=== PATIENT | male | born 1965 | race Caucasian/White ===

== ENCOUNTER → 2020-06-20 07:38 | Outpatient (CLI) | payer BC, SELFPAY ==
--- NOTE | 2020-06-20 07:51 | RAD_ITS ---
PROCEDURE: Fluoroscopic guided right shoulder Injection DATE: 06/20/2020. INDICATION: Male, 55 years old. Chronic right shoulder pain. PHYSICIAN: New Flanagan M.D. MEDICATIONS: 12 mg of BETAMETHASONE and 4 cc of 1% LIDOCAINE. 2% lidocaine administered subcutaneously for local anesthesia. ACCESS SITE: Right shoulder. NEEDLE: 22-gauge spinal needle. FLUOROSCOPY TIME (if supplied): (0:44) minutes/seconds. One image was obtained. FINDINGS: The risks, benefits, and alternatives to the procedure were explained to the patient. The specific risks of bleeding, infection, and neurovascular injury were detailed and accepted. Witnessed informed consent was obtained. A 22-gauge spinal needle was positioned under radiographic fluoroscopic localization. Approximately 2 cc of ISOVUE-300 instilled for localization purposes. Medication was then injected. The patient tolerated the procedure well without any immediate complications. RAD/Inj/Asp Dario Jt Should/Hip/Knee IMPRESSION: 1. Successful fluoroscopic guided right shoulder injection. Electronically Signed: New Flanagan, at 8:44 EDT , Service support ,
== END ==
PROVIDERS: PCP Family Medicine; Referring Provider Specialist; Visit Provider Specialist
DX: M19.011 Primary osteoarthritis, right shoulder (principal)
CPT/HCPCS: 20610; 77002; Q9967; J0702

== ENCOUNTER → 2024-10-16 | Outpatient (CLI) | payer BC, SELFPAY ==
[2024-10-16 17:35] LABS: Prothrombin Time (Protime)PT. 12.7 SECONDS (11.7-14.9)
[2024-10-16 18:42] LABS: CRP < 2.90 mg/L (0.0-3.0)
[2024-10-18 16:10] LABS: Endomysial Antibody IgA Negative (Negative); Immunoglobulin A 313 mg/dL (90-386); t-Transglutaminase IgA <2 U/mL (0-3)
[2024-10-21 16:08] LABS: Beef <0.10 kU/L (Class 0); Chocolate <0.10 kU/L (Class 0); Codfish <0.10 kU/L (Class 0); Corn 0.41 kU/L (Class I); Egg, Whole <0.10 kU/L (Class 0); Milk (Cow) <0.10 kU/L (Class 0); Mussels 0.24 kU/L (Class 0/I); Peanut 0.81 kU/L (Class II); Pork <0.10 kU/L (Class 0); Salmon <0.10 kU/L (Class 0); Shrimp 1.78 kU/L (Class III); Soybean 0.43 kU/L (Class I); Tuna <0.10 kU/L (Class 0); Wheat 0.59 kU/L (Class II)
== END | disposition home or self-care (01) ==
LOC: LAB 16:58
PROVIDERS: PCP Family Medicine; Referring Provider Nurse Practitioner Acute Care; Visit Provider Nurse Practitioner Acute Care
DX: R10.9 Unspecified abdominal pain (principal); R19.7 Diarrhea, unspecified; R15.2 Fecal urgency
CPT/HCPCS: 36415; 82784; 83516; 84443; 85610; 86003; 86005; 86140; 86255

== ENCOUNTER → 2024-10-25 | Outpatient (CLI) | payer BC, SELFPAY ==
[2024-10-27 07:09] LABS: Calprotectin, Stool 75 ug/g (0-120)
[2024-10-28 01:07] LABS: Pancreatic Elastase, Fecal > 800 (>200)
== END | disposition home or self-care (01) ==
LOC: LAB 09:24 → LABSPEC 09:25
PROVIDERS: PCP Family Medicine; Referring Provider Nurse Practitioner Acute Care; Visit Provider Nurse Practitioner Acute Care
DX: K58.9 Irritable bowel syndrome, unspecified (principal); R10.9 Unspecified abdominal pain; R19.7 Diarrhea, unspecified; R15.2 Fecal urgency
CPT/HCPCS: 82653; 83993; 87493; 87506

== ENCOUNTER → 2024-11-10 | Outpatient (CLI) | payer BC, SELFPAY ==
--- NOTE | 2024-11-10 08:20 | US_ITS ---
STUDY: ABDOMINAL ULTRASOUND - RIGHT UPPER QUADRANT; ELASTOGRAPHY REASON FOR VISIT: Male, 59 years old. Right upper quadrant pain. Alcohol abuse. TECHNIQUE: Ultrasound evaluation of the right upper quadrant was performed with real-time and static velez-scale imaging. Point quantification shear wave elastography was performed ([email or web address]). TECHNICAL QUALITY: Adequate. COMPARISON: None. FINDINGS: Liver: The liver is enlarged and measures 18.5 cm. There is increased echogenicity consistent with fatty infiltration. The bile ducts are within normal limits. There is hepatic color flow. The direction of portal flow is hepatopetal. There is a 2 cm x 2 cm x 1.6 cm cyst in the left lobe of the liver. There is also evidence of a 1.1 cm x 1.3 cm x 0.9 cm cyst in the right lobe. Median liver stiffness measured 5.3 kPa. Gallbladder: Normal distended gallbladder. The gallbladder wall measures 2.0 mm. There is a negative sonographic Elliott''s sign. There is no pericholecystic fluid. There are no gallstones. Common Bile Duct (C.B.D.): The common bile duct measures 3 mm. Pancreas: There is normal echogenicity of the visualized pancreas. There is no demonstrated pancreatic mass or cyst. Right Kidney: Normal size of the right kidney. The right kidney measures 10.4 cm x 7.2 cm x 6.2 cm. Normal renal cortex. The right cortex measures 1.5 cm. There is no demonstrated renal mass or cyst. There is no right hydronephrosis. US/ABD Limited w/ Elastography IMPRESSION: 1. Liver stiffness measures 5.3 kPa compatible with F0-F1 (Normal to mild liver fibrosis) Metavir score. 2. Hepatomegaly. Hepatic cysts. Electronically Signed: New Flanagan MD at 15:28 EST ,
== END | disposition home or self-care (01) ==
LOC: US 08:20
PROVIDERS: PCP Physician Assistant; Referring Provider Nurse Practitioner Acute Care; Visit Provider Nurse Practitioner Acute Care
DX: R10.9 Unspecified abdominal pain (principal); R19.7 Diarrhea, unspecified; R15.2 Fecal urgency
CPT/HCPCS: 76705; 76981

== ENCOUNTER 2025-01-05 13:06 | Day surgery (SDC) | payer BC, SELFPAY ==
--- NOTE | 2025-01-04 16:38 | PAT.ANESEVAL ---
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 When Was Last Pacemaker Check QUESTION #4 FULL TEXT: You/Your Family Experience fever (hyperthermia) with Anesthesia Last Oral Intake Last Oral intake: Last Oral Intake NPO since Meds taken in AM with sips of water? Meds patient instructed to take am of surgery PONV PONV - professor of anthropology: PONV - professor of anthropology Female No 01/04/25 15:16 HX of Motion Sickness No 01/04/25 15:16 HX of N/V After Surgery No 01/04/25 15:16 Non-Smoker No 01/04/25 15:16 Duration of Surgery greater No 01/04/25 15:16 than 60 minutes Number of Risk Factors PONV Score Respiratory Assessment Respiratory Assessment - professor of anthropology: Respiratory Tract Infection Hx - professor of anthropology Hx Respiratory Tract Infection No 01/04/25 15:16 STOP Sleep Apnea STOP Sleep Apnea - professor of anthropology: STOP Sleep Apnea - professor of anthropology Hx Hypertension Yes: still high but lower 01/04/25 15:16 than it was Hx Sleep Apnea No 01/04/25 15:16 CPAP BIPAP Do you snore loudly (louder No 01/04/25 15:16 than talking or can be heard Do you often feel tired/ No 01/04/25 15:16 fatigued/ sleepy during daytime? Has anyone observed you stop No 01/04/25 15:16 breathing during sleep? STOP Results Negative 01/04/25 15:16 QUESTION #5 FULL TEXT : Do you snore loudly (louder than talking or can be heard through closed doors)? 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 Specify any problems Hx of Preganancy in last 3 N/A 01/04/25 15:16 Months Nurse Filling Out Transfusion MGRIALMA 01/04/25 15:16 & Questions: Date: 01/04/25 01/04/25 15:16 Time: 15:18 01/04/25 15:16 Patient unable to answer at this time (ie. confused, unrespo /Reproduction History /Reproductive History - professor of anthropology: /Reproductive Hx- professor of anthropology Hx Now Gestational Age (in weeks): EDC: Hx Hx Para [facility] Medical History (Updated 01/04/25 @ 15:27 by Allie Workman) Wears glasses Wears dentures Alcohol use Marijuana use Open wound Bladder disease Arthritis Back pain History of GI bleed History of IBS Smoker Shortness of breath on exertion History of echocardiogram History of stress test Primary hypertension Pain of left hip Heartburn Diarrhea Home Medications ?Medication ?Instructions ?Recorded ?Last Taken ?Type amlodipine 5 mg tablet 5 mg PO QDAY 10/11/24 Unknown History losartan 100 mg tablet 100 mg PO QDAY 10/11/24 Unknown History pantoprazole 40 mg tablet,delayed 40 mg PO QDAY 10/11/24 Unknown History release loperamide 2 mg capsule (Imodium 4 mg PO DAILY 01/04/25 Unknown History A-D) Allergy/AdvReac Type Severity Reaction Status Date / Time No Known Allergies Allergy Verified 01/04/25 12:25 Surgical History (Updated 01/04/25 @ 12:30 by Allie Workman) History of nasal surgery History of tooth extraction History of colonoscopy History of appendectomy History of tonsillectomy and adenoidectomy History of foot surgery Social History (Updated 10/11/24 @ 07:21 by Yoly Tirpathi) Smoking Status: Current every day smoker tobacco type: cigarettes alcohol intake: current details: drinking about 15-20 1oz shots of alcohol nightly Audit: Pertinent Findings Pertinent Findings Stress test pertinent findings: November 23, 2024. Patient achieved 11.5 METS. Stress EKG showed sinus tachycardia. Exercise EKG is negative for ischemia. No regional wall motion abnormalities seen with exercise. Recommendation Anesthesia Recommendation Anesthesia recommendation: OPTIMIZED for anesthesia
[2025-01-05] VITALS (8 sets, daily range): BP systolic 107–172; BP diastolic 83–90; PULSE 70–99; RESP 16–20; TEMP 36.3–37.1; O2SAT 84–100; BMI 25.4
--- NOTE | 2025-01-05 14:15 | IMM_PTH ---
PATIENT: HAKAN MUÑOZ LOC: EN U#:[id number] AGE/SX: 59/M ROOM: RE01/05/[address]: Dr. Riky Perez DO : 1965 BED: DIS: 01/05/2025 SPEC #: [id number] RECD: 01/08/25 08:16 STATUS: FIDENCIO REQ #: [id number] DAVID: 01/05/25 14:[address]: Riky Perez DEPT: IMMUNOHISTOCHEMISTRY RECD BY: Hay Roe ENTERED: 01/08/25 08:17 SP TYPE: IMMUNO OTHR DR: ROSSANA Scales Tissues: A - Gastric mucous membrane Procedures: H Pylori (initial) PHYSICIAN & INSTITUTION [place] [address] SPECIMEN INFORMATION: Tissue Source: A- Gastric body biopsy Clinical Info: Abdominal pain and diarrhea Specimen Number: [id number] CPT code: 50612 METHODOLOGY: Deparaffinized sections of prefer/formalin-fixed tissue or PAP/DQ stained slides are incubated with monoclonal/polyclonal antibodies/oligonucleotide probes. Localization is made via biotin free immunoperoxidase method. Appropriate controls are performed and reacted as expected. Results on target cell population are indicated in the following table: RESULTS: ANTIBODY / CLONE RESULT Block AH Pylori (polyclonal) negative These tests were developed and their performance characteristics determined by [facility]. They may not have been cleared or approved by the U.S. Food and Drug Administration. The FDA has determined that such clearance or approval is not necessary. The above immunohistochemical/dualISH markers are ordered and reviewed by the Pathologist. INTERPRETATION: A. Gastric body, biopsy: Negative for Helicobacter pylori organisms. 01/09/2025
--- NOTE | 2025-01-05 14:15 | COLBX_PTH ---
PATIENT: HAKAN MUÑOZ LOC: EN U#:[id number] AGE/SX: 59/M ROOM: RE01/05/[address]: Dr. Riky Perez DO : 1965 BED: DIS: 01/05/2025 SPEC #: [id number] RECD: 01/05/25 17:21 STATUS: FIDENCIO ISREAL #: [id number] DAVID: 01/05/25 14:[address]: Riky Perez DEPT: SURGICAL PATHOLOGY RECD BY: Sultana Samayoa ENTERED: 01/08/25 08:42 SP TYPE: COLON BX OTHR DR: ROSSANA Scales Tissues: A - Gastric mucous membrane B - Duodenum, NOS C - Esophagus, NOS D - Transverse colon E - COLON BIOPSY F - Cecum, NOS G - Ileum, NOS H - COLON BIOPSY I - Rectum, NOS Procedures: Special Stain Group I Surgery Specimen Level IV Alcian Blue/PAS (control) HEADER OPERATION: Colonoscopy with polypectomy and biopsy, EGD with biopsy PRE-OP DIAGNOSIS: Abdominal pain and diarrhea TISSUE SUBMITTED: A- Gastric body biopsy, B- Duodenum biopsy, C- Distal esophagus biopsy,D- Transverse polyp biopsy, E- Hepatic flexure polyp, F- Cecum polyp, G- Terminal ileum biopsy, H- Random colon biopsy, I- Rectal polyp MICROSCOPIC DIAGNOSIS A. Gastric body, biopsy: Mild gastritis. See microscopic description and comment. B. Duodenum, biopsy: Fragments of duodenal mucosa, no pathologic diagnosis. C. Distal esophagus, biopsy: Fragments of gastroesophageal mucosa with chronic inflammation. Intestinal metaplasia (goblet cell metaplasia) is not identified. See comment. D. Transverse colon polyp, polypectomy: Tubular adenoma. E. Hepatic flexure polyp, polypectomy: Tubular adenoma. F. Cecal polyp, polypectomy: Fragments of tubular adenoma. Fragments of fecal material. G. Terminal ileum, biopsy: Fragments of small intestinal mucosa, no pathologic diagnosis. H. Colon, random biopsy: Fragments of colonic mucosa, no pathologic diagnosis. I. Rectal polyp, polypectomy: Hyperplastic polyp. SJ. 01/09/2025 COMMENT A. The results of immunohistochemistry for Helicobacter pylori will be reported separately ([id number]). C. Alcian blue/PAS stain with matched control is used in the evaluation of the specimen. MICROSCOPIC DESCRIPTION Slides are reviewed. A. The specimen shows fragments of gastric mucosa with chronic inflammatory cell infiltrates in the lamina propria consisting of lymphocytes and plasma cells, consistent with mild chronic gastritis. Focal mucosal congestion is also noted. GROSS DESCRIPTION A. Received in fixative is one container labeled with the patient's name and designated Gastric body biopsy. The specimen consists of multiple irregular fragments of light [place]uil[place] soft tissue that in aggregate measure 1 x 0.5 x 0.1 cm. The specimen is totally submitted in one cassette. B. Received in fixative is one container labeled with the patient's name and designated Duodenum biopsy. The specimen consists of multiple irregular fragments of light [place]il[place] soft tissue that in aggregate measure 0.8 x 0.2 x 0.1 cm. The specimen is totally submitted in one cassette. C. Received in fixative is one container labeled with the patient's name and designated Distal esophagus biopsy. The specimen consists of two irregular fragments of light [place]uil[place] soft tissue that in aggregate measure 0.6 x 0.5 x 0.1 cm. The specimen is totally submitted in one cassette. D. Received in fixative is one container labeled with the patient's name and designated Transverse colon polyp. The specimen consists of a pink-red polyp measuring 0.6 x 0.6 x 0.5 cm. The presumed base is inked. The polyp is bisected and submitted entirely in one cassette. E. Received in fixative is one container labeled with the patient's name and designated Hepatic flexure polyp. The specimen consists of a pink-red polyp measuring 0.7 x 0.6 x 0.6 cm. The presumed base is inked. The polyp is bisected and submitted entirely in one cassette. F. Received in fixative is one container labeled with the patient's name and designated Cecum polyp. The specimen consists of multiple irregular fragments of light [place]il[place] soft tissue mixed with fecal material that in aggregate measure 1.5 x 0.6 x 0.1 cm. The specimen is totally submitted in one cassette. G. Received in fixative is one container labeled with the patient's name and designated Terminal ileum biopsy. The specimen consists of two irregular fragments of light aguil[place] soft tissue that in aggregate measure 0.7 x 0.2 x 0.1 cm. The specimen is totally submitted in one cassette. H. Received in fixative is one container labeled with the patient's name and designated Random colon biopsy. The specimen consists of multiple irregular fragments of light aguilera soft tissue that in aggregate measure 0.8 x 0.6 x 0.1 cm. The specimen is totally submitted in one cassette. I. Received in fixative is one container labeled with the patient's name and designated Rectal polyp. The specimen consists of one irregular fragment of light aguilera soft tissue that measures 0.3 x 0.3 x 0.1 cm. The specimen is totally submitted in one cassette. SJ.mr 01/08/2025 TC:1 CPT:20882k3,64971
--- NOTE | 2025-01-05 15:15 | PCM.PRE.AN2 ---
ASA Classification* ASA Classification ASA Classification: 2 Assessment & Plan Anesthesia* Anesthesia Assessment Anesthesia Assessment: Discussed sedation and/or anesthesia options, risks, benefits, and alternatives with patient/parents/legal guardian/POA. Questions invited. The patient/parents/legal guardian/POA seems to understand and agrees to proceed with anesthesia plan. Reviewed the physical assessment, medical history, allergy history and patient home medications list prior to surgery/procedure/anesthetic and documented any changes. Performed airway and anesthesia risk assessments. Anesthesia Type Anesthesia Type: MAC History Source History Obtained from:: Patient and Chart Anesthesia Focused Assessment* Temperature: 98.8 F Pulse Rate: 99 Blood Pressure: 172/90 Respiratory Rate: 16 Pulse Ox: 84 Oxygen Delivery Method: Room Air Airway Assessment Mouth opens: >3 cm Mallampati Score: IV Teeth Condition: Dentures (Patient has full top dentures. They are out.) and Missing (Several missing teeth on the bottom. Rest are tight.) Neck Range of motion (ROM): Full ROM Focused Labs Anesthesia Preop lab: CBC CHEMISTRY TSH 2.640 uIU/mL (0.358-3.740) 10/16/24 17:04 10/16/24 COAG PT 12.7 SECONDS (11.7-14.9) 10/16/24 17:04 10/16/24 Pre-Assessment Diagnosis/Proposed Procedure Planned Operative Procedure(s): EGD, Colonoscopy Anesthesia History Anesthesia History - special procedure tech: Anesthesia History - special procedure tech Hx Hospitalization No 01/04/25 15:16 Any Problems With Anesthesia No 01/04/25 15:16 Cholinesterase deficiency No 01/04/25 15:16 You/Your Family Experience No 01/04/25 15:16 fever (hyperthermia) with Relationship Recent Exposure to Contagious No 01/05/25 13:39 Disease Does patient have nerve No 01/04/25 15:16 stimulator Patient instructed to have device shut off --Does patient have Pacemaker No 01/05/25 13:39 or ICD? When Was Last Pacemaker Check QUESTION #4 FULL TEXT: You/Your Family Experience fever (hyperthermia) with Anesthesia Last Oral Intake Last Oral intake: Last Oral Intake NPO since 10:00 01/05/25 13:39 Meds taken in AM with sips of No 01/05/25 13:39 water? Meds patient instructed to take am of surgery Any additional information?: Yes NPO since: 10:00 (patient finished prep at 10 AM.) Meds taken in AM with sips of water?: Yes PONV PONV - special procedure tech: PONV - special procedure tech Female No 01/04/25 15:16 HX of Motion Sickness No 01/04/25 15:16 HX of N/V After Surgery No 01/04/25 15:16 Non-Smoker No 01/04/25 15:16 Duration of Surgery greater No 01/04/25 15:16 than 60 minutes Number of Risk Factors PONV Score Height & Weight Height & Weight: Anesthesia: Height & Weight Height 5 ft 11 in 01/05/25 13:39 Weight: 82.554 kg 01/05/25 13:39 Body Mass Index (BMI) 25.4 01/05/25 13:39 Respiratory Assessment Respiratory Assessment - special procedure tech: Respiratory Tract Infection Hx - special procedure tech Hx Respiratory Tract Infection No 01/04/25 15:16 STOP Sleep Apnea STOP Sleep Apnea - special procedure tech: STOP Sleep Apnea - special procedure tech Hx Hypertension Yes: still high but lower 01/04/25 15:16 than it was Hx Sleep Apnea No 01/04/25 15:16 CPAP BIPAP Do you snore loudly (louder No 01/04/25 15:16 than talking or can be heard Do you often feel tired/ No 01/04/25 15:16 fatigued/ sleepy during daytime? Has anyone observed you stop No 01/04/25 15:16 breathing during sleep? STOP Results Negative 01/04/25 15:16 QUESTION #5 FULL TEXT : Do you snore loudly (louder than talking or can be heard through closed doors)? Tobacco Use History Tobacco Use History - special procedure tech: Tobacco Use History - special procedure tech Tobacco Use Smoking Status Current every day smoker 01/04/25 15:16 Hx Tobacco Use Yes 01/04/25 15:16 Years Smoking Packs Smoked per Day Smoking Cessation Date was within the last 15 years Hx Smoking Cessation Date Hx Smoking Cessation Counseling Any additional information?: Yes Smoking Status: Current every day smoker (Patient smoked today.) Hematologic Medial History Hematologic Hx - special procedure tech: Hematologic Medical Hx - galvanizer zinc Hx of Blood Transfusion No 01/04/25 15:16 Hx of Transfusion in last 3 No 01/04/25 15:16 Months Date of Last Transfusion (if within last 3 months) Ever experience any problems No 01/04/25 15:16 with transfusion(s)? Specify any problems Hx of Preganancy in last 3 N/A 01/04/25 15:16 Months Nurse Filling Out Transfusion MGRIFFITH 01/04/25 15:16 & Questions: Date: 01/04/25 01/04/25 15:16 Time: 15:18 01/04/25 15:16 Patient unable to answer at this time (ie. confused, unrespo /Reproduction History /Reproductive History - special procedure tech: /Reproductive Hx- special procedure tech Hx Now Gestational Age (in weeks): EDC: Hx Hx Para [facility] History Wears glasses Wears dentures Alcohol use Marijuana use Open wound Bladder disease Arthritis Back pain History of GI bleed History of IBS Smoker Shortness of breath on exertion History of echocardiogram History of stress test Primary hypertension Pain of left hip Heartburn Diarrhea Home Medications ?Medication ?Instructions ?Recorded ?Last Taken ?Type amlodipine 5 mg tablet 5 mg PO QDAY 10/11/24 01/05/25 History losartan 100 mg tablet 100 mg PO QDAY 10/11/24 01/05/25 History pantoprazole 40 mg tablet,delayed 40 mg PO QDAY 10/11/24 Unknown History release loperamide 2 mg capsule (Imodium 4 mg PO DAILY 01/04/25 Unknown History A-D) Allergy/AdvReac Type Severity Reaction Status Date / Time No Known Allergies Allergy Verified 01/05/25 13:38 Surgical History History of nasal surgery History of tooth extraction History of colonoscopy History of appendectomy History of tonsillectomy and adenoidectomy History of foot surgery Social History Smoking Status: Current every day smoker tobacco type: cigarettes alcohol intake: current details: drinking about 15-20 1oz shots of alcohol nightly Review of Systems (Anesthesia) ROS Narrative System reviewed and no additional complaints, except as documented.
--- NOTE | 2025-01-05 15:31 | PCM.HP.STD ---
HPI - General General Date of Admission: 01/05/25 Date of Service: 01/05/25 Chief Complaint: Abdominal pain and diarrhea HPI Narrative HAKAN MUÑOZ, is a 59 M who presents for an EGD and colonoscopy regarding abdominal pain and diarrhea LABS 08/09/2024 HGB 11.5, K+ 3.3, Fe panel WNL, Ferritin 708 08/15/2024 O&P, Giardia, H. pylori, & Cryptosporidium were all negative CT A&P 08/04/2024 The liver demonstrates a normal noncontrast attenuation. Interval increase in size in the low attenuating lesions within the left and right hepatic lobe, the largest measures 1.8 cm in liver segment 3 (series 3, image 31), previously measured 0.6 cm. These are most compatible with benign liver cysts. Multiple new calcified splenic granulomas. Newly mildly prominent bilateral inguinal lymph nodes measuring 1.0 cm bilaterally. They demonstrate normal morphology. No acute retroperitoneal abnormality. - diarrhea, nausea and LLQ pain x4-5 months - diarrhea every morning - every hour - can be a small amount - occasional blood - BRBPR - can color the water red - denies any rectal pain - c/o bloating - pain is in the lower abdomen - pain can be worse with a BM - pain is not intense 3/10 - abdominal cramping - he started pantoprazole in the past 2 weeks - denies any family h/o celiac, or colon CA - maternal uncle with colon cancer - reports he is feeling feverish - he does experience some SOB - ongoing for the past 18 months - reports since starting BP med this has helped - denies any h/o cardiac w/u - he reports he is SOB taking out the trash - to the point now that he is taking the trash down in his car because of GONZALEZ EtOH 15-20 shots of bourbon or whisky a day for many years - anemia - reports without alcohol he cannot sleep - makes him feel guilty - denies having any eye plate put in worker - denies having any desire to quit drinking - Metamucil failed COLON > 10 years ago 59y/o male presents for consultation with complaints of diarrhea, nausea and LLQ pain for several years, worse over the past 3-4 months. He started pantoprazole 40mg daily two weeks ago without improvement. LLQ Pain is 3/10 and can worsen with a BM. He also experiences occasional BRBPR with BM. He denies any improvement with Metamucil. Labs completed 08/09/2024 revealed mild anemia with normal Fe panel. Ferritin is elevated; however, this is likely secondary to large quantities of daily alcohol intake. CT completed 08/04/2024 revealed enlargement of liver lesions; likely cysts. He denies having any desire to cease alcohol intake and we have discussed risks including if he continues to consume daily alcohol. [facility] Medical History Wears glasses Wears dentures Alcohol use Marijuana use Open wound Bladder disease Arthritis Back pain History of GI bleed History of IBS Smoker Shortness of breath on exertion History of echocardiogram History of stress test Primary hypertension Pain of left hip Heartburn Diarrhea Home Medications ?Medication ?Instructions ?Recorded ?Last Taken ?Type amlodipine 5 mg tablet 5 mg PO QDAY 10/11/24 01/05/25 History losartan 100 mg tablet 100 mg PO QDAY 10/11/24 01/05/25 History pantoprazole 40 mg tablet,delayed 40 mg PO QDAY 10/11/24 Unknown History release loperamide 2 mg capsule (Imodium 4 mg PO DAILY 01/04/25 Unknown History A-D) Allergy/AdvReac Type Severity Reaction Status Date / Time No Known Allergies Allergy Verified 01/05/25 13:38 Surgical History History of nasal surgery History of tooth extraction History of colonoscopy History of appendectomy History of tonsillectomy and adenoidectomy History of foot surgery Social History Smoking Status: Current every day smoker (Patient smoked today.) tobacco type: cigarettes alcohol intake: current details: drinking about 15-20 1oz shots of alcohol nightly ROS Constitutional Constitutional: Denies fatigue, fever(s), poor appetite, weight gain or weight loss Gastrointestinal Gastrointestinal: Denies belching, bloating, change in bowel habits, change in stool character, chewing difficulty, coffee ground emesis, constipation, cramping, diarrhea, dyspepsia, dysphagia, early satiety, excessive flatus, fecal incontinence, heartburn, hematemesis, hematochezia, hemorrhoids, loose stools, melena, nausea, odynophagia, rectal bleeding, tenesmus, vomiting or weight changes Vital Signs Vital Signs Vital Signs: 01/05/25 13:39 01/05/25 13:39 01/05/25 15:22 Temperature 98.8 F 98.8 F Temperature Source Temporal Pulse Rate 99 99 Respiratory Rate 16 16 Respiratory Pattern Normal Blood Pressure 172/90 H 172/90 H Blood Pressure Mean 117 Blood Pressure Source Monitor Blood Pressure Position Semi-Fowlers Pulse Ox 84 84 Oxygen Delivery Method Room Air Room Air Weight Weight: 182 lb Body Mass Index (BMI) 25.4 Physical Exam Const alert, oriented x3, no apparent distress and healthy appearing General Appearance: cooperative GI normal to inspection, nondistended, normoactive bowel sounds, soft to palpation, non-tender and non-distended Percussion: normal to percussion Rectal Exam: deferred Assessment & Plan Assessment/Plan (1) LLQ pain: (2) Diarrhea: QUALIFIERS: Diarrhea type: unspecified type Qualified Code(s): R19.7 - Diarrhea, unspecified (3) Abdominal pain: (4) Left lower quadrant abdominal pain: (5) Diarrhea: (6) Heartburn: PLAN: Assessment and Plan (1) Diarrhea: Status: Acute Qualifiers: Diarrhea type: unspecified type Qualified Code(s): R19.7 - Diarrhea, unspecified (2) Fecal urgency: Status: Acute (3) Alcohol abuse: Status: Acute (4) LLQ pain: Status: Acute Orders: Orders Allergen, Food Profile 14 10/16/24 R10.9 - Unspecified abdominal pain, R15.2 - Fecal urgency, R19.7 - Diarrhea, unspecified CRP 10/16/24 R10.9 - Unspecified abdominal pain, R15.2 - Fecal urgency, R19.7 - Diarrhea, unspecified ENTERIC PATHOGEN PANEL STOOL 10/16/24 K58.9 - Irritable bowel syndrome, unspecified, R10.9 - Unspecified abdominal pain, R15.2 - Fecal urgency, R19.7 - Diarrhea, unspecified CDIFF (PCR) 10/16/24 R10.9 - Unspecified abdominal pain, R15.2 - Fecal urgency, R19.7 - Diarrhea, unspecified Calprotectin, Stool 10/16/24 R10.9 - Unspecified abdominal pain, R15.2 - Fecal urgency, R19.7 - Diarrhea, unspecified Celiac Disease Profile 10/16/24 R10.9 - Unspecified abdominal pain, R15.2 - Fecal urgency, R19.7 - Diarrhea, unspecified Pancreatic Elastase, Fecal 10/16/24 R10.9 - Unspecified abdominal pain, R15.2 - Fecal urgency, R19.7 - Diarrhea, unspecified Thyroid Stim Hormone (TSH) 10/16/24 R10.9 - Unspecified abdominal pain, R15.2 - Fecal urgency, R19.7 - Diarrhea, unspecified Prothrombin Time w/INR 10/16/24 R10.9 - Unspecified abdominal pain, R15.2 - Fecal urgency, R19.7 - Diarrhea, unspecified ABD Limited w/ Elastography 10/16/24 R10.9 - Unspecified abdominal pain, R15.2 - Fecal urgency, R19.7 - Diarrhea, unspecified Plan 59y/o male presents for consultation with complaints of diarrhea, nausea and LLQ pain for several years, worse over the past 3-4 months. He started pantoprazole 40mg daily two weeks ago without improvement. LLQ Pain is 3/10 and can worsen with a BM. He also experiences occasional BRBPR with BM. He denies any improvement with Metamucil. Labs completed 08/09/2024 revealed mild anemia with normal Fe panel. Ferritin is elevated; however, this is likely secondary to large quantities of daily alcohol intake. CT completed 08/04/2024 revealed enlargement of liver lesions; likely cysts. He denies having any desire to cease alcohol intake and we have discussed risks including if he continues to consume daily alcohol. I have ordered labs, ABD US/Elastography and scheduled him for bidirectional endoscopies. He complains of worsening GONZALEZ and I advised he will require stress test with clearance prior to procedure. Patient Instructions: 1. Start Imodium, trail 1 tablet daily and increase as needed for diarrhea, do not exceed 4 tablets in 24 hours 2. Follow-up with PCP for c/o worsening GONZALEZ and Stress Test prior to Colonoscopy and EGD
--- NOTE | 2025-01-05 16:10 | OP.EGD_ITS ---
Patient Name: Norberto Mullins Procedure Date: 01/05/2025 3:34 PM Date of : 1965 Age: 59 Procedure: Upper GI endoscopy Indications: Epigastric abdominal pain, Suspected esophageal reflux Providers: Riky Perez DO Referring MD: Angelito Scales Medicines: Monitored Anesthesia Care Patient Profile: This is a 59 year old male. Refer to note in patient chart for documentation of history and physical. Patient has symptoms of chronic epigastric abdominal pain, chronic heartburn and chronic nausea. Complications: No immediate complications. Procedure: Pre-Anesthesia Assessment: - Prior to the procedure, a History and Physical was performed, and patient medications and allergies were reviewed. The patient is competent. The risks and benefits of the procedure and the sedation options and risks were discussed with the patient. All questions were answered and informed consent was obtained. Patient identification and proposed procedure were verified by the physician in the pre-procedure area. Mental Status Examination: alert and oriented. Airway Examination: normal oropharyngeal airway and neck mobility. Respiratory Examination: clear to auscultation. CV Examination: normal. Prophylactic Antibiotics: The patient does not require prophylactic antibiotics. Prior Anticoagulants: The patient has taken no anticoagulant or antiplatelet agents except for NSAID medication. ASA Grade Assessment: II - A patient with mild systemic disease. After reviewing the risks and benefits, the patient was deemed in satisfactory condition to undergo the procedure. The anesthesia plan was to use monitored anesthesia care (MAC). Immediately prior to administration of medications, the patient was re-assessed for adequacy to receive sedatives. The heart rate, respiratory rate, oxygen saturations, blood pressure, adequacy of pulmonary ventilation, and response to care were monitored throughout the procedure. The physical status of the patient was re-assessed after the procedure. After obtaining informed consent, the endoscope was passed under direct vision. Throughout the procedure, the patient's blood pressure, pulse, and oxygen saturations were monitored continuously. The colonoscope was introduced through the mouth, and advanced to the second part of duodenum. The upper GI endoscopy was accomplished without difficulty. The patient tolerated the procedure well. Scope In: 3:47:52 PM Scope Out: 3:51:36 PM Total Procedure Duration Time 0 hours 3 minutes 44 seconds Findings: LA Grade B (one or more mucosal breaks greater than 5 mm, not extending between the tops of two mucosal folds) esophagitis with no bleeding was found 36 to 39 cm from the incisors. Biopsies were taken with a cold forceps for histology. Verification of patient identification for the specimen was done. Estimated blood loss was minimal. Mild portal hypertensive gastropathy was found in the gastric body. Biopsies were taken with a cold forceps for histology. Biopsies were taken with a cold forceps for Helicobacter pylori testing. Verification of patient identification for the specimen was done. Estimated blood loss was minimal. Patchy mildly erythematous mucosa without active bleeding and with no stigmata of bleeding was found in the first portion of the duodenum. Biopsies were taken with a cold forceps for histology. Verification of patient identification for the specimen was done. Estimated blood loss was minimal. Impression: - LA Grade B reflux esophagitis with no bleeding. Biopsied. - Portal hypertensive gastropathy. Biopsied. - Erythematous duodenopathy. Biopsied. Recommendation: - Discharge patient to home. - Resume previous diet. - Continue present medications. - Await pathology results. Procedure Code(s): --- Professional --- 49751, Esophagogastroduodenoscopy, flexible, transoral; with biopsy, single or multiple CPT copyright 2021 [employer] [employer]. All rights reserved. The codes documented in this report are preliminary and upon crackling press operator review may be revised to meet current compliance requirements. Riky Perez DO 01/05/2025 4:10:01 PM This report has been signed electronically. Number of Addenda: 0 Note Initiated On: 01/05/2025 3:34 PM
--- NOTE | 2025-01-05 16:10 | OP.CCLET_ITS ---
01/05/2025 Angelito Scales Re : Upper GI endoscopy procedure for Norberto Mullins Dear Joce This procedure was performed on Sunday, January 05, 2025. My impressions and recommendations are as follows: Impressions : - LA Grade B reflux esophagitis with no bleeding. Biopsied. - Portal hypertensive gastropathy. Biopsied. - Erythematous duodenopathy. Biopsied. Recommendations : - Discharge patient to home. - Resume previous diet. - Continue present medications. - Await pathology results. My findings are described in the full procedure note, which is enclosed. If I can be of further assistance, please feel free to contact me at . Sincerely, Riky Perez, 01/05/2025 4:10:01 PM This report has been signed electronically.
--- NOTE | 2025-01-05 16:14 | PCM.POST.ANE ---
Anesthesia: Postop Eval I Current Vital Signs Temperature: 97.7 F Pulse Rate: 88 Blood Pressure: 107/83 Respiratory Rate: 20 Pulse Ox: 97 Assessment Airway patent: Yes Spontaneous unlabored respirations: Yes nausea: No Vomiting: No Anesthesia Complication: No Fluid Hydration Crystalloid volume administer (ml): 40 Total IV fluid infused: 40 Progress Note Anesthesia document: Postop Eval 1 completed: Yes
--- NOTE | 2025-01-05 16:18 | OP.CCLET_ITS ---
01/05/2025 Angelito Scales Re : Colonoscopy procedure for Norberto Mullins Dear Joce This procedure was performed on Sunday, January 05, 2025. My impressions and recommendations are as follows: Impressions : - Three 1 to 2 mm polyps in the transverse colon, at the hepatic flexure and in the cecum, removed with a hot snare. Resected and retrieved. - One 4 mm polyp in the rectum, removed with a jumbo cold forceps. Resected and retrieved. - Congested mucosa in the recto-sigmoid colon, in the sigmoid colon, at the splenic flexure and at the hepatic flexure. Biopsied. - Mild inflammation was found in the ileum secondary to ileitis. Biopsied. - Diverticulosis in the recto-sigmoid colon, in the sigmoid colon and in the descending colon. - Stool in the rectum, in the recto-sigmoid colon, in the sigmoid colon and in the cecum. Recommendations : - Discharge patient to home. - Resume regular diet. - Continue present medications. - Await pathology results. - Repeat colonoscopy in 3 years for surveillance. - Return to GI office. My findings are described in the full procedure note, which is enclosed. If I can be of further assistance, please feel free to contact me at . Sincerely, Riky Perez, 01/05/2025 4:17:52 PM This report has been signed electronically.
--- NOTE | 2025-01-05 16:18 | OP.COLON_ITS ---
Patient Name: Norberto Mullins Procedure Date: 01/05/2025 3:51 PM Date of : 1965 Age: 59 Procedure: Colonoscopy Indications: Chronic diarrhea Providers: Riky Perez DO Referring MD: Angelito Scales Medicines: Monitored Anesthesia Care Patient Profile: This is a 59 year old male. Refer to note in patient chart for documentation of history and physical. Patient has symptoms of chronic epigastric abdominal pain, chronic heartburn and chronic nausea. Last Colonoscopy: none. The patient's first colonoscopy is today. Complications: No immediate complications. Procedure: Pre-Anesthesia Assessment: - Prior to the procedure, a History and Physical was performed, and patient medications and allergies were reviewed. The patient is competent. The risks and benefits of the procedure and the sedation options and risks were discussed with the patient. All questions were answered and informed consent was obtained. Patient identification and proposed procedure were verified by the physician in the pre-procedure area. Mental Status Examination: alert and oriented. Airway Examination: normal oropharyngeal airway and neck mobility. Respiratory Examination: clear to auscultation. CV Examination: normal. Prophylactic Antibiotics: The patient does not require prophylactic antibiotics. Prior Anticoagulants: The patient has taken no anticoagulant or antiplatelet agents except for NSAID medication. ASA Grade Assessment: II - A patient with mild systemic disease. After reviewing the risks and benefits, the patient was deemed in satisfactory condition to undergo the procedure. The anesthesia plan was to use monitored anesthesia care (MAC). Immediately prior to administration of medications, the patient was re-assessed for adequacy to receive sedatives. The heart rate, respiratory rate, oxygen saturations, blood pressure, adequacy of pulmonary ventilation, and response to care were monitored throughout the procedure. The physical status of the patient was re-assessed after the procedure. After I obtained informed consent, the scope was passed under direct vision. Throughout the procedure, the patient's blood pressure, pulse, and oxygen saturations were monitored continuously. The colonoscope was introduced through the anus and advanced to the terminal ileum. The colonoscopy was performed without difficulty. The patient tolerated the procedure well. The quality of the bowel preparation was adequate. The terminal ileum, ileocecal valve, appendiceal orifice, and rectum were photographed. Scope In: 3:53:10 PM Scope Withdrawal Time 0 hours 5 minutes 8 seconds Scope Out: 4:04:24 PM Total Procedure Duration Time 0 hours 11 minutes 14 seconds Findings: The perianal and digital rectal examinations were normal. Three sessile polyps were found in the transverse colon, hepatic flexure and cecum. The polyps were 1 to 2 mm in size. These polyps were removed with a hot snare. Resection and retrieval were complete. Verification of patient identification for the specimen was done by the physician using the patient's date. Estimated blood loss: none. A 4 mm polyp was found in the rectum. The polyp was sessile. The polyp was removed with a jumbo cold forceps. Resection and retrieval were complete. Verification of patient identification for the specimen was done. Estimated blood loss was minimal. An area of mildly congested mucosa was found in the recto-sigmoid colon, in the sigmoid colon, at the splenic flexure and at the hepatic flexure. Biopsies were taken with a cold forceps for histology. Verification of patient identification for the specimen was done. Estimated blood loss was minimal. Localized mild inflammation characterized by congestion (edema) was found in the terminal ileum. Biopsies were taken with a cold forceps for histology. Verification of patient identification for the specimen was done. Estimated blood loss was minimal. Multiple small-mouthed diverticula were found in the recto-sigmoid colon, sigmoid colon and descending colon. Stool was found in the rectum, in the recto-sigmoid colon, in the sigmoid colon and in the cecum. Impression: - Three 1 to 2 mm polyps in the transverse colon, at the hepatic flexure and in the cecum, removed with a hot snare. Resected and retrieved. - One 4 mm polyp in the rectum, removed with a jumbo cold forceps. Resected and retrieved. - Congested mucosa in the recto-sigmoid colon, in the sigmoid colon, at the splenic flexure and at the hepatic flexure. Biopsied. - Mild inflammation was found in the ileum secondary to ileitis. Biopsied. - Diverticulosis in the recto-sigmoid colon, in the sigmoid colon and in the descending colon. - Stool in the rectum, in the recto-sigmoid colon, in the sigmoid colon and in the cecum. Recommendation: - Discharge patient to home. - Resume regular diet. - Continue present medications. - Await pathology results. - Repeat colonoscopy in 3 years for surveillance. - Return to GI office. Procedure Code(s): --- Professional --- 05857, Colonoscopy, flexible; with removal of tumor(s), polyp(s), or other lesion(s) by snare technique 87082, 59, Colonoscopy, flexible; with biopsy, single or multiple CPT copyright 2021 [employer]. All rights reserved. The codes documented in this report are preliminary and upon behavioral health director review may be revised to meet current compliance requirements. Riky Perez DO 01/05/2025 4:17:52 PM This report has been signed electronically. Number of Addenda: 0 Note Initiated On: 01/05/2025 3:51 PM
--- NOTE | 2025-01-05 21:32 | POSTOPAN2_ITS ---
Anesthesia Postop Eval I Sum Postop Eval Completion status Anesthesia document: Postop Eval 1 completed: Yes Anesthesia Postop Eval I Summary Anesthesia Postop Eval I Summary: Anesthesia Postop Eval I: Assessment Summary Airway patent Yes 01/05/25 16:14 [email or web address] Spontaneous unlabored Yes 01/05/25 16:14 [email or web address] respirations Mental status nausea No 01/05/25 16:14 [email or web address] [email or web address] Vomiting No 01/05/25 16:14 [email or web address] Anesthesia Postop Eval I: Fluid Summary Crystalloid volume administer 40 01/05/25 16:14 [email or web address] (ml) Colloids volume administered ( ml) Blood Product volume administered (ml) Total IV fluid infused 40 01/05/25 16:14 [email or web address] Anesthesia Postop Eval I: Summary Notes Anesthesia Complication No 01/05/25 16:14 [email or web address] Anesthesia Complication Comment: Post-operative progress note Anesthesia: Postop Eval II Evaluation Mental status: Awake and Calm Pain Level: 0 nausea: No Vomiting: No Complications Anesthesia Complication: No
--- NOTE | 2025-01-05 21:32 | PCM.POSTANE2 ---
Anesthesia Postop Eval I Sum Postop Eval Completion status Anesthesia document: Postop Eval 1 completed: Yes Anesthesia Postop Eval I Summary Anesthesia Postop Eval I Summary: Anesthesia Postop Eval I: Assessment Summary Airway patent Yes 01/05/25 16:14 AIRPORT [email or web address] Spontaneous unlabored Yes 01/05/25 16:14 AIRPORT [email or web address] [email or web address] respirations Mental status nausea No 01/05/25 16:14 AIRPORT OPERATIONS [email or web address] Vomiting No 01/05/25 16:14 AIRPORT [email or web address] Anesthesia Postop Eval I: Fluid Summary Crystalloid volume administer 40 01/05/25 16:14 AIRPORT [email or web address] (ml) Colloids volume administered ( ml) Blood Product volume administered (ml) Total IV fluid infused 40 01/05/25 16:14 AIRPORT [email or web address] Anesthesia Postop Eval I: Summary Notes Anesthesia Complication No 01/05/25 16:14 AIRPORT [email or web address] Anesthesia Complication Comment: Post-operative progress note Anesthesia: Postop Eval II Evaluation Mental status: Awake and Calm Pain Level: 0 nausea: No Vomiting: No Complications Anesthesia Complication: No
== END 2025-01-05 16:44 | disposition home or self-care (01) ==
LOC: EN 13:10 → AC 13:11
PROVIDERS: PCP Physician Assistant; Referring Provider Physician Assistant; Visit Provider Internal Medicine Gastroenterology
PROC: 0DJD8ZZ Inspection of Lower Intestinal Tract, Via Natural or Artificial Opening Endoscopic (ICD-10-PCS; CPT 45378; principal; 2025-01-05 14:10)
DX: R10.32 Left lower quadrant pain (principal); K76.6 Portal hypertension; K57.30 Diverticulosis of large intestine without perforation or abscess without bleeding; K62.1 Rectal polyp; K21.00 Gastro-esophageal reflux disease with esophagitis, without bleeding; F10.10 Alcohol abuse, uncomplicated; I10 Essential (primary) hypertension; Z79.899 Other long term (current) drug therapy; Z90.49 Acquired absence of other specified parts of digestive tract; F17.210 Nicotine dependence, cigarettes, uncomplicated; R19.7 Diarrhea, unspecified; R12 Heartburn; K31.89 Other diseases of stomach and duodenum; K63.5 Polyp of colon; D12.0 Benign neoplasm of cecum; K63.89 Other specified diseases of intestine; K29.70 Gastritis, unspecified, without bleeding
CPT/HCPCS: 45380; 45385; 43239; 88305; 88312; 88342; A4216; J2405

== ENCOUNTER → 2025-01-22 | Outpatient (CLI) | payer BC, SELFPAY ==
--- NOTE | 2025-01-22 15:30 | RAD_ITS ---
EXAM: XR Abdomen, 1 View CLINICAL INDICATION: TECHNIQUE: Frontal supine view of the abdomen/pelvis. COMPARISON: No relevant prior studies available. FINDINGS: GASTROINTESTINAL TRACT: Unremarkable. No dilation. BONES/JOINTS: Unremarkable. No acute fracture. RAD/Abdomen Single View IMPRESSION: Nonobstructive bowel gas pattern. [facility]
== END | disposition home or self-care (01) ==
LOC: RAD 15:15
PROVIDERS: PCP Physician Assistant; Referring Provider Nurse Practitioner Acute Care; Visit Provider Nurse Practitioner Acute Care
DX: K59.00 Constipation, unspecified (principal)
CPT/HCPCS: 74018

== ENCOUNTER → 2025-01-24 | Outpatient (CLI) | payer BC, SELFPAY ==
--- NOTE | 2025-01-24 15:50 | RAD_ITS ---
PROCEDURE: ABDOMEN SINGLE VIEW REASON FOR EXAM: 59-year-old male, day 5 Sitz marker evaluation. TECHNIQUE: Single view abdomen. COMPARISON: Abdominal radiographs 01/22/2025. FINDINGS: No radiopaque Sitz markers on the visualized abdominal field. Surgical clips overlying the bilateral testes, likely surgical clips from prior vasectomy. Bowel gas pattern is normal. No evidence of bowel obstruction. No suspicious calcifications. There are degenerative changes of the spine. RAD/Abdomen Single View IMPRESSION: No visualized Sitz markers. Reading Location: [id number]
== END | disposition home or self-care (01) ==
LOC: RAD 15:43
PROVIDERS: PCP Physician Assistant; Referring Provider Nurse Practitioner Acute Care; Visit Provider Nurse Practitioner Acute Care
DX: K59.00 Constipation, unspecified (principal)
CPT/HCPCS: 74018

== ENCOUNTER 2025-08-07 05:35 | Day surgery (SDC) | payer BC, SELFPAY ==
[2025-08-07] VITALS (8 sets, daily range): BP systolic 93–120; BP diastolic 67–79; PULSE 62–69; RESP 16–18; TEMP 36.1–36.6; O2SAT 94–98; BMI 27.1
--- OUTSIDE RECORDS SUMMARY | 2025-08-07 05:38 | XMS RPT_ITS | CCD ---
Author Organization [facility] ion Partnership [facility] Care Team Providers Care Fire Inspector Name Role Phone Juan Carlos Lawrence Unavailable Unavailable Newbill, Juan Carlos Pro Unavailable Unavailable Tourlas, Pasquale Unavailable Unavailabl e Newbill, Juan Carlos Pro Unavailable Unavailable Newbill, Juan Carlos Pro Unavailable Unavailable Tourlas, Pasquale Unavailable Unavailabl e Tourlas, Pasquale Unavailable Unavailabl e Tourlas, Pasquale Unavailable Unavailabl e Tourlas, Pasquale Unavailable Unavailabl e Tourlas, Pasquale Unavailable Unavailabl e Tourlas, Pasquale Unavailable Unavailabl e Tourlas, Pasquale Unavailable Unavailabl e Tourlas, Pasquale Unavailable Unavailabl e Tourlas, Pasquale Unavailable Unavailabl e Tourlas, Pasquale Unavailable Unavailabl e Tourlas, Pasquale Unavailable Unavailabl e Tourlas, Pasquale Unavailable Unavailabl e Tourlas, Pasquale Unavailable Unavailabl e Tourlas, Pasquale Unavailable Unavailabl e Tourlas, Pasquale Unavailable Unavailabl e Ryan, Jamari Unavailable Unavailable Tourlas, Pasquale Unavailable Unavailabl e Ryan, Jamari Unavailable Unavailable Ryan, Jamari Unavailable Unavailable Tourlas, Pasquale Unavailable Unavailabl e Tourlas, Pasquale Unavailable Unavailabl e Tourlas, Pasquale Unavailable Unavailabl e Tourlas, Pasquale Unavailable Unavailabl e Rajinder Osei Unavailable Unavailable Unavailable Rajinder Osei Unavailable Unavail able Hay Felipe Unavailable Unavailable Pending Provider Unavailable Unavailable Unavailable Unavailable Pending, Provider Primary Care Unavailable Mallapareddi, Rajinder Gonzalez Attending Unavailab le Mallapareddi, Rajinder Gonzalez Referring Unavailab le Pending, Provider Primary Care Unavailable Mallapareddi, Rajinder Gonzalez Attending Unavailab le Mallapareddi, Rajinder Gonzalez Referring Unavailab le Mallapareddi MPH, Rajinder Gonzalez S Unavailable Farnaz CRENSHAW MPH, Rajinder Alfonso Primary Care Pro vider Farnaz, Dr. Rajinder Ponce Primary Care Unavailable Mallapareddi, Dr. Rajinder Ponce Attending Unavailable Mallapareddi, Dr. Rajinder Ponce Attending Unavailable Mallapareddi, Dr. Rajinder Ponce Primary Care Unavailable MALLAPAREDDI, RAJINDER Alfonso Primary Care Unavail able Farnaz CRENSHAW MPH, Rajinder Gonzalez S Unavailable Stentz PA-C, Sherwin Primary Care Provider Farnaz CRENSHAW MPH, Rajinder Gonzalez S Unavailable Stentz PA-C, Sherwin Primary Care Provider ANYI YODER Referring Unavailable STENTZ, SHERWIN Primary Care Unavailable MAGED KC Attending Unavailable ROHINI OLIVA Referring Unavailable MALLAPAREDDI, RAJINDER GONZALEZ S Primary Care Unavail able MAGED KC Attending Unavailable ROHINI OLIVA Referring Unavailable MALLAPAREDDI, RAJINDER Alfonso Primary Care Unavail able MALLAPAREDDI, RAJINDER NAG S Referring Unavail able STENTZ, SHERWIN Referring Unavailable STENTZ, SHERWIN Primary Care Unavailable Carlo CRENSHAW, Dr. Murrell Primary Care Provider Sergio RAMOS-CMala Attending Provider Stentz Sherwin TRACY Referring Provider Sergio ARGON TESTER-C, Mala Referring Provider Stentz PA, Sherwin Primary Care Provider Dr. Riky Perez DO Attending Provider Dr. Riky Perez DO Other Provider [phone] Dr. Handy Evangelista MD Referring Provider Farnaz CRENSHAW MPH, Rajinder Nag S Unavailable Sergio ARGON TESTER-C, Mala Attending Provider Stentz PA, Sherwin Primary Care Provider Sergio ARGON TESTER-C, Mala Referring Provider Stentz PA, Sherwin Referring Provider MALLJEF, RAJINDER NAG S Attending Unavail able MALLAPAREDDI, RAJINDER NAG S Primary Care Unavail able MALLAPAREDDI, RAJINDER NAG S Attending Unavail able MALLAPAREDDI, RAJINDER NAG S Primary Care Unavail able STENTZ, SHERWIN Attending Unavailable STENTZ, SHERWIN Primary Care Unavailable STENTZ, SHERWIN Attending Unavailable STENTZ, SHERWIN Primary Care Unavailable MURIEL MARTIN Attending Unavailable STENTZ, SHERWIN Primary Care Unavailable STENTZ, SHERWIN Attending Unavailable STENTZ, SHERWIN Referring Unavailable STENTZ, SHERWIN Primary Care Unavailable Friend, Riky Attending Unavailable Stentz, Sherwin Primary Care Unavailable Stentz, Sherwin Referring Unavailable Tourlas, Handy Referring Unavailable Stentz, Sherwin Primary Care Unavailable Sergio, Mala Attending Unavailable Friend, Riky Consulting Unavailable Friend, Riky Attending Unavailable Stentz, Sherwin Primary Care Unavailable Stentz, Sherwin Referring Unavailable Stentz, Sherwin Primary Care Unavailable Sergio Mala Referring Unavailable Sergio Mala Attending Unavailable Stentz, Sherwin Primary Care Unavailable Sergio, Mala Referring Unavailable Sergio, Mala Attending Unavailable Friend, Riky Attending Unavailable Friend, Riky Referring Unavailable Stentz, Sherwin Primary Care Unavailable Stentz, Sherwin Primary Care Unavailable Friend, Riky Attending Unavailable Sergio, Mala Attending Unavailable Stentz, Sherwin Referring Unavailable Stentz, Sherwin Primary Care Unavailable Tourlas, Handy Primary Care Unavailable Sergio, Mala Attending Unavailable Stentz, Sherwin Referring Unavailable Sergio, Mala Referring Unavailable Sergio, Mala Attending Unavailable Stentz, Sherwin Primary Care Unavailable Sergio, Mala Attending Unavailable Tourlas, Handy Primary Care Unavailable Sergio, Mala Referring Unavailable Tourlas, Handy Primary Care Unavailable Mala Hill Attending Unavailable Mala Hill Referring Unavailable Medications Current Medications Medication Drug Class(es) Dates Sig (Normalized) Sig (Original) busPIRone hydrochloride 7.5 mg oral tablet (4 sources) Start: 04-10-2025 End: 08-11-2025 take 1 tablet by mouth twice daily in the evening busPIRone (Buspar) 7.5 mg tablet Indications: Anxiety , Depression, unspecified depression type Take 1 tablet (7.5 mg) by mouth 2 times a day. 180 tablet 05/13/2025 1:00 PM EDT 05/02/2025 08/11/2025 Active Cholestyramine-Aspa rtame (Cholestyramine Light) 4 gram powder in packet (2 sources) Start: 02-01-2025 Cholestyramine-As partame (Cholestyramine Light) 4 gram powder in packet Active 4 g PO TWICE A DAY 60 February 01, 2025 12:00am administer w/meal; avoid other meds within 1hr before or 4-6hr after dose DULoxetine 20 mg delayed release oral capsule (4 sources) Serotonin and Norepinephrine Reuptake Inhibitor Start: 05-07-2025 take 1 capsule by mouth twice daily Duloxetine (Cymbalta) 20 mg capsule,delayed release(DR/EC) Active 20 mg PO TWICE A DAY May 07, 2025 12:00am Start: 04-03-2025 End: 08-02-2025 take 1 capsule by mouth once daily in the evening DULoxetine (Cymbalta) [address] capsule Indications: Depression, unspecified depression type Take 1 capsule (60 mg) by mouth once daily. 90 capsule 05/04/2025 5:18 PM EDT 05/02/2025 08/02/2025 Active hydroCHLOROthiazide 12.5 mg / losartan potassium 50 mg oral tablet (3 sources) Thiazide Diuretic, Angiotensin 2 Receptor Raul Start: 05-17-2025 End: 05-17-2026 take 1 tablet by mouth once daily losartan-hydrochlorothiazide (Hyzaar) 50-12.5 mg tablet Indications: Heartburn Take 1 tablet by mouth once daily. 30 tablet 11 05/17/2025 05/17/2026 Active Start: 04-11-2025 End: 06-11-2025 take 1 tablet by mouth once daily losartan-hydrochlorothiazide (Hyzaar) 100-12.5 mg tablet Take 1 tablet by mouth once daily. 04/11/2025 05/02/2025 Discontinued (Med List Cleanup) End: 05-17-2025 take 0.5 tablet by mouth once daily losartan-hydrochlorothiazide (Hyzaar) 10 0-25 mg tablet Take 0.5 tablets by mouth once daily. 05/17/2025 Discontinued (Therapy completed) loperamide hydrochloride 2 mg oral capsule (6 sources) Opioid Agonist Start: 05-07-2025 take 1 capsule by mouth every six hours as needed Loperamide 2 mg capsule Active 2 mg PO EVERY 6 HOURS as needed May 07, 2025 12:00am Start: 01-04-2025 End: 02-01-2025 Loperamide (Imodium A-D) 2 m g capsule Discontinued 4 mg PO DAILY January 04, 2025 1:00am February 01, 2025 10:27am losartan potassium 100 mg oral tablet (20 sources) Angiotensin 2 Receptor Raul Start: 05-19-2024 End: 05-19-2025 take 1 tablet by mouth once daily Losartan 100 mg tablet Active 100 mg PO daily October 11, 2024 1:00am Start: 07-09-2023 End: 02-14-2025 take 1 tablet by mouth once daily losartan (Cozaar) 50 mg tablet Indications: Primary hypertension Take 1 tablet (50 mg) by mouth once daily. 90 tablet 3 02/15/2024 05/19/2024 Discontinued (Reorder) Start: 05-28-2023 End: 05-27-2024 take 1 tablet by mouth once daily losartan (Cozaar) 25 mg tablet Indications: Primary hypertension Take 1 tablet (25 mg) by mouth once daily. 30 tablet 11 05/28/2023 07/09/2023 Discontinued (Reorder) pantoprazole 20 mg delayed release oral tablet (10 sources) Proton Pump Inhibitor Start: 05-07-2025 take 1 tablet by mouth once daily Pantoprazole 20 mg tablet,delayed release (DR/EC) Active 20 mg PO daily May 07, 2025 12:00am Start: 09-28-2024 End: 08-02-2025 take 1 tablet by mouth once daily in the evening pantoprazole (ProtoNix) 40 mg EC tablet Indications: Heartburn Take 1 tablet (40 mg) by mouth once daily. Do not crush, chew, or split. 90 tablet 05/04/2025 5:18 PM EDT 05/02/2025 08/02/2025 Active predniSONE 10 mg oral tablet (1 source) Start: 01-06-2024 End: 01-12-2024 take 6 tablets by mouth once daily, then take 5 tablets by mouth once daily, then take 4 tablets by mouth once daily, then take 3 tablets by mouth once daily, then take 2 tablets by mouth once daily, then take 1 tablet by mouth once daily predniSONE (Deltasone) 10 mg tablet Indications: Low back strain, initial encounter Take 6 tablets (60 mg) by mouth once daily for 1 day, THEN 5 tablets (50 mg) once daily for 1 day, THEN 4 tablets (40 mg) once daily for 1 day, THEN 3 tablets (30 mg) once daily for 1 day, THEN 2 tablets (20 mg) once daily for 1 day, THEN 1 tablet (10 mg) once daily for 1 day. 21 tablet 0 01/06/2024 01/12/2024 Active traZODone hydrochloride 100 mg oral tablet (4 sources) Serotonin Reuptake Inhibitor Start: 05-07-2025 take 1 tablet by mouth once daily Trazodone 100 mg tablet Active 100 mg PO daily May 07, 2025 12:00am Start: 05-02-2025 End: 08-11-2025 take 0.5 tablet by mouth once daily at bedtime traZODone (Desyrel) 150 mg tablet Indications: Insomnia, unspecified type Take 0.5 tablets (75 mg) by mouth once daily at bedtime. 45 tablet 05/13/2025 1:00 PM EDT 05/02/2025 08/11/2025 Active Start: 04-10-2025 End: 05-02-2025 take 1 tablet by mouth once daily at bedtime traZODone (Desyrel) 150 mg tablet Take 1 tablet (150 mg) by mouth once daily at bedtime. 04/10/2025 05/02/2025 Discontinued (Reorder) Voquezna 20 mg tablet (2 sources) Start: 04-21-2025 Voquezna 20 mg tablet 20 mg. 04/21/2025 Active Completed/Discontinued Medications Medication Drug Class(es) Dates Sig (Normalized) Sig (Original) amLODIPine 10 mg oral tablet (20 sources) Dihydropyridine Calcium Channel Raul Start: 04-17-2025 End: 05-02-2025 take 1 tablet by mouth once daily amLODIPine (Norvasc) 10 mg tablet Take 1 tablet (10 mg) by mouth once daily. 04/17/2025 05/02/2025 Discontinued (Med List Cleanup) Start: 11-16-2023 End: 02-14-2025 take 1 tablet by mouth once daily amLODIPine (Norvasc) 10 mg tablet Indications: Primary hypertension Take 1 tablet (10 mg) by mouth once daily. 90 tablet 3 02/15/2024 05/19/2024 Discontinued (Reorder) Start: 05-28-2023 End: 05-19-2025 take 1 tablet by mouth once daily Amlodipine 5 mg tablet Active 5 mg PO daily October 11, 2024 1:00am amoxicillin 500 mg oral capsule (1 source) Penicillin-class Antibacterial Start: 05-11-2024 End: 05-19-2024 amoxicillin (Amoxil) 500 mg capsule TAKE 4 CAPSULES INITIALLY, THEN 1 CAPSULE EVERY 8 HOURS UNTIL GONE 28 capsule 05/11/2024 05/19/2024 Discontinued (Therapy completed) baclofen 10 mg oral tablet (3 sources) gamma-Aminobutyric Acid-ergic Agonist Start: 07-09-2023 End: 11-16-2023 take 1 tablet by mouth three times daily as needed for muscle spasms baclofen (Lioresal) 10 mg tablet Indications: Muscle spasm Take 1 tablet (10 mg) by mouth 3 times a day as needed for muscle spasms. 45 tablet 1 07/09/2023 11/16/2023 Discontinued (Therapy completed) cetirizine hydrochloride 10 mg oral tablet (3 sources) Histamine-1 Receptor Antagonist Start: 10-02-2019 take 1 tablet by mouth at bedtime Cetirizine HCl - 10 MG Oral Tablet TAKE 1 TABLET AT BEDTIME. Quantity: 30 Refills: 1 Pasquale Evangelista Start : 02-Oct-2019 Active cholestyramine light (Prevalite) 4 gram packet (1 source) Start: 02-01-2025 End: 05-02-2025 cholestyramine light (Prevalite) 4 gram packet Mix 1 packet (4 g) and take twice a day; administer w/meal; avoid other meds within 1hr before or 4-6hr after dose 60 each 3 02/05/2025 2:58 PM EDT 02/01/2025 05/02/2025 Discontinued (Med List Cleanup) sugar-free cholestyramine resin 4000 mg powder for oral suspension (1 source) Bile Acid Sequestrant Start: 02-01-2025 End: 05-07-2025 Cholestyramine-Aspa rtame (Cholestyramine Light) 4 gram powder in packet Discontinued 4 g PO TWICE A DAY 60 February 01, 2025 12:00am May 07, 2025 3:12pm administer w/meal; avoid other meds within 1hr before or 4-6hr after dose cloNIDine hydrochloride 0.1 mg oral tablet (1 source) Central alpha-2 Adrenergic Agonist Start: 03-05-2025 End: 05-02-2025 take 1 tablet by mouth three times daily in the evening cloNIDine (Catapres) 0.1 mg tablet Take 1 tablet 3 times a day by oral route. 6 tablet 03/05/2025 4:39 PM EDT 03/05/2025 05/02/2025 Discontinued (Med List Cleanup) cyclobenzaprine hydrochloride 10 mg oral tablet (2 sources) Muscle Relaxant Start: 01-06-2024 End: 02-16-2024 take 1 tablet by mouth three times daily as needed for muscle spasms cyclobenzaprine (Flexeril) 10 mg tablet Indications: Low back strain, initial encounter Take 1 tablet (10 mg) by mouth 3 times a day as needed for muscle spasms. 30 tablet 0 01/06/2024 02/16/2024 Discontinued (Therapy completed) fluticasone propionate 0.05 mg/actuat metered dose nasal spray (3 sources) Corticosteroid Start: 10-02-2019 take 1 spray(s) nasal route twice daily Fluticasone Propionate 50 MCG/ACT Nasal Suspension 1 SPRAY IN EACH NOSTRIL TWICE DAILY FOR 14 DAYS Quantity: 1 Refills: 0 Pasquale Evangelista Start : 02-Oct-2019 Active 16 GM Bottle hydrocortisone acetate 25 mg rectal suppository (2 sources) Corticosteroid Start: 01-18-2025 End: 05-02-2025 hydrocortisone (Anusol-HC) 25 mg suppository Insert 1 suppository (25 mg) rectally daily 7 suppository 01/19/2025 2:54 PM EST 01/18/2025 05/02/2025 Discontinued (Med List Cleanup) Hydrocortisone Acetate (Anusol-Hc) 25 mg suppository (3 sources) Start: 01-18-2025 End: 05-07-2025 Hydrocortisone Acetate (Anusol-Hc) 25 mg suppository Discontinued 25 mg RC daily January 18, 2025 1:00am May 07, 2025 3:13pm Start: 01-18-2025 Hydrocortisone Acetate (Anusol-Hc) 25 mg suppository Active 25 mg RC daily January 18, 2025 1:00am hydrOXYzine pamoate 50 mg oral capsule (1 source) Antihistamine Start: 03-06-2025 End: 05-02-2025 hydrOXYzine pamoate (Vistaril) 50 mg capsule Take 1 capsule (50 mg) by mouth. 03/06/2025 05/02/2025 Discontinued (Med List Cleanup) LORazepam 1 mg oral tablet (1 source) Benzodiazepine Start: 03-05-2025 End: 05-02-2025 take 1 tablet by mouth three times daily in the evening LORazepam (Ativan) 1 mg tablet Take 1 tablet 3 times a day by oral route. 6 tablet 03/05/2025 4:39 PM EDT 03/05/2025 05/02/2025 Discontinued (Med List Cleanup) melatonin 10 mg oral capsule (6 sources) End: 11-16-2023 melatonin 10 mg capsule Take 1 capsule (10 mg) by mouth as needed at bedtime for sleep. 0 11/16/2023 Discontinued (Therapy completed) Melatonin CAPS Q uantity: 0 Refills: 0 Ordered: 21-Apr-2022 DO Active meloxicam 7.5 mg oral tablet (8 sources) Nonsteroidal Anti-inflammatory Drug Start: 09-28-2024 End: 11-27-2024 take 1 tablet by mouth twice daily as needed for pain Meloxicam 7.5 mg tablet Discontinued 7.5 mg PO TWICE A DAY as needed for pain (scale score 1-3) October 11, 2024 1:00am October 16, 2024 4:36pm take 1 tablet by trevon once daily as needed for pain Meloxicam 15 MG Oral Tablet TAKE 1 TABLE T Daily PRN low back pain take with food and 8 oz of water Quantity: 30 Refills: 1 Pasquale Evangelista Active naltrexone hydrochloride 50 mg oral tablet (1 source) Opioid Antagonist Start: 03-05-2025 End: 05-02-2025 take 1 tablet by mouth once daily in the evening naltrexone (Depade) 50 mg tablet Take 1 tablet every day by oral route. 2 tablet 03/05/2025 4:39 PM EDT 03/05/2025 05/02/2025 Discontinued (Med List Cleanup) No Reported Medications (13 sources) No Reported Medications Quantity: 0 Refills: 0 Ordered: 07-Jan-2021 DO Active omeprazole 20 mg delayed release oral tablet (6 sources) Proton Pump Inhibitor End: 02-16-2024 take 1 tablet by mouth once daily before mealtime omeprazole OTC (PriLOSEC OTC) 20 mg EC tablet Take 1 tablet (20 mg) by mouth once daily in the morning. Take before meals. Do not crush, chew, or split. 0 02/16/2024 Discontinued (Therapy completed) perflutren lipid microspheres (Definity) injection 4 mL of dilution (1 source) Start: 11-23-2024 End: 11-23-2024 4 mL of dilution, intravenous, Once in imaging, Starting on Shira 11/23/24 at 1043, For 1 dose, Contrast - for use by imaging provider only. Prior to administration, Definity product must be activated. First, bring vial to room temperature. Then, shake vial for 45 seconds. Do not use if the 45 second activation cycle has not been completed. Following activation, the product will appear as a milky white suspension and may be used immediately. If not used within 5 minutes of activation, re-suspend by inverting and shaking the vial for 10 seconds. Discard unused product. Administration: Dilute 1.3 mL of activated DEFINITY with 8.7 mL of normal saline in a 10 mL syringe. Inject 0.5 mL of diluted DEFINITY when notified the images/film are unclear to enhance view of Left Ventricular borders. Repeat 0.5 mL of DEFINITY until clear images are obtained, not to exceed 10 mLs. Once images are obtained or limit of medication is reached, flush line with 10 mL of Normal Saline. prazosin 1 mg oral capsule (1 source) alpha-Adrenergic Raul Start: 04-11-2025 End: 05-02-2025 prazosin (Minipress) 1 mg capsule Take 1 capsule (1 mg) by mouth. 04/11/2025 05/02/2025 Discontinued (Med List Cleanup) Vonoprazan (Voquezna) 20 mg tablet (3 sources) Start: 01-18-2025 End: 05-07-2025 take 1 tablet by mouth once daily in the morning Vonoprazan (Voquezna) 20 mg tablet Discontinued 20 mg PO daily January 18, 2025 1:00am May 07, 2025 3:34pm take one tablet daily in the morning with or without food Start: 01-18-2025 take 1 tablet by trevon th once daily in the morning Vonoprazan (Voquezna) 20 mg tablet Active 20 mg PO daily January 18, 2025 1:00am take one tablet daily in the morning with or without food NEGATED: Highlighted row has not occurred!No Current Medications (1 source) No Current Medic ations Problems Active Problems Problem Classification Problem Date Documented Da te Episodic/Chronic Administrative/social admission (8 sources) Follow-up status; Translations: [Alcohol abuse counseling and surveillance of alcoholic] Onset: 04-03-2024 05-28-2023 Episodic Alcohol-related disorders (8 sources) Alcohol abuse; Translations: [Alcohol abuse, uncomplicated] 10-16-2024 Chronic Anxiety disorders (4 sources) Anxiety; Translations: [Anxiety disorder, unspecified] Onset: 05-02-2025 05-02-2025 Chronic Deficiency and other anemia (2 sources) Anemia, unspecified; Translations: [Anemia, unspecified] Onset: 08-09-2024 Episodic Diabetes mellitus without complication (1 source) Abnormal glucose level; Translations: [Impaired fasting glucose] 07-09-2023 Episodic Esophageal disorders (7 sources) Esophagitis; Translations: [Esophagitis] 01-18-2025 Episodic Essential hypertension (20 sources) Essential hypertension; Translations: [Essential (primary) hypertension] Onset: 04-03-2024 05-28-2023 Chronic Fracture of lower limb (3 sources) Fracture of phalanx of foot; Translations: [Closed fracture of one or more phalanges of foot] Episodic Fracture of upper limb (20 sources) Closed fracture of middle phalanx of index finger; Translations: [Closed fracture of middle or proximal phalanx or phalanges of hand] Episodic Immunizations and screening for infectious disease (20 sources) Patient encounter status; Translations: [Other specified vaccination] 02-15-2024 Episodic Mood disorders (2 sources) Depressive disorder; Translations: [Depression, unspecified depression type] 05-02-2025 Chronic Mood disorders (2 sources) Mood disorders; Translations: [Depression, unspecified] Onset: 05-02-2025 Osteoarthritis (11 sources) Primary osteoarthritis, unspecified shoulder; Translations: [Arthropathy, unspecified, shoulder region] Onset: 11-14-2024 11-14-2024 Chronic Other circulatory disease (19 sources) Elevated blood-pressure reading without diagnosis of hypertension; Translations: [Elevated blood pressure reading without diagnosis of hypertension] Episodic Other connective tissue disease (16 sources) Pain in finger; Translations: [Pain in limb] Episodic Other connective tissue disease (3 sources) Foot pain; Translations: [Pain in limb] Episodic Other connective tissue disease (1 source) Spasm; Translations: [Other muscle spasm] 07-09-2023 Episodic Other gastrointestinal disorders (1 source) Irritable bowel syndrome without diarrhea; Translations: [Irritable bowel syndrome, unspecified] Onset: 11-28-2024 Chronic Other gastrointestinal disorders (8 sources) Diarrhea, unspecified; Translations: [Diarrhea, unspecified] Onset: 07-10-2024 Episodic Other gastrointestinal disorders (18 sources) Diarrhea; Translations: [Diarrhea, unspecified] 09-28-2024 Episodic Other gastrointestinal disorders (10 sources) Heartburn; Translations: [Heartburn] Onset: 05-17-2025 09-28-2024 Episodic Other gastrointestinal disorders (9 sources) Urgent desire for stool; Translations: [Fecal urgency] 10-16-2024 Episodic Other gastrointestinal disorders (6 sources) Constipation; Translations: [Constipation, unspecified] 01-18-2025 Episodic Other gastrointestinal disorders (2 sources) Incontinence of feces; Translations: [Full incontinence of feces] 05-07-2025 Episodic Other gastrointestinal disorders (1 source) Fecal urgency; Translations: [Fecal urgency] Onset: 05-07-2025 Episodic Other gastrointestinal disorders (1 source) Full incontinence of feces; Translations: [Full incontinence of feces] Onset: 05-07-2025 Episodic Other lower respiratory disease (4 sources) Shortness of breath; Translations: [Shortness of breath] Onset: 05-03-2023 Episodic Other lower respiratory disease (4 sources) Dyspnea on exertion; Translations: [Other forms of dyspnea] 11-14-2024 Episodic Other nervous system disorders (2 sources) Other chronic pain; Translations: [Other chronic pain] Onset: 02-14-2024 Chronic Other nervous system disorders (2 sources) Chronic low back pain; Translations: [Other chronic pain] Onset: 02-14-2024 02-14-2024 Chronic Other non-traumatic joint disorders (19 sources) Shoulder pain; Translations: [Pain in joint, shoulder region] Episodic Other non-traumatic joint disorders (1 source) Hip pain; Translations: [Pain in left hip] 09-28-2024 Episodic Other upper respiratory infections (20 sources) Sore throat symptom; Translations: [Posterior rhinorrhea] Episodic Residual codes; unclassified (2 sources) Finding of neck region; Translations: [Other general symptoms and signs] 11-16-2023 Episodic Residual codes; unclassified (2 sources) Insomnia; Translations: [Insomnia, unspecified] 05-02-2025 Episodic Residual codes; unclassified (2 sources) Insomnia, unspecified; Translations: [Insomnia, unspecified] Onset: 05-02-2025 Episodic Spondylosis; intervertebral disc disorders; other back problems (20 sources) Lumbar spondylosis; Translations: [Lumbosacral spondylosis without myelopathy] Onset: 02-14-2024 Chronic Sprains and strains (1 source) Low back strain; Translations: [Strain of muscle, fascia and tendon of lower back, initial encounter] 01-06-2024 Episodic Substance-related disorders (4 sources) Nicotine dependence; Translations: [Nicotine dependence, unspecified, uncomplicated] Onset: 01-27-2025 01-27-2025 Chronic Unclassified (1 source) Esophagitis, unspecified without bleeding; Translations: [Esophagitis, unspecified without bleeding] Onset: 05-07-2025 Past or Other Problems Problem Classification Problem Date Documented Da te Episodic/Chronic Abdominal pain (20 sources) Left lower quadrant pain; Translations: [Left lower quadrant pain] Onset: 07-10-2024 09-28-2024 Episodic Other gastrointestinal disorders (6 sources) Intra-abdominal and pelvic swelling, mass and lump, unspecified site; Translations: [Intra-abdominal and pelvic swelling, mass and lump, unspecified site] Onset: 07-10-2024 Episodic Other gastrointestinal disorders (2 sources) Swollen abdomen; Translations: [Intra-abdominal and pelvic swelling, mass and lump, unspecified site] 07-10-2024 Episodic Other gastrointestinal disorders (2 sources) Heartburn; Translations: [Heartburn] Onset: 01-17-2025 Episodic Other gastrointestinal disorders (1 source) Constipation, unspecified; Translations: [Constipation, unspecified] Onset: 02-05-2025 Episodic Other lower respiratory disease (4 sources) Other forms of dyspnea; Translations: [Other forms of dyspnea] Onset: 11-14-2024 Episodic Other non-traumatic joint disorders (2 sources) Pain in left hip; Translations: [Pain in left hip] Onset: 09-28-2024 Episodic Other screening for suspected conditions (not mental disorders or infectious disease) (10 sources) Encounter for screening for malignant neoplasm of prostate; Translations: [Encounter for screening for lipoid disorders] Onset: 04-03-2024 Episodic Spondylosis; intervertebral disc disorders; other back problems (20 sources) Chronic low back pain; Translations: [Lumbago] Onset: 02-14-2024 09-24-2021 Episodic Comment on above: BACK PAIN Unclassified (16 sources) Onset: 04-30-2023 Resolved: 05-02-2025 04-30-2023 NEGATED: Highlighted row has not occurred!Residual codes; unclassified (2 sources) Disease Episodic Results Test Name Value Interpretation Reference Range Facility CBC (INCLUDES DIFF/PLT)on Basophils (Bld) [#/Vol] 0.062 10*3/uL Normal 0-200 [facility] Comment on above: Performed By: #### 6 144, [id number], [id number] #### [facility] [address] [place] [address], [address] [place] [phone] Principal Architectural Firm: Damien Greer MD Basophils/100 WBC (Bld) 1.0 % Normal [facility] Comment on above: Performed By: #### 6 399, 94243, 35114 #### [facility] of [address], [address] [place] [address] Principal Architectural Firm: Damien Greer MD Eosinophils (Bld) [#/Vol] 0.26 10*3/uL Normal 15-500 [facility] Comment on above: Performed By: #### 6 399, , #### [facility] of [address], [address] [place] [address] Principal Architectural Firm: Damien Greer MD Eosinophils/100 WBC (Bld) 4.2 % Normal [facility] Comment on above: Performed By: #### 6 399, , #### [facility] of [place] [address] Principal Architectural Firm: Damien Greer MD Erythrocyte distribution width (RBC) [Ratio] 11.6 % Normal 11.0-15.0 [facility] Comment on above: Performed By: #### 6 399, , #### [facility] of [address], [address] [place] [address] Principal Architectural Firm: Damien Greer MD Hematocrit (Bld) [Volume fraction] 43.5 % Normal 38.5-50.0 [facility] Comment on above: Performed By: #### 6 399, , #### [facility] of [place] [address] Principal Architectural Firm: Damien Greer MD Hemoglobin (Bld) [Mass/Vol] 14.0 g/dL Normal 13.2-17.1 [facility] Comment on above: Performed By: #### 6 399, , #### [facility] of [place] [address] Principal Architectural Firm: Damien Greer MD Lymphocytes (Bld) [#/Vol] 1.841 10*3/uL Normal 850-3900 [facility] Comment on above: Performed By: #### 6 399, , #### [facility] of [address], [address] [place] [address] Principal Architectural Firm: Damien Greer MD Lymphocytes/100 WBC (Bld) 29.7 % Normal [facility] Comment on above: Performed By: #### 6 399, , #### [facility] [place] [address] Principal Architectural Firm: Damien Greer MD MCH (RBC) [Entitic mass] 30.8 pg Normal 27.0-33.0 [facility] Comment on above: Performed By: #### 6 399, , #### [facility] of [place] [address] Principal Architectural Firm: Damien Greer MD MCHC (RBC) [Mass/Vol] 32.2 g/dL Normal 32.0-36.[address] [facility] Comment on above: Result Comment: For adults, a slight decrease in the calculated MCHC value (in the range of 30 to 32 g/dL) is most likely not clinically significant; however, it should be interpreted with caution in correlation with other red cell parameters and the patient's clinical condition. Performed By: #### 6 399, , #### [facility] [place] [address] Principal Architectural Firm: Damien Greer MD MCV (RBC) [Entitic vol] 95.6 fL Normal 80.0-100.0 [facility] Comment on above: Performed By: #### 6 399, , #### [facility] of [place] [address] Principal Architectural Firm: Damien Greer MD Monocytes (Bld) [#/Vol] 0.546 10*3/uL Normal 200-950 [facility] Comment on above: Performed By: #### 6 399, , #### [facility] of [place] [address] Principal Architectural Firm: Damien Greer MD Monocytes/100 WBC (Bld) 8.8 % Normal [facility] Comment on above: Performed By: #### 6 399, , #### [facility] of [address], [address] [place] [address] Principal Architectural Firm: Damien Greer MD Neutrophils (Bld) [#/Vol] 3.491 10*3/uL Normal 0037-4226 [facility] Comment on above: Performed By: #### 6 399, , #### [facility] of [address], [address] [place] [address] Principal Architectural Firm: Damien Greer MD Neutrophils/100 WBC (Bld) 56.3 % Normal [facility] Comment on above: Performed By: #### 6 399, , #### [facility] of [place] [address] Principal Architectural Firm: Damien Greer MD Platelet mean volume (Bld) [Entitic vol] 10.4 fL Normal 7.5-12.5 [facility] Comment on above: Performed By: #### 6 399, , #### [facility] of [address], [address] [place] [address] Principal Architectural Firm: Damien Greer MD Platelets (Bld) [#/Vol] 395 10*3/uL Normal 140-400 [facility] Comment on above: Performed By: #### 6 399, , #### [facility] of [place] [address] Principal Architectural Firm: Damien Greer MD RBC (Bld) [#/Vol] 4.55 10*6/uL Normal 4.20-5.80 [facility] Comment on above: Performed By: #### 6 399, , #### [facility] of [place] [address] Principal Architectural Firm: Damien Greer MD WBC (Bld) [#/Vol] 6.2 10*3/uL Normal 3.8-10.8 [facility] Comment on above: Performed By: #### 6 399, 45503, 04495 #### [facility] [address], [address] [place] [address] Principal Architectural Firm: Damien Greer MD COMPREHENSIVE METABOLIC PANE L W/ANION GAPon 05-18-2025 Albumin [Mass/Vol] 4.4 g/dL Normal 3.6-5.1 [facility] Comment on above: Order Comment: FASTI NG: NO Performed By: #### 6 399, 90012, 36774 #### [facility] [address], [address] [place] [address] Principal Architectural Firm: Damien Greer MD ALP [Catalytic activity/Vol] 70 U/L Normal 35-144 [facility] Comment on above: Order Comment: FASTI NG: NO Performed By: #### 6 399, 96530, 35067 #### [facility] [place] [address] Principal Architectural Firm: Damien Greer MD ALT [Catalytic activity/Vol] 16 U/L Normal 9-46 [facility] Comment on above: Order Comment: FASTI NG: NO Performed By: #### 6 399, 05376, 70393 #### [facility] [place] [address] Principal Architectural Firm: Damien Greer MD AST [Catalytic activity/Vol] 13 U/L Normal 10-35 [facility] Comment on above: Order Comment: FASTI NG: NO Performed By: #### 6 399, 01702, 44607 #### [facility] [place] [address] Principal Architectural Firm: Damien Greer MD Bilirubin [Mass/Vol] 0.7 mg/dL Normal 0.2-1.2 [facility] Comment on above: Order Comment: FASTI NG: NO Performed By: #### 6 399, 23145, 93311 #### [facility] [address], [address] [place] [address] Principal Architectural Firm: Damien Greer MD Calcium [Mass/Vol] 9.3 mg/dL Normal 8.6-10.3 [facility] Comment on above: Order Comment: FASTI NG: NO Performed By: #### 6 399, , 72788 #### [facility] [place] [address] Principal Architectural Firm: Damien Greer MD Chloride [Moles/Vol] 104 mmol/L Normal 98-110 [facility] Comment on above: Order Comment: FASTI NG: NO Performed By: #### 6 399, , #### [facility] [place] [address] Principal Architectural Firm: Damien Greer MD CO2 [Moles/Vol] 27 mmol/L Normal 20-32 [facility] Comment on above: Order Comment: FASTI NG: NO Performed By: #### 6 399, , #### [facility] [place] [address] Principal Architectural Firm: Damien Greer MD Creatinine [Mass/Vol] 1.09 mg/dL Normal 0.70-1.35 [facility] Comment on above: Order Comment: FASTI NG: NO Performed By: #### 6 399, , 15001 #### [facility] [place] [address] Principal Architectural Firm: Damien Greer MD ELECTROLYTE BALANCE 9 mmol/L (calc) Normal 7-17 [facility] Comment on above: Order Comment: FASTI NG: NO Performed By: #### 6 399, , 97981 #### [facility] [place] [address] Principal Architectural Firm: Damien Greer MD GFR/1.73 sq M.predicted among non-blacks MDRD (S/P/Bld) [Vol rate/Area] 77 mL/min/{1.73_m2} Normal > OR = 60 [facility] Comment on above: Order Comment: FASTI NG: NO Performed By: #### 6 399, 68523, 96567 #### [facility] of [place] [address] Principal Architectural Firm: Damien Greer MD Glucose [Mass/Vol] 88 mg/dL Normal 65-139 [facility] Comment on above: Order Comment: FASTI NG: NO Result Comment: Non-fasting reference interval Performed By: #### 6 399, 56966, 03992 #### [facility] [place] [address] Principal Architectural Firm: Damien Greer MD Potassium [Moles/Vol] 4.4 mmol/L Normal 3.5-5.3 [facility] Comment on above: Order Comment: FASTI NG: NO Performed By: #### 6 399, 65009, 66807 #### [facility] [place] [address] Principal Architectural Firm: Damien Greer MD Protein [Mass/Vol] 6.6 g/dL Normal 6.1-8.1 [facility] Comment on above: Order Comment: FASTI NG: NO Performed By: #### 6 399, , 25041 #### [facility] [place] [address] Principal Architectural Firm: Damien Greer MD Sodium [Moles/Vol] 140 mmol/L Normal 135-146 [facility] Comment on above: Order Comment: FASTI NG: NO Performed By: #### 6 399, 00840, 97140 #### [facility] [place] [address] Principal Architectural Firm: Damien Greer MD Urea nitrogen [Mass/Vol] 14 mg/dL Normal 7-25 [facility] Comment on above: Order Comment: FASTI NG: NO Performed By: #### 6 399, 57159, 43537 #### [facility] [place] [address] Principal Architectural Firm: Damien Greer MD PSA, TOTAL, MONITORINGon PSA, TOTAL, MONITORING 0.25 ng/mL Normal < OR = 4.00 [facility] Comment on above: Result Comment: The total PSA value from this assay system is standardized against the WHO standard. The test result will be approximately 20% lower when compared to the equimolar-standardized total PSA ([employer]ene [employer]). Comparison of serial PSA results should be interpreted with this fact in mind. This test was performed using the Siemens chemiluminescent method. Values obtained from different assay methods cannot be used interchangeably. PSA levels, regardless of value, should not be interpreted as absolute evidence of the presence or absence of disease. Performed By: #### 6 399, 83050, 56728 #### [facility] [address], [address] [place] [phone] Principal Architectural Firm: Damien Greer MD TSH W/REFLEX TO FT4on 2024 TSH W/REFLEX TO FT4 0.99 mIU/L Normal 0.40-4.50 [facility] Comment on above: Performed By: #### 6 399, 29127, 12235 #### [facility] [address], [address] [place] [address] Principal Architectural Firm: Damien Greer MD Gastroenterology Visit Repor [facility] 05-07-2025 Gastroenterology Visit Report [facility] [address] [place] [address] OFFICE VISIT Date of Service: 05/07/25 MR#: [id number] Acct: [id number] Name: NORBERTO MULLINS Rep #: [id number] : 1965 Provider: TRAE vo Age/Sex: 60/M Location: [facility] Status: Signed Intake Vital Signs 01/05/25 13:39 05/07/25 15:19 Height 5 ft 11 in 5 ft 11 in Weight: 194 lb 4 oz BMI 27.1 BP 127/80 H Respiration 16 Pulse 82 Pulse Oximetry (%) 98 Oxygen Delivery Method room air Intake Visit Reasons: Test Result Chief Complaint: pain and diarrhea Bead Maker Required: No Accompanied by: Self Is patient in pain?: No Allergies No Known Allergies Allergy (Verified 01/05/25 13:38) Medications ???Medication ???Instructions ???Recorded ???Confirmed ???Type amlodipine 5 mg tablet 5 mg PO QDAY 10/11/24 05/07/25 His tory losartan 100 mg tablet 100 mg PO QDAY 10/11/24 05/07/25 H istory buspirone 7.5 mg tablet 7.5 mg PO BID 05/07/25 05/07/25 Hi story duloxetine 20 mg capsule,delayed 20 mg PO BID 05/07/25 05/07/25 His tory release (Cymbalta) loperamide 2 mg capsule 2 mg PO Q6H PRN 05/07/25 05/07/25 History pantoprazole 20 mg tablet,delayed 20 mg PO QDAY 05/07/25 05/07/25 H istory release trazodone 100 mg tablet 100 mg PO QDAY 05/07/25 05/07/25 H istory PFSH Medical History Wears glasses Wears dentures Alcohol use Marijuana use Open wound Bladder disease Arthritis Back pain History of GI bleed History of IBS Smoker Shortness of breath on exertion History of echocardiogram History of stress test Primary hypertension Pain of left hip Heartburn Diarrhea Surgical History History of nasal surgery History of tooth extraction History of colonoscopy History of appendectomy History of tonsillectomy and adenoidectomy History of foot surgery Social History Smoking Status: Current every day smoker tobacco type: cigarettes alcohol intake: current details: drinking about 15-20 1oz shots of alcohol nightly HPI HPI Chief Complaint: pain and diarrhea Details: NORBERTO MULLINS, is a 60 M who presents to the office today for OV 01/18/2025 59y/o male presents for follow-up post procedures. Colonoscopy and EGD were performed 01/05/2025. EGD revealed Grade B esophagitis, portal hypertensive gastropathy; biopsies negative for H. pylori and celiac sprue. The colonoscopy revealed TAs and it is recommended he repeat the colonoscopy in 3 years (December 2027). He reports only taking 30d of pantoprazole and discontinuing as this made no improvement in his symptoms. I have started him on Voquezna 20mg daily for treatment of esophagitis and will repeat EGD in 3 months to assess healing. He is drinking beer and 30 ounces of [place] daily and has no desire to cease alcohol consumption. He is continuing to experience fecal leakage and occasional BRBPR with BM. He denies any rectal pain. Rectal exam is revealing for internal hemorrhoid at 4 o'clock. I have provided him a prescription for Anusol suppositories. Patient Instructions: - Sitz Marker testing - Hold Imodium while you complete Sitz Marker Testing - Start Voquezna 20mg daily - samples provided and a prescription was sent to [facility] they will mail you refills - Anusol suppositories for treatment of hemorrhoids - Soap and water to wash bottom after a bowel movement - EGD in 3 months to assess healing of esophagitis - Alcohol cessation is encouraged - Smoking cessation recommended - https://www.cdc.gov/tobac co/about/how-to-quit.html - Follow-up in the office in 4 months - snf PPI or PCAB use at lowest dose possible to maintain symptom remission with chronic alcohol and tobacco use Fecal Calprotectin 10/25/2025 mildly elevated 75 (borderline) Fecal Elastase >800 - Started Voquezna - 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 - 5 day binge - last drink was 03/05 - he is not doing out patient or AA - today was 1st day back to work - lower abdominal discomfort, not really associated with a BM - pain is much less than what it was - still having some loose stools - he is taking Imodium 1-2x a day - since stopping alcohol stools have not decreased in frequency - he is having a BM every 2-3 hours, small stools and has urgency - still having leakage - previously took Cholestyramine 1pkt BID and showed no improvement - [facility] - he did like this place and would recommend it - no longer smoking marijuana ROS Const Constitutional: No fatigue, fever(s) or weight change ENT ENT: No difficulty swallowing Gastro GI: Positive for abdominal pain (more content not included)... Normal [facility] CT CARDIAC SCORING WO IV CON TRASTon 01-27-2025 CT CARDIAC SCORING WO IV CONTRAST Interpreted By: Hao Singleton, STUDY: CT CARDIAC SCORING WO IV CONTRAST; 01/27/2025 11:12 am INDICATION: Signs/Symptoms:NICOTINE DEPENDANT. COMPARISON: None. ACCESSION NUMBER(S): [id number] ORDERING CLINICIAN: ANYI YODER TECHNIQUE: Using prospective ECG gating, limited CT scan of the chest for evaluation of coronary arteries was performed without intravenous contrast. Coronary calcium scoring was performed according to the method of Agatston. FINDINGS: The score and distribution of calcium in the coronary arteries is as follows: LM: 0. LAD: 21.2. LCx: 10.8. RCA: 54.5. Total: 86.5. The visualized segments of the lungs are normally expanded. Mild diffuse bronchial wall thickening. Mild patchy bibasilar infiltrates and/or atelectasis. 3 mm nodule along left major fissure. Mild compression deformity midthoracic spine of indeterminate age. The visualized mid/lower ascending thoracic aorta measures 4.3 cm in diameter about the aortic root and 3.8 cm more superiorly. Some calcifications about the aortic root.. The heart is normal in size. No significant pericardial effusion is present. Partially calcified right hilar nodes likely sequela of granulomatous disease. Suspected fatty liver. Mild gynecomastia partially imaged. Mildly prominent nonspecific retrocrural nodes partially imaged up to 1 cm short axis. IMPRESSION: 1. Coronary artery calcium score of 86.5*. 2. 3 mm left lung nodule likely benign. 3. Aneurysmal prominence ascending thoracic aorta up to 4.3 cm about the aortic root. 4. Additional findings as above. *Coronary artery calcium scoring may be helpful in predicting the risk for future coronary heart disease events. According to the [employer] Foundation Clinical Expert Consensus Task Force, such testing provides important prognostic information in patients with more than one coronary heart disease risk factor. The coronary artery calcium score correlates with the annual risk of a non-fatal myocardial infarction or coronary heart disease . Coronary artery score Annual Risk 0-99 0.4% 100-399 1.3% >400 2.4% These three breakpoints correspond to lower, intermediate and high risk states for future coronary events. Such information should be used, along with appropriate clinical judgment, to make decisions regarding the intensity of risk factor management strategies to treat blood lipids and to modify other non-lipid coronary risk factors. Reference: [place] P et al. Circulation. 2007; 115:402-426 MACRO: Incidental Finding: A non-calcified pulmonary nodule/multiple non-calcified pulmonary nodules measuring less than 6 mm, likely benign. (-YCF-) Instructions: No further follow-up is required, however, if the patient has high risk factors for primary lung malignancy, follow-up noncontrast CT scan chest in 12 months may be obtained. (Al Barlow et al., Guidelines for management of incidental pulmonary nodules detected on CT images: From the Fleischner Society 2017, Radiology. 2017 Billy;284 (1):228-243.) [email or web address] Signed by: Hao Singleton 01/29/2025 8:19 AM Dictation workstation: [id number] [facility] Abdomen Single Viewon 2024 Abdomen Single View [facility] Services [address] [place] [address] Abdomen Single View MR#: [id number] Acct: [id number] Name: NORBERTO MULLINS Rep #: [id number] : 1965 M 59 From: Teresa Singh nd, MD PCP: ROSSANA Scales Status: REG CLI Study: Abdomen Single View Date of Exam: 01/24/25 Exam# [id number] Ordering Dr: Mala Hill PROCEDURE: ABDOMEN SINGLE VIEW REASON FOR EXAM: 59-year-old male, day 5 Sitz marker evaluation. TECHNIQUE: Single view abdomen. COMPARISON: Abdominal radiographs 01/22/2025. FINDINGS: No radiopaque Sitz markers on the visualized abdominal field. Surgical clips overlying the bilateral testes, likely surgical clips from prior vasectomy. Bowel gas pattern is normal. No evidence of bowel obstruction. No suspicious calcifications. There are degenerative changes of the spine. RAD/Abdomen Single View IMPRESSION: No visualized Sitz markers. Reading Location: [facility] CC: TRAE Hill; ROSSANA Scales Client Services Assistant: Signed Normal [facility] Abdomen Single Viewon 2024 Abdomen Single View [facility] [address] [place], [place] [id number] Abdomen Single View MR#: [id number] Acct: [id number] Name: NORBERTO MULLINS Rep #: [id number] : 1965 M 59 From: Adonis Culver MD PCP: ROSSANA Scales Status: REG CLI Study: Abdomen Single View Date of Exam: 01/22/25 Exam# [id number] Ordering Dr: Mala Hill EXAM: XR Abdomen, 1 View CLINICAL INDICATION: TECHNIQUE: Frontal supine view of the abdomen/pelvis. COMPARISON: No relevant prior studies available. FINDINGS: GASTROINTESTINAL TRACT: Unremarkable. No dilation. BONES/JOINTS: Unremarkable. No acute fracture. RAD/Abdomen Single View IMPRESSION: Nonobstructive bowel gas pattern. [facility] CC: TRAE Hill; ROSSANA Scales Client Services Assistant: Signed Normal [facility] Gastroenterology Visit Repor ton 01-18-2025 Gastroenterology Visit Report [facility] [address] [place] [address] OFFICE VISIT Date of Service: 01/18/25 MR#: [id number] Acct: [id number] Name: NORBERTO MULLINS Rep #: [id number] : 1965 Provider: TRAE vo Age/Sex: 59/M Location: [facility] Status: Signed Intake Vital Signs 01/05/25 13:39 Height 5 ft 11 in Intake Visit Reasons: Follow up Chief Complaint: pain and diarrhea Allergies No Known Allergies Allergy (Verified 01/05/25 13:38) [facility] Medical History Wears glasses Wears dentures Alcohol use Marijuana use Open wound Bladder disease Arthritis Back pain History of GI bleed History of IBS Smoker Shortness of breath on exertion History of echocardiogram History of stress test Primary hypertension Pain of left hip Heartburn Diarrhea Surgical History History of nasal surgery History of tooth extraction History of colonoscopy History of appendectomy History of tonsillectomy and adenoidectomy History of foot surgery Social History Smoking Status: Current every day smoker tobacco type: cigarettes alcohol intake: current details: drinking about 15-20 1oz shots of alcohol nightly HPI HPI Chief Complaint: pain and diarrhea Details: NORBERTO MULLINS, is a 59 M who presents to the office today for OV 10/17/2024 59y/o male presents for consultation with complaints of diarrhea, nausea and LLQ pain for several years, worse over the past 3-4 months. He started pantoprazole 40mg daily two weeks ago without improvement. LLQ Pain is 3/10 and can worsen with a BM. He also experiences occasional BRBPR with BM. He denies any improvement with Metamucil. Labs completed 08/09/2024 revealed mild anemia with normal Fe panel. Ferritin is elevated; however, this is likely secondary to large quantities of daily alcohol intake. CT completed 08/04/2024 revealed enlargement of liver lesions; likely cysts. He denies having any desire to cease alcohol intake and we have discussed risks including if he continues to consume daily alcohol. I have ordered labs, ABD US/Elastography and scheduled him for bidirectional endoscopies. He complains of worsening GONZALEZ and I advised he will require stress test with clearance prior to procedure. Patient Instructions: 1. Start Imodium, trail 1 tablet daily and increase as needed for diarrhea, do not exceed 4 tablets in 24 hours 2. Follow-up with PCP for c/o worsening GONZALEZ and Stress Test prior to Colonoscopy and EGD EGD: 01/05/2025 Neg. H. pylori and Celiac sprue - LA Grade B reflux esophagitis with no bleeding. - Portal hypertensive gastropathy. Biopsied. - Erythematous duodenopathy. Biopsied. COLON: 01/05/2025 - TAs - recall colon 3 years (December 2027) - Three 1 to 2 mm polyps in the transverse colon, at the hepatic flexure and in the cecum, removed with a hot snare. Resected and retrieved. - One 4 mm polyp in the rectum, removed with a jumbo cold forceps. Resected and retrieved. - Congested mucosa in the recto-sigmoid colon, in the sigmoid colon, at the splenic flexure and at the hepatic flexure. Biopsied. - Mild inflammation was found in the ileum secondary to ileitis. Biopsied. - Diverticulosis in the recto-sigmoid colon, in the sigmoid colon and in the descending colon. - Stool in the rectum, in the recto-sigmoid colon, in the sigmoid colon and in the cecum. - mucus clear on toilet paper - c/o fecal leakage after a BM - BRBPR intermittent with BM - he is still taking 1 Imodium every morning - fecal leakage - Imodium has made a good improvement - bourbon on the rocks - 10-30 shots a day before bed I just fill a solo cup - 3-4 beers when he gets home - if he does not drink he will not sleep - occasional chases with a pop - drinks 32 ounces of tea a day - water intake is poor - he only took pantoprazole for 30days and made no difference Exam GI Rectal Exam: hemorrhoids (internal at 4 o'clock) Assessment and Plan Assessment and Plan (1) Fecal urgency: Status: Acute (2) Alcohol abuse: Status: Acute (3) Diarrhea: Status: Acute (4) Constipation: Status: Acute (5) Esophagitis: Status: Acute Medications: New hydrocortisone acetate (Anusol-HC) 25 mg ID QDAY 7 ea 0RF vonoprazan (Voquezna) take one tablet daily in the morning with or without food 20 mg PO QDAY 30 tabs 3RF Plan 59y/o male presents for follow-up post procedures. Colonoscopy and EGD were performed 01/05/2025. EGD revealed Grade B esophagitis, portal hypertensive gastropathy; biopsies negative for H. pylori and celiac sprue. The colonoscopy revealed TAs and it is recommended he repeat the colonoscop (more content not included)... Normal [facility] Colonoscopy Reporton 025 Colonoscopy Report [facility] Medical Records Department [address] [place] [address] Colonoscopy Report MR#: [id number] Acct: [id number] Name: NORBERTO MULLINS Rep #: [id number] : 1965 59 From: Riky Friend DO PCP: ROSSANA Scales Status:REG [facility] Patient Name: Norberto Mullins Procedure Date: 01/05/2025 3:51 PM Date of : 1965 Age: 59 Procedure: Colonoscopy Indications: Chronic diarrhea Providers: DO David Jalloh MD: Rossana Scales Medicines: Monitored Anesthesia Care Patient Profile: This is a 59 year old male. Refer to note in patient chart for documentation of history and physical. Patient has symptoms of chronic epigastric abdominal pain, chronic heartburn and chronic nausea. Last Colonoscopy: none. The patient's first colonoscopy is today. Complications: No immediate complications. Procedure: Pre-Anesthesia Assessment: - Prior to the procedure, a History and Physical was performed, and patient medications and allergies were reviewed. The patient is competent. The risks and benefits of the procedure and the sedation options and risks were discussed with the patient. All questions were answered and informed consent was obtained. Patient identification and proposed procedure were verified by the physician in the pre-procedure area. Mental Status Examination: alert and oriented. Airway Examination: normal oropharyngeal airway and neck mobility. Respiratory Examination: clear to auscultation. CV Examination: normal. Prophylactic Antibiotics: The patient does not require prophylactic antibiotics. Prior Anticoagulants: The patient has taken no anticoagulant or antiplatelet agents except for NSAID medication. ASA Grade Assessment: II - A patient with mild systemic disease. After reviewing the risks and benefits, the patient was deemed in satisfactory condition to undergo the procedure. The anesthesia plan was to use monitored anesthesia care (MAC). Immediately prior to administration of medications, the patient was re-assessed for adequacy to receive sedatives. The heart rate, respiratory rate, oxygen saturations, blood pressure, adequacy of pulmonary ventilation, and response to care were monitored throughout the procedure. The physical status of the patient was re-assessed after the procedure. After I obtained informed consent, the scope was passed under direct vision. Throughout the procedure, the patient's blood pressure, pulse, and oxygen saturations were monitored continuously. The colonoscope was introduced through the anus and advanced to the terminal ileum. The colonoscopy was performed without difficulty. The patient tolerated the procedure well. The quality of the bowel preparation was adequate. The terminal ileum, ileocecal valve, appendiceal orifice, and rectum were photographed. Scope In: 3:53:10 PM Scope Withdrawal Time 0 hours 5 minutes 8 seconds Scope Out: 4:04:24 PM Total Procedure Duration Time 0 hours 11 minutes 14 seconds Findings: The perianal and digital rectal examinations were normal. Three sessile polyps were found in the transverse colon, hepatic flexure and cecum. The polyps were 1 to 2 mm in size. These polyps were removed with a hot snare. Resection and retrieval were complete. Verification of patient identification for the specimen was done by the physician using the patient's date. Estimated blood loss: none. A 4 mm polyp was found in the rectum. The polyp was sessile. The polyp was removed with a jumbo cold forceps. Resection and retrieval were complete. Verification of patient identification for the specimen was done. Estimated blood loss was minimal. An area of mildly congested mucosa was found in the recto-sigmoid colon, in the sigmoid colon, at the splenic flexure and at the hepatic flexure. Biopsies were taken with a cold forceps for histology. Verification of patient identification for the specimen was done. Estimated blood loss was minimal. Localized mild inflammation characterized by congestion (edema) was found in the terminal ileum. Biopsies were taken with a cold forceps for histology. Verification of patient identification for the specimen was done. Estimated blood loss was minimal. Multiple small-mouthed diverticula were found in the recto-sigmoid colon, sigmoid colon and descending colon. Stool was found in the rectum, in the recto-sigmoid colon, in the sigmoid colon and in the cecum. Impression: - Three 1 to 2 mm polyps in the transverse colon, at the hepatic flexure and in the cecum, removed with a hot snare. Resected and retrieved. - One 4 mm polyp in the rectum, removed with a jumbo cold forceps. Resected and retrieved. - Congested mucosa in the recto-sigmoid colon, in the sigmoid colon, at the splenic flexure and at the hepatic flexure. Bio (more content not included)... Normal [facility] EGD Reporton 01-05-2025 EGD Report [facility] Medical Records Department [address] [place] [address] EGD Report MR#: [id number] Acct: [id number] Name: NORBERTO MULLINS Rep #: [id number] : 1965 59 From: Riky Perez DO PCP: ROSSANA Scales Status:REG [facility] Patient Name: Norberto Mullins Procedure Date: 01/05/2025 3:34 PM Date of : 1965 Age: 59 Procedure: Upper GI endoscopy Indications: Epigastric abdominal pain, Suspected esophageal reflux Providers: Riky Perez DO Referring MD: Rossana Scales Medicines: Monitored Anesthesia Care Patient Profile: This is a 59 year old male. Refer to note in patient chart for documentation of history and physical. Patient has symptoms of chronic epigastric abdominal pain, chronic heartburn and chronic nausea. Complications: No immediate complications. Procedure: Pre-Anesthesia Assessment: - Prior to the procedure, a History and Physical was performed, and patient medications and allergies were reviewed. The patient is competent. The risks and benefits of the procedure and the sedation options and risks were discussed with the patient. All questions were answered and informed consent was obtained. Patient identification and proposed procedure were verified by the physician in the pre-procedure area. Mental Status Examination: alert and oriented. Airway Examination: normal oropharyngeal airway and neck mobility. Respiratory Examination: clear to auscultation. CV Examination: normal. Prophylactic Antibiotics: The patient does not require prophylactic antibiotics. Prior Anticoagulants: The patient has taken no anticoagulant or antiplatelet agents except for NSAID medication. ASA Grade Assessment: II - A patient with mild systemic disease. After reviewing the risks and benefits, the patient was deemed in satisfactory condition to undergo the procedure. The anesthesia plan was to use monitored anesthesia care (MAC). Immediately prior to administration of medications, the patient was re-assessed for adequacy to receive sedatives. The heart rate, respiratory rate, oxygen saturations, blood pressure, adequacy of pulmonary ventilation, and response to care were monitored throughout the procedure. The physical status of the patient was re-assessed after the procedure. After obtaining informed consent, the endoscope was passed under direct vision. Throughout the procedure, the patient's blood pressure, pulse, and oxygen saturations were monitored continuously. The colonoscope was introduced through the mouth, and advanced to the second part of duodenum. The upper GI endoscopy was accomplished without difficulty. The patient tolerated the procedure well. Scope In: 3:47:52 PM Scope Out: 3:51:36 PM Total Procedure Duration Time 0 hours 3 minutes 44 seconds Findings: LA Grade B (one or more mucosal breaks greater than 5 mm, not extending between the tops of two mucosal folds) esophagitis with no bleeding was found 36 to 39 cm from the incisors. Biopsies were taken with a cold forceps for histology. Verification of patient identification for the specimen was done. Estimated blood loss was minimal. Mild portal hypertensive gastropathy was found in the gastric body. Biopsies were taken with a cold forceps for histology. Biopsies were taken with a cold forceps for Helicobacter pylori testing. Verification of patient identification for the specimen was done. Estimated blood loss was minimal. Patchy mildly erythematous mucosa without active bleeding and with no stigmata of bleeding was found in the first portion of the duodenum. Biopsies were taken with a cold forceps for histology. Verification of patient identification for the specimen was done. Estimated blood loss was minimal. Impression: - LA Grade B reflux esophagitis with no bleeding. Biopsied. - Portal hypertensive gastropathy. Biopsied. - Erythematous duodenopathy. Biopsied. Recommendation: - Discharge patient to home. - Resume previous diet. - Continue present medications. - Await pathology results. Procedure Code(s): --- Professional --- 92399, Esophagogastroduodenoscop y, flexible, transoral; with biopsy, single or multiple CPT copyright 2021 [employer]. All rights reserved. The codes documented in this report are preliminary and upon first crusher review may be revised to meet current compliance requirements. Riky Perez DO 01/05/2025 4:10:01 PM This report has been signed electronically. Number of Addenda: 0 Note Initiated On: 01/05/2025 3:34 PM 01/05/25 1610 Date Riky Perez DO Cosigner Signature: Date (if indicated) CC: ROSSANA Scales; Riky Perez DO Date Dictated: 01/05/25 1534 Date Transcrib (more content not included)... Normal [facility] H Pylori (initial)on 025 H Pylori (initial) ----- Patient Age/Sex Location Account Attending Physician NORBERTO MULLINS 59/M EN [id number] Riky Perez DO Specimen: [id number] Received: 01/08/25 Status: FIDENCIO Galeas Num: [id number] Spec Type: IMMUNO Subm Dr: Riky Perez DO PHYSICIAN INSTITUTION [place] [address] SPECIMEN INFORMATION: Tissue Source: A- Gastric body biopsy Clinical Info: Abdominal pain and diarrhea Specimen Number: [id number] CPT code: 81432 METHODOLOGY: Deparaffinized sections of prefer/formalin-fixed tissue or PAP/DQ stained slides are incubated with monoclonal/polyclonal antibodies/oligonucleotid e probes. Localization is made via biotin free immunoperoxidase method. Appropriate controls are performed and reacted as expected. Results on target cell population are indicated in the following table: RESULTS: ANTIBODY / CLONE RESULT Block AH Pylori (polyclonal) negative These tests were developed and their performance characteristics determined by [facility]. They may not have been cleared or approved by the U.S. Food and Drug Administration. The FDA has determined that such clearance or approval is not necessary. The above immunohistochemical/dualI SH markers are ordered and reviewed by the Pathologist. INTERPRETATION: A. Gastric body, biopsy: Negative for Helicobacter pylori organisms. 01/09/2025 Signed (signature on file) Dr. Nilton Hough MD 01/09/25 1243 Normal [facility] Comment on above: Performed By: #### P H.PYLORI #### [facility] [address] [place], [address] MR/POSTOP.ANE 01-05-2025 MR/POSTOP[facility] Medical Records Department [address] [place] [address] Anesthesia Postop Eval I 01/05/251613 MR#: [id number] Acct: [id number] Name: NORBERTO MULLINS Rep #: [id number] : 1965 59 From: Vin Hernandez CRNA PCP: ROSSANA Scales Status:REG [facility] Y Race: C Location: [place] [address] Anesthesia: Postop Eval I Current Vital Signs Temperature: 97.7 F Pulse Rate: 88 Blood Pressure: 107/83 Respiratory Rate: 20 Pulse Ox: 97 Assessment Airway patent: Yes Spontaneous unlabored respirations: Yes nausea: No Vomiting: No Anesthesia Complication: No Fluid Hydration Crystalloid volume administer (ml): 40 Total IV fluid infused: 40 Progress Note Anesthesia document: Postop Eval 1 completed: Yes 01/05/251614 Date Vin Hernandez CRNA Cosigner Signature: Date CC: Signed [facility] [id number] 01-05-2025 MR/POSTOPAN2 [facility] Medical Records Department [address] [place] [address] Anesthesia Postop Eval II 01/05/252131 MR#: [id number] Acct: [id number] Name: NORBERTO MULLINS Rep #: [id number] : 1965 59 From: Max Storey MD PCP: ROSSANA Scales Status:DEP [facility] Y Race: C Location: EN Anesthesia Postop Eval I Sum Postop Eval Completion status Anesthesia document: Postop Eval 1 completed: Yes Anesthesia Postop Eval I Summary Anesthesia Postop Eval I Summary: Anesthesia Postop Eval I: Assessment Summary Airway patent Yes 01/05/25 16:14 TECHNICAL [email or web address] Spontaneous unlabored Yes 01/05/25 16:14 TECHNICAL [email or web address] respirations Mental status nausea No 01/05/25 16:14 TECHNICAL [email or web address] Vomiting No 01/05/25 16:14 TECHNICAL [email or web address] Anesthesia Postop Eval I: Fluid Summary Crystalloid volume administer 40 01/05/25 16:14 TECHNICAL [email or web address] (ml) Colloids volume administered ( ml) Blood Product volume administered (ml) Total IV fluid infused 40 01/05/25 16:14 TECHNICAL [email or web address] Anesthesia Postop Eval I: Summary Notes Anesthesia Complication No 01/05/25 16:14 TECHNICAL [email or web address] Anesthesia Complication Comment: Post-operative progress note Anesthesia: Postop Eval II Evaluation Mental status: Awake and Calm Pain Level: 0 nausea: No Vomiting: No Complications Anesthesia Complication: No 01/05/252133 Max Storey MD Cosigner Signature: Date CC: Signed Normal [facility] Special Stain Group Ion 12-23 Special Stain Group I ------- Patient Age/Sex Location Account Attending Physician NORBERTO MULLINS/M EN [id number] Riky Perez DO Specimen: [id number] Received: 01/05/25 Status: FIDENCIO Galeas Num: [id number] Spec Type: COLON BX Subm Dr: Riky Friend, DO HEADER OPERATION: Colonoscopy with polypectomy and biopsy, EGD with biopsy PRE-OP DIAGNOSIS: Abdominal pain and diarrhea TISSUE SUBMITTED: A- Gastric body biopsy, B- Duodenum biopsy, C- Distal esophagus biopsy,D- Transverse polyp biopsy, E- Hepatic flexure polyp, F- Cecum polyp, G- Terminal ileum biopsy, H- Random colon biopsy, I- Rectal polyp MICROSCOPIC DIAGNOSIS A. Gastric body, biopsy: Mild gastritis. See microscopic description and comment. B. Duodenum, biopsy: Fragments of duodenal mucosa, no pathologic diagnosis. C. Distal esophagus, biopsy: Fragments of gastroesophageal mucosa with chronic inflammation. Intestinal metaplasia (goblet cell metaplasia) is not identified. See comment. D. Transverse colon polyp, polypectomy: Tubular adenoma. E. Hepatic flexure polyp, polypectomy: Tubular adenoma. F. Cecal polyp, polypectomy: Fragments of tubular adenoma. Fragments of fecal material. G. Terminal ileum, biopsy: Fragments of small intestinal mucosa, no pathologic diagnosis. H. Colon, random biopsy: Fragments of colonic mucosa, no pathologic diagnosis. I. Rectal polyp, polypectomy: Hyperplastic polyp. SJ. 01/09/2025 COMMENT A. The results of immunohistochemistry for Helicobacter pylori will be reported separately ([id number]). C. Alcian blue/PAS stain with matched control is used in the evaluation of the specimen. MICROSCOPIC DESCRIPTION Slides are reviewed. A. The specimen shows fragments of gastric mucosa with chronic inflammatory cell infiltrates in the lamina propria consisting of lymphocytes and plasma cells, consistent with mild Patient Age/Sex Location Account Attending Physician NORBERTO MULLINS 59/M EN [id number] Perez, DO chronic gastritis. Focal mucosal congestion is also noted. GROSS DESCRIPTION A. Received in fixative is one container labeled with the patient's name and designated Gastric body biopsy. The specimen consists of multiple irregular fragments of light aguilera soft tissue that in aggregate measure 1 x 0.5 x 0.1 cm. The specimen is totally submitted in one cassette. B. Received in fixative is one container labeled with the patient's name and designated Duodenum biopsy. The specimen consists of multiple irregular fragments of light aguilera soft tissue that in aggregate measure 0.8 x 0.2 x 0.1 cm. The specimen is totally submitted in one cassette. C. Received in fixative is one container labeled with the patient's name and designated Distal esophagus biopsy. The specimen consists of two irregular fragments of light aguilera soft tissue that in aggregate measure 0.6 x 0.5 x 0.1 cm. The specimen is totally submitted in one cassette. D. Received in fixative is one container labeled with the patient's name and designated Transverse colon polyp. The specimen consists of a pink-red polyp measuring 0.6 x 0.6 x 0.5 cm. The presumed base is inked. The polyp is bisected and submitted entirely in one cassette. E. Received in fixative is one container labeled with the patient's name and designated Hepatic flexure polyp. The specimen consists of a pink-red polyp measuring 0.7 x 0.6 x 0.6 cm. The presumed base is inked. The polyp is bisected and submitted entirely in one cassette. F. Received in fixative is one container labeled with the patient's name and designated Cecum polyp. The specimen consists of multiple irregular fragments of light aguilera soft tissue mixed with fecal material that in aggregate measure 1.5 x 0.6 x 0.1 cm. The specimen is totally submitted in one cassette. G. Received in fixative is one container labeled with the patient's name and designated Terminal ileum biopsy. The specimen consists of two irregular fragments of light aguilera soft tissue that in aggregate measure 0.7 x 0.2 x 0.1 cm. The specimen is totally submitted in one cassette. H. Received in fixative is one container labeled with the patient's name and designated Random colon biopsy. The specimen consists of multiple irregular fragments of ligh (more content not included)... Normal [facility] Comment on above: Performed By: #### P SSI #### [facility] [address] [place], [place], [address] MR/PAT.ANEon 01-04-2025 MR/PAT.ADOLFO [facility] Medical Records Department [address] [place] [address] PAT - Anesthesia 01/04/25 1638 MR#: [id number] Acct: [id number] Name: NORBERTO MULLINS Rep #: [id number] : 1965 59 From: Max Storey MD PCP: ROSSANA Scales Status:PRE [facility] Y Race: C Location: EN Pre-Assessment Diagnosis/Proposed Procedure Planned Operative Procedure(s): EGD, Colonoscopy Anesthesia History Anesthesia History - lead housekeeper: Anesthesia History - lead housekeeper Hx Hospitalization No 01/04/25 15:16 Any Problems With Anesthesia No 01/04/25 15:16 Cholinesterase deficiency No 01/04/25 15:16 You/Your Family Experience No 01/04/25 15:16 fever (hyperthermia) with Relationship Recent Exposure to Contagious Disease Does patient have nerve No 01/04/25 15:16 stimulator Patient instructed to have device shut off --Does patient have Pacemaker or ICD? When Was Last Pacemaker Check QUESTION #4 FULL TEXT: You/Your Family Experience fever (hyperthermia) with Anesthesia Last Oral Intake Last Oral intake: Last Oral Intake NPO since Meds taken in AM with sips of water? Meds patient instructed to take am of surgery PONV PONV - lead housekeeper: PONV - lead housekeeper Female No 01/04/25 15:16 HX of Motion Sickness No 01/04/25 15:16 HX of N/V After Surgery No 01/04/25 15:16 Non-Smoker No 01/04/25 15:16 Duration of Surgery greater No 01/04/25 15:16 than 60 minutes Number of Risk Factors PONV Score Respiratory Assessment Respiratory Assessment - lead housekeeper: Respiratory Tract Infection Hx - lead housekeeper Hx Respiratory Tract Infection No 01/04/25 15:16 STOP Sleep Apnea STOP Sleep Apnea - lead housekeeper: STOP Sleep Apnea - lead housekeeper Hx Hypertension Yes: still high but lower 01/04/25 15:16 than it was Hx Sleep Apnea No 01/04/25 15:16 CPAP BIPAP Do you snore loudly (louder No 01/04/25 15:16 than talking or can be heard Do you often feel tired/ No 01/04/25 15:16 fatigued/ sleepy during daytime? Has anyone observed you stop No 01/04/25 15:16 breathing during sleep? STOP Results Negative 01/04/25 15:16 QUESTION #5 FULL TEXT : Do you snore loudly (louder than talking or can be heard through closed doors)? Tobacco Use History Tobacco Use History - lead housekeeper: Tobacco Use History - lead housekeeper Tobacco Use Smoking Status Current every day smoker 01/04/25 15:16 Hx Tobacco Use Yes 01/04/25 15:16 Years Smoking Packs Smoked per Day Smoking Cessation Date was within the last 15 years Hx Smoking Cessation Date Hx Smoking Cessation Counseling Hematologic Medial History Hematologic Hx - lead housekeeper: Hematologic Medical Hx - state inspector Hx of Blood Transfusion No 01/04/25 15:16 Hx of Transfusion in last 3 No 01/04/25 15:16 Months Date of Last Transfusion (if within last 3 months) Ever experience any problems No 01/04/25 15:16 with transfusion(s)? Specify any problems Hx of Preganancy in last 3 N/A 01/04/25 15:16 Months Nurse Filling Out Transfusion CHRIS 01/04/25 15:16 Questions: Date: 01/04/25 01/04/25 15:16 Time: 15:18 01/04/25 15:16 Patient unable to answer at this time (ie. confused, unrespo /Reproduction History /Reproductive History - lead housekeeper: /Reproductive Hx- lead housekeeper Hx Now Gestational Age (in weeks): EDC: Hx Hx Para Hx Section SAB PFSH Medical History (Updated 01/04/25 @ 15:27 by Allie Workman) Wears glasses Wears dentures Alcohol use Marijuana use Open wound Bladder disease Arthritis Back pain History of GI bleed History of IBS Smoker Shortness of breath on exertion History of echocardiogram History of stress test Primary hypertension Pain of left hip Heartburn Diarrhea Home Medications ???Medication ???Instructions ???Recorded ???Last Taken ???Type amlodipine 5 mg tablet 5 mg PO QDAY 10/11/24 Unknown Hist ory losartan 100 mg tablet 100 mg PO QDAY 10/11/24 Unknown Hi story pantoprazole 40 mg tablet,delayed 40 mg PO QDAY 10/11/24 Unknown Hi story release loperamide 2 mg capsule (Imodium 4 mg PO DAILY 01/04/25 Unknown His tory A-D) Allergy/AdvReac Type Severity Reaction Status Date / Time No Known Allergies Allergy Verified 01/04/25 12:25 Surgical History (Updated 01/04/25 @ 12:30 by Allie Workman) History of nasal surgery History of tooth extraction History of colonoscopy History of appendectomy History of tonsillectomy and adenoidectomy History of fo (more content not included)... Normal [facility] ECHOCARDIOGRAM STRESS TESTon 11-23-2024 [place] [address] ext-[phone], Exercise Stress Echo Patient Name: NORBERTO MULLINS Ordering Provider: [id number] SHERWIN BELLO Study Date: 11/23/2024 Reading Physician: Lilly Mijares MD MRN/PID: [id number] Supervising Physician: Lilly Mijares MD Fellow: Date of /Age: 5 1965 / 59 years Fellow: Gender: M Nurse: Wilmer Ruiz SHOT POLISHER AND INSPECTOR, [employer] Admit Date: 11/23/2024 Ironer Machine: Admission Status: Outpatient Division Roadmaster: GRAHAM Leyva RVT Height: 180.34 cm Technologist: Weight: 84.82 kg Additional Staff: BSA: 2.05 m2 BMI: 26.08 kg/m2 Patient Location: [facility] Stress Lab Study Type: ECHOCARDIOGRAM STRESS TEST Diagnosis/ICD: Other forms of dyspnea-R06.09 Indication: Dyspnea on Exertion CPT Codes: Stress Echo-59146; Stress Test Interpretation-61435; Stress Test Supervision-71708 Falls Risk: Low: Patient has low risk for sustaining a fall; environmental safety interventions in place. Study Details: Correct procedure and correct patient verified verbally and with ID Band checked. Patient History: Hypertension and dyspnea. Allergies: None. Smoker: Current. Diabetes: No. BMI: Overweight 25 - 30. Medications: Losartan and amlodipine. The patient did not take medications as prescribed. Patient Performance: The patient exercised to stage IV on a Alec protocol for 9 minutes and 54 seconds, achieving 11.50 METS. The peak heart rate achieved was 162 bpm, which was 102 % of the age predicted target heart rate of 159 bpm. The resting blood pressure was 159/84 mmHg with a heart rate of 80 bpm. The patient developed dyspnea during the stress exam. The symptoms resolved with rest 4 minutes into recovery. The blood pressure response was normal. The test was terminated due to: dyspnea and achieved age predicted maximum heart rate. Baseline ECG: Resting ECG showed normal sinus rhythm with normal tracing. Stress ECG: Stress ECG showed sinus tachycardia. Stress Stage Data: + +---+--- ---+-------+ HR Sys BP Romo BP + +---+--- ---+-------+ Baseline Resting 80 159 84 + +---+--- ---+-------+ Stage I 117 154 88 + +---+--- ---+-------+ Stage II 129 166 87 + +---+--- ---+-------+ Stage III 146 185 80 + +---+--- ---+-------+ Stage IV 160 + +---+--- ---+-------+ Recovery ECG: Recovery ECG showed normal sinus rhythm, with sinus tachycardia. The heart rate recovery was normal. + +---+------+- ------+ HR Sys BP Romo BP + +---+------+- ------+ Recovery I 137 + +---+------+- ------+ Recovery II 121 192 88 + +---+------+- ------+ Recovery IV 96 146 82 + +---+------+- ------+ Summary: 1. Baseline EKG shows normal sinus rhythm with no resting ST-T segment changes. 2. Patient exercised for 9 minutes 54 seconds achieving 11.5 METS. Exercise capacity is above average for age. 3. Heart rate response to exercise is normal. Blood pressure response to exercise is normal. 4. With exercise no ST-T segment changes suggestive of ischemia or sustained ventricular arrhythmias are seen. Exercise tress EKG is negative for ischemia. Occasional PVCs seen. 5. No regional wall motion abnormality seen with exercise on the stress echocardiogram. 6. Overall exercise stress echocardiogram is negative for ischemia. 7. Fung treadmill score is 10 (low risk). 8. Adequate level of stress achieved. Lilly Mijares MD Electronically signed on 11/23/2024 at 1:11:30 PM Final [facility] Stress cardiac echo study re portchelly 11-23-2024 [place] [address] [phone], Exercise Stress Echo Patient Name: NORBERTO MULLINS Ordering Provider: [id number] SHERWIN BELLO Study Date: 11/23/2024 Reading Physician: Lilly Mijares MD MRN/PID: [id number] Supervising Physician: Lilly Mijares MD Fellow: Date of /Age: 5 1965 / 59 years Fellow: Gender: M Nurse: Wilmer Ruiz SHOT POLISHER AND INSPECTOR, [facility] Admit Date: 11/23/2024 Ironer Machine: Admission Status: Outpatient Division Roadmaster: GRAHAM Leyva RVT Height: 180.34 cm Technologist: Weight: 84.82 kg Additional Staff: BSA: 2.05 m2 BMI: 26.08 kg/m2 Patient Location: [facility] Stress Lab Study Type: ECHOCARDIOGRAM STRESS TEST Diagnosis/ICD: Other forms of dyspnea-R06.09 Indication: Dyspnea on Exertion CPT Codes: Stress Echo-10273; Stress Test Interpretation-31083; Stress Test Supervision-31659 Falls Risk: Low: Patient has low risk for sustaining a fall; environmental safety interventions in place. Study Details: Correct procedure and correct patient verified verbally and with ID Band checked. Patient History: Hypertension and dyspnea. Allergies: None. Smoker: Current. Diabetes: No. BMI: Overweight 25 - 30. Medications: Losartan and amlodipine. The patient did not take medications as prescribed. Patient Performance: The patient exercised to stage IV on a Alec protocol for 9 minutes and 54 seconds, achieving 11.50 METS. The peak heart rate achieved was 162 bpm, which was 102 % of the age predicted target heart rate of 159 bpm. The resting blood pressure was 159/84 mmHg with a heart rate of 80 bpm. The patient developed dyspnea during the stress exam. The symptoms resolved with rest 4 minutes into recovery. The blood pressure response was normal. The test was terminated due to: dyspnea and achieved age predicted maximum heart rate. Baseline ECG: Resting ECG showed normal sinus rhythm with normal tracing. Stress ECG: Stress ECG showed sinus tachycardia. Stress Stage Data: + +---+--- ---+-------+ HR Sys BP Romo BP + +---+--- ---+-------+ Baseline Resting 80 159 84 + +---+--- ---+-------+ Stage I 117 154 88 + +---+--- ---+-------+ Stage II 129 166 87 + +---+--- ---+-------+ Stage III 146 185 80 + +---+--- ---+-------+ Stage IV 160 + +---+--- ---+-------+ Recovery ECG: Recovery ECG showed normal sinus rhythm, with sinus tachycardia. The heart rate recovery was normal. + +---+------+- ------+ HR Sys BP Romo BP + +---+------+- ------+ Recovery I 137 + +---+------+- ------+ Recovery II 121 192 88 + +---+------+- ------+ Recovery IV 96 146 82 + +---+------+- ------+ Summary: 1. Baseline EKG shows normal sinus rhythm with no resting ST-T segment changes. 2. Patient exercised for 9 minutes 54 seconds achieving 11.5 METS. Exercise capacity is above average for age. 3. Heart rate response to exercise is normal. Blood pressure response to exercise is normal. 4. With exercise no ST-T segment changes suggestive of ischemia or sustained ventricular arrhythmias are seen. Exercise tress EKG is negative for ischemia. Occasional PVCs seen. 5. No regional wall motion abnormality seen with exercise on the stress echocardiogram. 6. Overall exercise stress echocardiogram is negative for ischemia. 7. Fung treadmill score is 10 (low risk). 8. Adequate level of stress achieved. [id number] Ludwig Mijares MD Electronically signed on 11/23/2024 at 1:11:30 PM Final Ludwig Simental MD - 11/23/2024 [place] [address] [phone], Exercise Stress Echo Patient Name: NORBERTO MULLINS Ordering Provider: [id number] SHERWIN FABIANLiliana Study Date: 11/23/2024 Reading Physician: Lilly Mijares MD MRN/PID: [id number] Supervising Physician: Lilly Mijares MD Fellow: Date of /Age: 5 1965 / 59 years Fellow: Gender: M Nurse: Wilmer Ruiz SHOT POLISHER AND INSPECTOR, CCT Admit Date: 11/23/2024 Ironer Machine: Admission Status: Outpatient Division Roadmaster: Shreya Acosta RVT, [facility] Height: 180.34 cm Technologist: Weight: 84.82 kg Additional Staff: BSA: 2.05 m2 BMI: 26.08 kg/m2 Patient Location: [facility] Stress Lab Study Type: ECHOCARDIOGRAM STRESS TEST Diagnosis/ICD: Other forms of dyspnea-R06.09 Indication: Dyspnea on Exertion CPT Codes: Stress Echo-40698; Stress Test Interpretation-63578; Stress Test Supervision-81691 Falls Risk: Low: Patient has low risk for sustaining a fall; environmental safety interventions in place. Study Details: Correct procedure and correct patient verified verbally and with ID Band checked. Patient History: Hypertension and dyspnea. Allergies: None. Smoker: Current. Diabetes: No. BMI: Overweight 25 - 30. Medications: Losartan and amlodipine. The patient did not take medications as prescribed. Patient Performance: The patient exercised to stage IV on a Alec protocol for 9 minutes and 54 seconds, achieving 11.50 METS. The peak heart rate achieved was 162 bpm, which was 102 % of the age predicted target heart rate of 159 bpm. The resting blood pressure was 159/84 mmHg with a heart rate of 80 bpm. The patient developed dyspnea during the stress exam. The symptoms resolved with rest 4 minutes into recovery. The blood pressure response was normal. The test was terminated due to: dyspnea and achieved age predicted maximum heart rate. Baseline ECG: Resting ECG showed normal sinus rhythm with normal tracing. Stress ECG: Stress ECG showed sinus tachycardia. Stress Stage Data: + +---+--- ---+-------+ HR Sys BP Romo BP + +---+--- ---+-------+ Baseline Resting 80 159 84 + +---+--- ---+-------+ Stage I 117 154 88 + +---+--- ---+-------+ Stage II 129 166 87 + +---+--- ---+-------+ Stage III 146 185 80 + +---+--- ---+-------+ Stage IV 160 + +---+--- ---+-------+ Recovery ECG: Recovery ECG showed normal sinus rhythm, with sinus tachycardia. The heart rate recovery was normal. + +---+------+- ------+ HR Sys BP Romo BP + +---+------+- ------+ Recovery I 137 + +---+------+- ------+ Recovery II 121 192 88 + +---+------+- ------+ Recovery IV 96 146 82 + +---+------+- ------+ Summary: 1. Baseline EKG shows normal sinus rhythm with no resting ST-T segment changes. 2. Patient exercised for 9 minutes 54 seconds achieving 11.5 METS. Exercise capacity is above average for age. 3. Heart rate response to exercise is normal. Blood pressure response to exercise is normal. 4. With exercise no ST-T segment changes suggestive of ischemia or sustained ventricular arrhythmias are seen. Exercise tress EKG is negative for ischemia. Occasional PVCs seen. 5. No regional wall motion abnormality seen with exercise on the stress echocardiogram. 6. Overall exercise stress echocardiogram is negative for ischemia. 7. Fung treadmill score is 10 (low risk). 8. Adequate level of stress achieved. [id number] Ludwig Mijares MD Electronically signed on 11/23/2024 at 1:11:30 PM Final [facility] Work Phone: Radiology Study observation (narrative) [facility] Work Phone: Stress cardiac echo study re portOrdered By: Ludwig Mijares on 11-23-2024 [facility] Work Phone: ABD Limited w/ Elastographyo n 11-10-2024 ABD Limited w/ Elastography [facility] [address] [place] [address] [id number] ABD Limited w/ Elastography MR#: [id number] Acct: [id number] Name: NORBERTO MULLINS Rep #: [id number] : 1965 M 59 From: New zafar MD PCP: ROSSANA Scales Status: REG CLI Study: ABD Limited w/ Elastography Date of Exam: 10/23 Exam# [id number] Ordering Dr: Mala Hill ARGON TESTER- C [id number] STUDY: ABDOMINAL ULTRASOUND - RIGHT UPPER QUADRANT; ELASTOGRAPHY REASON FOR VISIT: Male, 59 years old. Right upper quadrant pain. Alcohol abuse. TECHNIQUE: Ultrasound evaluation of the right upper quadrant was performed with real-time and static velez-scale imaging. Point quantification shear wave elastography was performed ([employer] TECHNICAL QUALITY: Adequate. COMPARISON: None. FINDINGS: Liver: The liver is enlarged and measures 18.5 cm. There is increased echogenicity consistent with fatty infiltration. The bile ducts are within normal limits. There is hepatic color flow. The direction of portal flow is hepatopetal. There is a 2 cm x 2 cm x 1.6 cm cyst in the left lobe of the liver. There is also evidence of a 1.1 cm x 1.3 cm x 0.9 cm cyst in the right lobe. Median liver stiffness measured 5.3 kPa. Gallbladder: Normal distended gallbladder. The gallbladder wall measures 2.0 mm. There is a negative sonographic Elliott''s sign. There is no pericholecystic fluid. There are no gallstones. Common Bile Duct (C.B.D.): The common bile duct measures 3 mm. Pancreas: There is normal echogenicity of the visualized pancreas. There is no demonstrated pancreatic mass or cyst. Right Kidney: Normal size of the right kidney. The right kidney measures 10.4 cm x 7.2 cm x 6.2 cm. Normal renal cortex. The right cortex measures 1.5 cm. There is no demonstrated renal mass or cyst. There is no right hydronephrosis. US/ABD Limited w/ Elastography IMPRESSION: 1. Liver stiffness measures 5.3 kPa compatible with F0-F1 (Normal to mild liver fibrosis) Metavir score. 2. Hepatomegaly. Hepatic cysts. Electronically Signed: New Flanagan MD at 15:28 EST , CC: TRAE Hill; ROSSANA Scales Client Services Assistant: Signed Normal [facility] L7000.0750on 10-28-2024 P ELASTASE,FECA > 800 Normal >200 [facility] Comment on above: Result Comment: Resu lt Units: ug Elast./g Severe Pancreatic Insufficiency: <100 Moderate Pancreatic Insufficiency: 100 - 200 Normal: >200 Performed at: [address] [id number] Physical Therapy Director: Abby Thomas MD, Phone: [phone] Performed By: #### L 501.9520, L5500.0550, L300.3900, L501.6710, L3410.2400 #### [facility] [address] [place], [address] Calprotectin, Stoolon [address] 75 ug/g Normal 0-120 [facility] Comment on above: Result Comment: Conc entration Interpretation Follow-Up < 5 - 50 ug/g Normal None >50 -120 ug/g Borderline Re-evaluate in 4-6 weeks >120 ug/g Abnormal Repeat as clinically indicated Performed at: [address] [id number] Physical Therapy Director: Abby Thomas MD, Phone: [phone] Performed By: #### L 501.9520, L5500.0550, L300.3900, L501.6710, L3410.2400 #### [facility] [address] [place], [address] C. difficile DNA ALEX+probe Q l (Unsp spec)Ordered By: Mala Hill on 10-25-2024 Clostridioides difficile (PCR) [facility] CDIFF (PCR)on 10-25-2024 CDIFF Pending 027 027 NAP1-B1 Presumptive Negative *for epidemiolologic???use C. Diff PCR Negative- No toxigenic C. Diff Detected Normal [facility] Comment on above: Performed By: #### M 100.637, L7000.0700, L7000.0750, M100.5396 ####[facility] [id number] [facility] [address] [place], [place], [address] Calprotectin stoolOrdered By : Mala Hill on 10-25-2024 Stool Calprotectin 75 ug/g 0-120 [facility] Comment on above: Concentration Interp retation Follow-Up< 5 - 50 ug/g Normal None>50 -120 ug/g Borderline Re-evaluate in 4-6 weeks >120 ug/g Abnormal Repeat as clinically indicatedPerformed at: [facility] [address] [id number] Director: Abby Thomas MD, Phone: [phone] ENTERIC PATHOGEN PANEL STOOL on 10-25-2024 EP PANEL Normal Reference Ran ge = Not Detected GI pathogens Pnl Stl ALEX+probe Nucleic acid amplification test method CAMPYLOBACTER Not Detected Norovirus Not Detected Rotavirus Not Detected Salmonella Not Detected Shiga Toxin Not Detected Shigella sp. Not Detected VIBRIO Not Detected Yersinia Not Detected Normal [facility] Comment on above: Performed By: #### M 100.637, L7000.0700, L7000.0750, M100.6796 ####[facility] [address] [place], [place], [id number] Elastase.pancreatic (Stl) [M ass/Mass]Ordered By: Mala Hill on 10-25-2024 Stool Pancreatic Elastase > 800 >200 [facility] Comment on above: Result Units: ug [place] st./g Severe Pancreatic Insufficiency: <100 Moderate Pancreatic Insufficiency: 100 - 200 Normal: >200Performed at: - [facility] [address] [place], [place] [id number] Director: Abby Thomas MD, Phone: [phone] Stool enteric pathogen panel by probe and target amplification methodOrdered By: Mala Hill on 10-25-2024 Enteric Bacteriology [facility] L5500.0550on 10-21-2024 BEEF <0.10 Normal Class 0 [facility] Comment on above: Performed By: #### L 501.9520, L5500.0550, L300.3900, L501.6710, L3410.2400 #### [facility] [address] [place], [address] CHOCOLATE <0.10 Normal Class 0 [facility] Comment on above: Performed By: #### L 501.9520, L5500.0550, L300.3900, L501.6710, L3410.2400 #### [facility] [address] [place], [address] CODFISH <0.10 Normal Class 0 [facility] Comment on above: Performed By: #### L 501.9520, L5500.0550, L300.3900, L501.6710, L3410.2400 #### [facility] [address] [place], [address] COMMENT Comment Normal . [facility] Comment on above: Result Comment: Charmaine alfonso of Specific IgE Class Description of Class ----- < 0.10 0 Negative 0.10 - 0.31 0/I Equivocal/Low 0.32 - 0.55 I Low 0.56 - 1.40 II Moderate 1.41 - 3.90 III High 3.91 - 19.00 IV Very High 19.01 - 100.00 V Very High >100.00 Very High Performed By: #### L 501.9520, L5500.0550, L300.3900, L501.6710, L3410.2400 #### [facility] [address] [place], [address] CORN 0.41 kU/L Abnormal Class I [facility] Comment on above: Performed By: #### L 501.9520, L5500.0550, L300.3900, L501.6710, L3410.2400 #### [facility] [address] [place], [address] EGG, WHOLE <0.10 Normal Class 0 [facility] Comment on above: Result Comment: Perf ormed at: - [address] [id number] Physical Therapy Director: Abby Thomas MD, Phone: [phone] Performed By: #### L 501.9520, L5500.0550, L300.3900, L501.6710, L3410.2400 #### [facility] [address] [place], [address] MILK (COW) <0.10 Normal Class 0 [facility] Comment on above: Performed By: #### L 501.9520, L5500.0550, L300.3900, L501.6710, L3410.2400 #### [facility] [address] [place], [address] MUSSELS 0.24 kU/L Abnormal Class 0/I [facility] Comment on above: Performed By: #### L 501.9520, L5500.0550, L300.3900, L501.6710, L3410.2400 #### [facility] [address] [place], [address] PEANUT 0.81 kU/L Abnormal Class II [facility] Comment on above: Performed By: #### L 501.9520, L5500.0550, L300.3900, L501.6710, L3410.2400 #### [facility] [address] [place], [address] PORK <0.10 Normal Class 0 [facility] Comment on above: Performed By: #### L 501.9520, L5500.0550, L300.3900, L501.6710, L3410.2400 #### [facility] [address] [place], [address] SALMON <0.10 Normal Class 0 [facility] Comment on above: Performed By: #### L 501.9520, L5500.0550, L300.3900, L501.6710, L3410.2400 #### [facility] [address] [place], [address] SHRIMP 1.78 kU/L Abnormal Class III [facility] Comment on above: Performed By: #### L 501.9520, L5500.0550, L300.3900, L501.6710, L3410.2400 #### [facility] [address] [place], [address] SOYBEAN 0.43 kU/L Abnormal Class I [facility] Comment on above: Performed By: #### L 501.9520, L5500.0550, L300.3900, L501.6710, L3410.2400 #### [facility] [address] [place], [address] TUNA <0.10 Normal Class 0 [facility] Comment on above: Performed By: #### L 501.9520, L5500.0550, L300.3900, L501.6710, L3410.2400 #### [facility] [address] [place], [address] WHEAT 0.59 kU/L Abnormal Class II [facility] Comment on above: Performed By: #### L 501.9520, L5500.0550, L300.3900, L501.6710, L3410.2400 #### [facility] [address] [place], [address] Celiac Disease Profileon ENDOMYSIAL IGA Negative Normal Negative [facility] Comment on above: Performed By: #### L 501.9520, L5500.0550, L300.3900, L501.6710, L3410.2400 #### [facility] [address] [place], [address] IMMUNOGLOB A QN 313 mg/dL Normal 90-386 [facility] Comment on above: Result Comment: Perf ormed at: - [facility] [address] [id number] Physical Therapy Director: Noah Guevara PhD, Phone: [phone] Performed By: #### L 501.9520, L5500.0550, L300.3900, L501.6710, L3410.2400 #### [facility] [address] [place], [place], [id number] tTG IGA <2 Normal 0-3 [facility] Comment on above: Result Comment: Nega tive 0 - 3 Weak Positive 4 - 10 Positive >10 Tissue Transglutaminase (tTG) has been identified as the endomysial antigen. Studies have demonstr- ated that endomysial IgA antibodies have over 99% specificity for gluten sensitive enteropathy. Performed By: #### L 501.9520, L5500.0550, L300.3900, L501.6710, L3410.2400 #### [facility] [address] [place], [address] Beef IgE Qn (S)Ordered By: Jaden Hill on 10-16-2024 Beef Allergen (RAST) <0.10 kU/L Class 0 [facility] C-reactive protein measureme nt by high sensitivity methodOrdered By: Mala Hill on 10-16-2024 C-Reactive Protein Extended Range < 2.90 mg/L 0.0-3.0 [facility] Comment on above: C-Reactive Protein ( CRP) provides useful information for thediagnosis, therapy and monitoring of inflammatory processesand associated diseases. For the evaluation of Relative Riskfor Cardiovascular Disease, a High Sensitivity CRP (HSCRP)should be ordered. CRPon 10-16-2024 C-REACTIVE PROT < 2.90 Normal 0.0-3.0 [facility] Comment on above: Result Comment: C-Re active Protein (CRP) provides useful information for the diagnosis, therapy and monitoring of inflammatory processes and associated diseases. For the evaluation of Relative Risk for Cardiovascular Disease, a High Sensitivity CRP (HSCRP) should be ordered. Performed By: #### L 501.9520, L5500.0550, L300.3900, L501.6715, L3410.2400 #### [facility] [address] [place], [address] Chocolate IgE Qn (S)Ordered By: Mala Hill on 10-16-2024 Chocolate Allergen (RAST) <0.10 kU/L Class 0 [facility] Codfish IgE Qn (S)Ordered By : Mala Hill on 10-16-2024 Codfish Allergen (RAST) <0.10 kU/L Class 0 [facility] [place] IgE Qn (S)Ordered By: Jaden Hill on 10-16-2024 [place] Allergen (RAST) 0.41 kU/L High Class I [facility] Cow milk IgE Qn (S)Ordered B y: Mala Hill on 10-16-2024 Cow's Milk Allergen <0.10 kU/L Class 0 [facility] Endomysial IgA antibody assa yOrdered By: Mala Hill on 10-16-2024 Endomysial IgA Antibody Negative Negative [facility] Gastroenterology Visit Repor ton 10-16-2024 Gastroenterology Visit Report [facility] [address] [place] [address] OFFICE VISIT Date of Service: 10/16/24 MR#: [id number] Acct: [id number] Name: NORBERTO MULLINS Rep #: [id number] : 1965 Provider: TRAE vo Age/Sex: 59/M Location: [facility] [place] Status: Signed Intake Vital Signs 10/16/24 15:37 Weight: 194 lb 6 oz BP 160/92 H Respiration 16 Pulse 81 Pulse Oximetry (%) 92 Oxygen Delivery Method room air Intake Visit Reasons: Diarrhea, Left Lower Quadrant Abdominal Pain, left and right quad pain Chief Complaint: pain and diarrhea Bead Maker Required: No Is patient in pain?: No Allergies No Known Allergies Allergy (Verified 10/16/24 16:09) Medications ???Medication ???Instructions ???Recorded ???Confirmed ???Type amlodipine 5 mg tablet 5 mg PO QDAY 10/11/24 10/11/24 History losartan 100 mg tablet 100 mg PO QDAY 10/11/24 10/11/24 History pantoprazole 40 mg tablet,delayed 40 mg PO QDAY 10/11/24 10/11/24 History release Have you fallen in the past year?: No Nurse's Note: Started approx. 4-5 months ago. Has diarrhea every hour with urgency. No cramping. Sometimes there is blood. Had a colonoscopy about 10 years ago. Rarely has nausea/vomiting. If he does it's usually in the morning. Has bloating daily. PFS Medical History (Updated 10/17/24 @ 08:28 by Mala Hill NP-C) Primary hypertension Pain of left hip Heartburn Diarrhea Social History (Updated 10/11/24 @ 07:21 by Yoly Tripathi) alcohol intake: current details: drinking about 15-20 1oz shots of alcohol nightly HPI HPI Chief Complaint: pain and diarrhea Details: NORBERTO MULLINS, is a 59 M who presents to the office today for LABS 08/09/2024 HGB 11.5, K+ 3.3, Fe panel WNL, Ferritin 708 08/15/2024 O P, Giardia, H. pylori, Cryptosporidium were all negative CT A P 08/04/2024 The liver demonstrates a normal noncontrast attenuation. Interval increase in size in the low attenuating lesions within the left and right hepatic lobe, the largest measures 1.8 cm in liver segment 3 (series 3, image 31), previously measured 0.6 cm. These are most compatible with benign liver cysts. Multiple new calcified splenic granulomas. Newly mildly prominent bilateral inguinal lymph nodes measuring 1.0 cm bilaterally. They demonstrate normal morphology. No acute retroperitoneal abnormality. - diarrhea, nausea and LLQ pain x4-5 months - diarrhea every morning - every hour - can be a small amount - occasional blood - BRBPR - can color the water red - denies any rectal pain - c/o bloating - pain is in the lower abdomen - pain can be worse with a BM - pain is not intense 3/10 - abdominal cramping - he started pantoprazole in the past 2 weeks - denies any family h/o celiac, or colon CA - maternal uncle with colon cancer - reports he is feeling feverish - he does experience some SOB - ongoing for the past 18 months - reports since starting BP med this has helped - denies any h/o cardiac w/u - he reports he is SOB taking out the trash - to the point now that he is taking the trash down in his car because of GONZALEZ EtOH 15-20 shots of bourbon or whisky a day for many years - anemia - reports without alcohol he cannot sleep - makes him feel guilty - 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 He started pantoprazole 40mg daily two weeks ago without improvement. LLQ Pain is 3/10 and can worsen with a BM. He also experiences occasional BRBPR with BM. He denies any improvement with Metamucil. Labs completed 08/09/2024 revealed mild anemia with normal Fe panel. Ferritin is elevated; however, this is likely secondary to large quantities of daily alcohol intake. CT completed 08/04/2024 revealed enlargement of liver lesions; likely cysts. He denies having any desire to cease alcohol intake and we have discussed risks including if he continues to consume daily alcohol. Exam Const General: healthy appearing, no acute distress and well developed Nutritional Appearance: average body habitus and well nourished Orientation: alert and oriented x3 HENMT Head: normocephalic Ears: hearing grossly normal bilaterally Mouth: moist mucous membranes Teeth and gingiva: dentition normal Eyes General: appearance normal, both eyes and all related structures Conjunctivae: conjunctivae normal Sclera: sclerae normal Neck Neck: normal visual inspection, full ROM and trachea midline Chest Chest palpation inspection: normal inspection of the chest Resp Effort Inspection: normal respiratory effort, able to speak (more content not included)... Normal [facility] IgA [Mass/Vol]Ordered By: Polo Hill on 10-16-2024 Immunoglobulin A 313 mg/dL 90-386 [facility] Comment on above: Performed at: [address] [id number] Director: Noah Guevara PhD, Phone: [phone] International normalized rat io (INR) calculationOrdered By: Mala Hill on 10-16-2024 INR Coag (Bld) [Relative time] 1.0 {INR} [facility] Peanut IgE Qn (S)Ordered By: Mala Hill on 10-16-2024 Peanut Allergen (RAST) 0.81 kU/L High Class II [facility] Pork IgE Qn (S)Ordered By: Jaden Hill on 10-16-2024 Pork Allergen (RAST) <0.10 kU/L Class 0 [facility] Prothrombin Time w/INRon INR Coag (PPP) [Relative time] 1.0 {INR} Normal [facility] Comment on above: Performed By: #### L 501.9520, L5500.0550, L300.3900, L501.6710, L3410.2400 #### [facility] [address] [place], [place], [id number] ([phone] PT Coag (PPP) [Time] 12.7 s Normal 11.7-14.9 [facility] Comment on above: Performed By: #### L 501.9520, L5500.0550, L300.3900, L501.6710, L3410.2400 #### [facility] [address] [place], [address] Prothrombin timeOrdered By: Mala Hill on 10-16-2024 PT Coag (PPP) [Time] 12.7 s 11.7-14.9 [facility] Interlachen IgE Qn (S)Ordered By: Mala Hill on 10-16-2024 Interlachen Allergen IgE Antibody <0.10 kU/L Class 0 [facility] Serum mussel specific IgE an tibody assayOrdered By: Mala Hill on 10-16-2024 Mussel Allergen IgE Antibody 0.24 kU/L High Class 0/I [facility] Serum shrimp specific IgE an tibody assayOrdered By: Mala Hill on 10-16-2024 Shrimp Allergen 1.78 kU/L High Class III [facility] Service comment (Unsp spec) [Interp]Ordered By: Mala Hill on 10-16-2024 RAST Comment Comment . [facility] Comment on above: Levels of Specific I gE Class Description of Class ----- < 0.10 0 Negative 0.10 - 0.31 0/I Equivocal/Low 0.32 - 0.55 I Low 0.56 - 1.40 II Moderate 1.41 - 3.90 III High 3.91 - 19.00 IV Very High 19.01 - 100.00 V Very High >100.00 Very High Soybean IgE Qn (S)Ordered By : Mala Hill on 10-16-2024 Soybean Allergen (RAST) 0.43 kU/L High Class I [facility] TSH QnOrdered By: Mala vo on 10-16-2024 Thyroid Stimulating Hormone (TSH) 2.640 uIU/mL 0.358-3.740 [facility] Thyroid Stim Hormone (TSH)on 10-16-2024 TSH 2.640 uIU/mL Normal 0.358-3.740 [facility] Comment on above: Performed By: #### L 501.9520, L5500.0550, L300.3900, L501.6710, L3410.2400 #### [facility] [place], [address] Tuna IgE Qn (S)Ordered By: Jaden Hill on 10-16-2024 Tuna Allergen (RAST) <0.10 kU/L Class 0 [facility] Wheat IgE Qn (S)Ordered By: Mala Hill on 10-16-2024 Wheat Allergen (RAST) 0.59 kU/L High Class II [facility] Whole Egg IgE Qn (S)Ordered By: Mala Hill on 10-16-2024 Egg Whole Allergen <0.10 kU/L Class 0 [facility] Comment on above: Performed at: [facility] [address] [id number] Director: Abby Thomas MD, Phone: [phone] tTG IgA Qn (S)Ordered By: Polo Hill on 10-16-2024 Tissue Transglutaminase IgA Ab <2 U/mL 0-3 [facility] Comment on above: Negative 0 - 3 Weak Positive 4 - 10 Positive >10 Tissue Transglutaminase (tTG) has been identified as the endomysial antigen. Studies have demonstr- ated that endomysial IgA antibodies have over 99% specificity for gluten sensitive enteropathy. Urinalysis complete W Reflex Culture panel (U)on 08-10-2024 Appearance (U) Clear Normal Clear [facility] Comment on above: Performed By: #### 2 4331-1 #### GREGORIA GOFF ([id number]) [facility]) [address] [place] [address] 65373 Bilirubin (U) [Mass/Vol] Negative Normal NEGATIVE [facility] Comment on above: Performed By: #### 2 4331-1 #### GREGORIA GOFF ([id number]) [facility]) [address] [place] [address] 96726 Color (U) Yellow Normal Light-Yello w, Yellow, Dark-Yellow [facility] Comment on above: Performed By: #### 2 4331-1 #### GREGORIA GOFF ([id number]) [facility]) [address] [place] [address] 56681 Glucose Auto test strip (U) [Mass/Vol] Normal Normal Normal [facility] Comment on above: Performed By: #### 2 4331-1 #### GREGORIA GOFF ([id number]) [facility]) [address] [place] [address] 66765 Ketones (U) [Mass/Vol] Negative Normal NEGATIVE [facility] Comment on above: Performed By: #### 2 4331-1 #### GREGORIA GOFF ([id number]) [facility]) [address] [place] [address] 37110 Leukocyte esterase Auto test strip Ql (U) Negative Normal NEGATIVE [facility] Comment on above: Performed By: #### 2 4331-1 #### GREGORIA GOFF ([id number]) [facility]) [address] [place] [address] 13587 Mucus Auto (Urine sed) [#/Area] FEW Normal Reference range not established . [facility] Comment on above: Performed By: #### 2 4331-1 #### GREGORIA GOFF ([id number]) [facility]) [address] [place] [address] 11875 Nitrite Auto test strip Ql (U) Negative Normal NEGATIVE [facility] Comment on above: Performed By: #### 2 4331-1 #### GREGORIA GOFF ([id number]) [facility]) [address] [place] [address] 62436 pH (U) 6.0 [pH] Normal 5.0, 5.5, 6.0, 6.5, 7.0, 7.5, 8.0 [facility] Comment on above: Performed By: #### 2 4331-1 #### GREGORIA GOFF ([id number]) [facility]) [address] [place] [address] 13660 Protein (U) [Mass/Vol] 20 (TRACE) Normal NEGATIVE, 10 (TRACE), 20 (TRACE) [facility] Comment on above: Performed By: #### 2 4331-1 #### GREGORIA GOFF ([id number]) [facility]) [address] [place] [address] 74409 RBC (U) [#/Vol] Negative Normal NEGATIVE [facility] Comment on above: Performed By: #### 2 4331-1 #### GREGORIA GOFF ([id number]) [facility]) [address] [place] [address] 47169 RBC Auto (Urine sed) [#/Area] 1-2 Normal NONE, 1-2, 3-5 [facility] Comment on above: Performed By: #### 2 4331-1 #### GREGORIA GOFF ([id number]) [facility]) [address] [place] [address] 20932 Specific gravity (U) [Rel density] 1.015 Normal 1.005-1.035 [facility] Comment on above: Performed By: #### 2 4331-1 #### GREGORIA GOFF ([id number]) [facility]) [address] [place] [address] 19694 Urobilinogen (U) [Mass/Vol] Normal Normal Normal [facility] Comment on above: Performed By: #### 2 4331-1 #### GREGORIA GOFF ([id number]) [facility]) [address] [place] [address] 43885 WBC Auto (Urine sed) [#/Area] 1-5 Normal 1-5, NONE [facility] Comment on above: Performed By: #### 2 4331-1 #### GREGORIA GOFF ([id number]) [facility]) [address] [place] [address] 74922 CBC W Auto Differential pane l (Bld)on 08-09-2024 Basophils (Bld) [#/Vol] 0.05 x10*3/uL Normal 0.00-0.10 [facility] Comment on above: Performed By: #### 5 7021-8 #### GREGORIA GOFF ([id number]) [facility]) [address] [place] [address] 56931 Basophils/100 WBC (Bld) 0.8 % Normal 0.0-2.0 [facility] Comment on above: Performed By: #### 5 7021-8 #### GREGORIA GOFF ([id number]) [facility]) [address] [place] [address] 95356 Eosinophils (Bld) [#/Vol] 0.01 x10*3/uL Normal 0.00-0.70 [facility] Comment on above: Performed By: #### 5 7021-8 #### GREGORIA GOFF ([id number]) [facility]) [address] [place] [address] 32570 Eosinophils/100 WBC (Bld) 0.2 % Normal 0.0-6.0 [facility] Comment on above: Performed By: #### 5 7021-8 #### GREGORIA GOFF ([id number]) [facility]) [address] [place] [address] Erythrocyte distribution width (RBC) [Ratio] 12.6 % Normal 11.5-14.5 [facility] Comment on above: Performed By: #### 5 7021-8 #### GREGORIA GOFF ([id number]) [facility]) [address] [place] [address] Hematocrit (Bld) [Volume fraction] 33.6 % Low 41.0-52.0 [facility] Comment on above: Performed By: #### 5 7021-8 #### GREGORIA GOFF ([id number]) [facility]) [address] [place] [address] Hemoglobin (Bld) [Mass/Vol] 11.5 g/dL Low 13.5-17.5 [facility] Comment on above: Performed By: #### 5 7021-8 #### GREGORIA GOFF ([id number]) [facility]) [address] [place] [address] Immature granulocytes (Bld) [#/Vol] 0.03 x10*3/uL Normal 0.00-0.70 [facility] Comment on above: Performed By: #### 5 7021-8 #### GREGORIA GOFF ([id number]) [facility]) [address] [place], [place] [id number] Immature granulocytes/100 WBC (Bld) 0.5 % Normal 0.0-0.9 [facility] Comment on above: Result Comment: Alice ture Granulocyte Count (IG) includes promyelocytes, myelocytes and metamyelocytes but does not include bands. Percent differential counts (%) should be interpreted in the context of the absolute cell counts (cells/UL). Performed By: #### 5 7021-8 #### GREGORIA GOFF ([id number]) [facility]) [address] [place] [address] Lymphocytes (Bld) [#/Vol] 1.29 x10*3/uL Normal 1.20-4.80 [facility] Comment on above: Performed By: #### 5 7021-8 #### GREGORIA GOFF ([id number]) [facility]) [address] [place] [address] 77057 Lymphocytes/100 WBC (Bld) 21.2 % Normal 13.0-44.0 [facility] Comment on above: Performed By: #### 5 7021-8 #### GREGORIA GOFF ([id number]) [facility]) [address] [place] [address] 94439 MCH (RBC) [Entitic mass] 32.2 pg Normal 26.0-34.0 [facility] Comment on above: Performed By: #### 5 7021-8 #### GREGORIA GOFF ([id number]) [facility]) [address] [place] [address] 58849 MCHC (RBC) [Mass/Vol] 34.2 g/dL Normal 32.0-36.0 [facility] Comment on above: Performed By: #### 5 7021-8 #### GREGORIA GOFF ([id number]) [facility]) [address] [place] [address] 36489 MCV (RBC) [Entitic vol] 94 fL Normal 80-100 [facility] Comment on above: Performed By: #### 5 7021-8 #### GREGORIA GOFF ([id number]) [facility]) [address] [place] [address] 68678 Monocytes (Bld) [#/Vol] 0.62 x10*3/uL Normal 0.10-1.00 [facility] Comment on above: Performed By: #### 5 7021-8 #### GREGORIA GOFF ([id number]) [facility]) [address] [place] [address] 97031 Monocytes/100 WBC (Bld) 10.2 % Normal 2.0-10.0 [facility] Comment on above: Performed By: #### 5 7021-8 #### GREGORIA GOFF ([id number]) [facility]) [address] [place] [address] 22264 Neutrophils (Bld) [#/Vol] 4.08 x10*3/uL Normal 1.20-7.70 [facility] Comment on above: Result Comment: Perc ent differential counts (%) should be interpreted in the context of the absolute cell counts (cells/uL). Performed By: #### 5 7021-8 #### GREGORIA GOFF ([id number]) [facility]) [address] [place] [address] 12311 Neutrophils/100 WBC (Bld) 67.1 % Normal 40.0-80.0 [facility] Comment on above: Performed By: #### 5 7021-8 #### GREGORIA GOFF ([id number]) [facility]) [address] [place] [address] 18951 Nucleated RBC/100 WBC (Bld) [Ratio] 0.0 /100 WBCs Normal 0.0-0.0 [facility] Comment on above: Performed By: #### 5 7021-8 #### GREGORIA GOFF ([id number]) [facility]) [address] [place] [address] 82488 Platelets (Bld) [#/Vol] 351 x10*3/uL Normal 150-450 [facility] Comment on above: Performed By: #### 5 7021-8 #### GREGORIA GOFF ([id number]) [facility]) [address] [place] [address] 40668 RBC (Bld) [#/Vol] 3.57 x10*6/uL Low 4.50-5.90 [facility] Comment on above: Performed By: #### 5 7021-8 #### GREGORIA GOFF ([id number]) [facility]) [address] [place] [address] 73842 WBC (Bld) [#/Vol] 6.1 x10*3/uL Normal 4.4-11.3 [facility] Comment on above: Performed By: #### 5 7021-8 #### GREGORIA GOFF ([id number]) [facility]) [address] [place] [address] Cobalaminson 08-09-2024 Cobalamin (Vitamin B12) [Mass/Vol] 325 pg/mL Normal 211-911 [facility] Comment on above: Performed By: #### 2 4331-1 #### GREGORIA GOFF ([id number]) [facility]) [address] [place] [address] Comprehensive metabolic 2000 panelon 08-09-2024 Albumin BCP dye [Mass/Vol] 4.7 g/dL Normal 3.4-5.0 [facility] Comment on above: Performed By: #### 2 4323-8 #### GREGORIA GOFF ([id number]) [facility]) [address] [place] [address] 95120 ALP [Catalytic activity/Vol] 57 U/L Normal 33-136 [facility] Comment on above: Performed By: #### 2 4323-8 #### GREGORIA GOFF ([id number]) [facility]) [address] [place] [address] 67434 ALT With P-5'-P [Catalytic activity/Vol] 14 U/L Normal 10-52 [facility] Comment on above: Result Comment: Zita ents treated with Sulfasalazine may generate falsely decreased results for ALT. Performed By: #### 2 4323-8 #### GREGORIA GOFF ([id number]) [facility]) [facility] [place] [address] Anion gap [Moles/Vol] 17 mmol/L Normal 10-20 [facility] Comment on above: Performed By: #### 2 4323-8 #### GREGORIA GOFF ([id number]) [facility]) [address] [place] [address] 37676 AST With P-5'-P [Catalytic activity/Vol] 19 U/L Normal 9-39 [facility] Comment on above: Performed By: #### 2 4323-8 #### GREGORIA GOFF ([id number]) [facility]) [address] [place] [address] Bilirubin [Mass/Vol] 1.0 mg/dL Normal 0.0-1.2 [facility] Comment on above: Performed By: #### 2 4323-8 #### GREGORIA GOFF ([id number]) [facility]) [address] [place] [address] Calcium [Mass/Vol] 9.0 mg/dL Normal 8.6-10.3 [facility] Comment on above: Performed By: #### 2 4323-8 #### GREGORIA GOFF ([id number]) [facility]) [address] [place] [address] 02958 Chloride [Moles/Vol] 103 mmol/L Normal 98-107 [facility] Comment on above: Performed By: #### 2 4323-8 #### GREGORIA GOFF ([id number]) [facility]) [address] [place] [address] 15844 CO2 [Moles/Vol] 26 mmol/L Normal 21-32 [facility] Comment on above: Performed By: #### 2 4323-8 #### GREGORIA GOFF ([id number]) [facility]) [facility] [place] [address] Creatinine [Mass/Vol] 0.85 mg/dL Normal 0.50-1.30 [facility] Comment on above: Performed By: #### 2 4323-8 #### GREGORIA GOFF ([id number]) [facility]) [address] [place] [address] 64791 GFR/1.73 sq M.predicted MDRD (S/P/Bld) [Vol rate/Area] mL/min/{1.73_m2} Normal >60 [facility] Comment on above: Result Comment: Calc ulations of estimated GFR are performed using the 2020 CKD-EPI Study Refit equation without the race variable for the IDMS-Traceable creatinine methods. https://jasn.asnjournals.org/content/early//ASN.354805 3773 Performed By: #### 2 4323-8 #### GREGORIA GOFF ([id number]) [facility]) [address] [place] [address] 23512 Glucose [Mass/Vol] 104 mg/dL High 74-99 [facility] Comment on above: Performed By: #### 2 4323-8 #### GREGORIA GOFF ([id number]) [facility]) [address] [place] [address] 35184 Potassium [Moles/Vol] 3.3 mmol/L Low 3.5-5.3 [facility] Comment on above: Performed By: #### 2 4323-8 #### GREGORIA GOFF ([id number]) [facility]) [address] [place] [address] 83644 Protein [Mass/Vol] 7.2 g/dL Normal 6.4-8.2 [facility] Comment on above: Performed By: #### 2 4323-8 #### GREGORIA GOFF ([id number]) [facility]) [address] [place] [address] 53324 Sodium [Moles/Vol] 143 mmol/L Normal 136-145 [facility] Comment on above: Performed By: #### 2 4323-8 #### GREGORIA GOFF ([id number]) [facility]) [address] [place] [address] 16285 Urea nitrogen [Mass/Vol] 13 mg/dL Normal 6-23 [facility] Comment on above: Performed By: #### 2 4323-8 #### GREGORIA GOFF ([id number]) [facility]) [address] [place] [address] 81255 Cryptosporidium sp Agon 07-23 Cryptosporidium sp Ag IA Ql (Stl) Negative Normal Negative [facility] Comment on above: Result Comment: Perf ormed By: [employer] [address] [place] [address] 25086 [employer] Sales Representative: Jaskaran Marshall MD, PhD CLIA Number: [id number] Performed By: #### 2 4331-1 #### GREGORIA GOFF ([id number]) [facility]) [address] [place] [address] Ferritinon 08-09-2024 Ferritin [Mass/Vol] 708 ng/mL High 20-300 [facility] Comment on above: Performed By: #### 2 276-4 #### GREGORIA GOFF ([id number]) [facility]) [address] [place] [address] Folateon 08-09-2024 Folate [Mass/Vol] 6.0 ng/mL Normal >5.0 [facility] Comment on above: Order Comment: Low < 3.4 Borderline 3.4-5.0 Normal >5.0 Patients receiving more than 5 mg/day of biotin may have interference in test results. A sample should be taken no sooner than eight hours after previous dose. Contact the testing laboratory for additional information. Performed By: #### 2 284-8 #### GREGORIA GOFF ([id number]) [facility]) [address] [place] [address] Giardia lamblia Agon 024 G. lamblia Ag IA Ql (Stl) Negative Normal Negative [facility] Comment on above: Result Comment: Perf ormed By: [employer] [address] [place] [address] 30785 [employer] Sales Representative: Jaskaran Marshall MD, PhD CLIA Number: [id number] Performed By: #### 2 4331-1 #### GREGORIA GOFF ([id number]) [facility]) [address] [place] [address] Helicobacter pylori Agon H. pylori Ag IA Ql (Stl) Negative Normal Negative [facility] Comment on above: Result Comment: Perf ormed By: [facility] [address] [place] [address] [employer] Sales Representative: Jaskaran Marshall MD, PhD CLIA Number: [id number] Performed By: #### 2 4331-1 #### GREGORIA GOFF ([id number]) [facility]) [address] [place] [address] Hemoglobin.gastrointestinal^ 1st specimenon 08-09-2024 Hemoglobin.gastrointe stinal spec 1 Ql (Stl) Negative Normal Negative [facility] Comment on above: Performed By: #### 1 4563-1 #### JEREMIAH Basurto ([id number]) [facility] ([facility]) [address] [place] [address] Iron and Iron binding capaci ty panelon 08-09-2024 Iron [Mass/Vol] 116 ug/dL Normal 35-150 [facility] Comment on above: Performed By: #### 5 0190-8 #### GREGORIA GOFF ([id number]) [facility]) [address] [place] [address] 58640 Iron binding capacity [Mass/Vol] 360 ug/dL Normal 240-445 [facility] Comment on above: Performed By: #### 5 0190-8 #### GREGORIA GOFF ([id number]) [facility] LAB ([facility]) [address] [place] [address] 90302 Iron binding capacity.unsaturated [Mass/Vol] 244 ug/dL Normal 110-370 [facility] Comment on above: Performed By: #### 5 0190-8 #### GREGORIA GOFF ([id number]) [facility] ([facility]) [address] [place] [address] 36008 Iron saturation [Mass fraction] 32 % Normal 25-45 [facility] Comment on above: Performed By: #### 5 0190-8 #### GREGORIA GOFF ([id number]) [facility] ([facility]) [address] [place] [address] 12953 Ova AND parasites identified on 08-09-2024 Ova and parasites identified LM Nom (Stl) Negative Normal Negative [facility] Comment on above: Result Comment: INTERPRETIVE INFORMATION: Ova and Parasite, Fecal Method for identification of Ova and Parasites includes wet mount and trichrome stains. Due to the various shedding cycles of many parasites, three separate stool specimens collected over a 5-7-day period are recommended for ova and parasite examination. A single negative result does not rule out the possibility of a parasitic infection. The ova and parasite exam does not specifically detect Cryptosporidium, Cyclospora, Cystoisospora, and Microsporidia. For additional test information refer to [employer] consult, [email or web address] Performed By: [facility] [address] [place] [address] [employer] Sales Representative: Jaskaran Marshall MD, PhD CLIA Number: [id number] Performed By: #### 2 4331-1 #### GREGORIA GOFF ([id number]) [facility] ([facility]) [facility] [place] [address] Prostate specific Agon 08-09 Prostate specific Ag [Mass/Vol] 0.18 ng/mL Normal <=4.00 [facility] Comment on above: Order Comment: The DA requires that the method used for PSA assay be reported to the physician. Values obtained with different assay methods must not be used interchangeably. This test was performed at [facility] using the Newslabs PSA assay is a two-site immunoenzymatic sandwich assay. The assay is approved for measurement of prostate-specific antigen (PSA)in serum and may be used in conjunction with a digital rectal examination in men 50 years and older as an aid in detection of prostate cancer. 0-Xangn-igsrezuwf inhibitors (e.g. Proscar, Finasteride, Avodart, Dutasteride and Anushka) for the treatment of BPH have been shown to lower PSA levels by an average of 50% after 6 months of treatment. Performed By: #### 2 857-1 #### GREGORIA GOFF ([id number]) [facility] ([facility]) [address] [place] [address] CT ABDOMEN PELVIS WO IV CONT [facility] 08-04-2024 CT ABDOMEN PELVIS WO IV CONTRAST Interpreted By: Albert King and Ebai Jerky STUDY: CT ABDOMEN PELVIS WO IV CONTRAST; 08/04/2024 4:19 pm INDICATION: Signs/Symptoms:see dx. ,R19.7 Diarrhea, unspecified,R19.00 Intra-abdominal and pelvic swelling, mass and lump, unspecified site,R10.32 Left lower quadrant pain COMPARISON: 11/23/2015. ACCESSION NUMBER(S): [id number] ORDERING CLINICIAN: RAJINDER OSEI TECHNIQUE: Contiguous axial images of the abdomen and pelvis were obtained without intravenous contrast. Coronal and sagittal reformatted images were reconstructed from the axial data. FINDINGS: Note: The absence of intravenous contrast limits evaluation of the solid organs and vasculature. LOWER CHEST: No acute abnormality. Mild bilateral atelectasis. ABDOMEN/PELVIS: ABDOMINAL WALL: Tiny fat containing umbilical hernia. LIVER: The liver demonstrates a normal noncontrast attenuation. Interval increase in size in the low attenuating lesions within the left and right hepatic lobe, the largest measures 1.8 cm in liver segment 3 (series 3, image 31), previously measured 0.6 cm. These are most compatible with benign liver cysts. BILE DUCTS: No significant intrahepatic or extrahepatic dilatation. GALLBLADDER: No significant abnormality. PANCREAS: No significant abnormality. SPLEEN: Liver is normal in size. Multiple new calcified splenic granulomas. ADRENALS: No significant abnormality. KIDNEYS, URETERS, BLADDER: The 2 subcentimeter high attenuating lesions within the inter pole region of the left kidney, likely relates to hemorrhagic/proteinaceous cysts, the largest measures 7 mm. No nephroureterolithiasis or hydroureteronephrosis. Circumferential mural thickening of the bladder wall disproportionate to the degree of distention, new from prior. REPRODUCTIVE ORGANS: Prostate is nonenlarged. There is a partially visualized small left coronal hydrocele. Presumable vasectomy clips are seen bilaterally. VESSELS: Mild atherosclerotic calcification of the abdominal aorta and its branching vessels without aneurysmal dilatation. The IVC is normal in caliber. RETROPERITONEUM/LYMPH NODES: No enlarged lymph nodes. Newly mildly prominent bilateral inguinal lymph nodes measuring 1.0 cm bilaterally. They demonstrate normal morphology. No acute retroperitoneal abnormality. BOWEL/MESENTERY/PERITONEU M: Postsurgical changes of appendectomy. Colonic diverticulosis without evidence of diverticulitis. No inflammatory bowel wall thickening or dilatation. Normal appendix. No ascites, free air, or fluid collection. MUSCULOSKELETAL: No acute osseous abnormality. No suspicious osseous lesion. Stable 1.0 cm peripheral sclerotic lesion within the right iliac bone (series 3, image 101), likely represents a benign osseous lesion. IMPRESSION: 1. Mild circumferential mural thickening of the bladder wall disproportionate degree of distention, recommend correlation with urinalysis for cystitis. 2. There are 2 small newly prominent bilateral inguinal lymph nodes with normal morphology, likely benign/reactive. 3. Colonic diverticulosis without diverticulitis. I personally reviewed the images/study and I agree with the findings as stated by Resident Razia Hendrix. This study was interpreted at [facility], [place], [place]. MACRO: None. Signed by: Albert King 08/05/2024 3:26 PM Dictation workstation: [id number] Normal [facility] Cobalaminson 04-03-2024 Cobalamin (Vitamin B12) [Mass/Vol] 288 pg/mL Normal 211-911 [facility] Comment on above: Performed By: #### 2 132-9 #### GREGORIA GOFF ([id number]) [facility] ([facility]) [address] [place] [address] Comprehensive metabolic 2000 panelon 04-03-2024 Albumin BCP dye [Mass/Vol] 4.1 g/dL Normal 3.4-5.0 [facility] Comment on above: Performed By: #### 2 4323-8 #### GREGORIA GOFF ([id number]) [facility] ([facility]) [address] [place] [address] ALP [Catalytic activity/Vol] 53 U/L Normal 33-120 [facility] Comment on above: Performed By: #### 2 4323-8 #### GREGORIA GOFF ([id number]) [facility] ([facility]) [address] [place] [address] ALT With P-5'-P [Catalytic activity/Vol] 18 U/L Normal 10-52 [facility] Comment on above: Result Comment: Zita ents treated with Sulfasalazine may generate falsely decreased results for ALT. Performed By: #### 2 4323-8 #### GREGORIA GOFF ([id number]) [facility] ([facility]) [address] [place] [address] 52759 Anion gap [Moles/Vol] 12 mmol/L Normal 10-20 [facility] Comment on above: Performed By: #### 2 4323-8 #### GREGORIA GOFF ([id number]) [facility] ([facility]) [address] [place], [place] [id number] AST With P-5'-P [Catalytic activity/Vol] 18 U/L Normal 9-39 [facility] Comment on above: Performed By: #### 2 4323-8 #### GREGORIA GOFF ([id number]) [facility] ([facility]) [address] [place] [address] 34731 Bilirubin [Mass/Vol] 0.5 mg/dL Normal 0.0-1.2 [facility] Comment on above: Performed By: #### 2 4323-8 #### GREGORIA GOFF ([id number]) [facility] ([facility]) [address] [place] [address] 63509 Calcium [Mass/Vol] 8.8 mg/dL Normal 8.6-10.3 [facility] Comment on above: Performed By: #### 2 4323-8 #### GREGORIA GOFF ([id number]) [facility] ([facility]) [address] [place] [address] 61640 Chloride [Moles/Vol] 104 mmol/L Normal 98-107 [facility] Comment on above: Performed By: #### 2 4323-8 #### GREGORIA GOFF ([id number]) [facility] ([facility]) [address] [place] [address] 63034 CO2 [Moles/Vol] 28 mmol/L Normal 21-32 [facility] Comment on above: Performed By: #### 2 4323-8 #### GREGORIA GOFF ([id number]) [facility] ([facility]) [address] [place] [address] 83839 Creatinine [Mass/Vol] 0.63 mg/dL Normal 0.50-1.30 [facility] Comment on above: Performed By: #### 2 4323-8 #### GREGORIA GOFF ([id number]) [facility] ([facility]) [address] [place] [address] 06190 GFR/1.73 sq M.predicted MDRD (S/P/Bld) [Vol rate/Area] mL/min/{1.73_m2} Normal >60 [facility] Comment on above: Result Comment: Calc ulations of estimated GFR are performed using the 2020 CKD-EPI Study Refit equation without the race variable for the IDMS-Traceable creatinine methods. https://jasn.asnjournals.org/content//ASN.009082 4995 Performed By: #### 2 4323-8 #### GREGORIA GOFF ([id number]) [facility] ([facility]) [address] [place] [address] 23693 Glucose [Mass/Vol] 100 mg/dL High 74-99 [facility] Comment on above: Performed By: #### 2 4323-8 #### GREGORIA GOFF ([id number]) [facility] ([facility]) [address] [place] [address] 29061 Potassium [Moles/Vol] 3.7 mmol/L Normal 3.5-5.3 [facility] Comment on above: Performed By: #### 2 4323-8 #### GREGORIA GOFF ([id number]) [facility] ([facility]) [address] [place] [address] 00800 Protein [Mass/Vol] 6.2 g/dL Low 6.4-8.2 [facility] Comment on above: Performed By: #### 2 4323-8 #### GREGORIA GOFF ([id number]) [facility] ([facility]) [address] [place] [address] 78451 Sodium [Moles/Vol] 140 mmol/L Normal 136-145 [facility] Comment on above: Performed By: #### 2 4323-8 #### GREGORIA GOFF ([id number]) [facility] ([facility]) [address] [place] [address] 84491 Urea nitrogen [Mass/Vol] 16 mg/dL Normal 6-23 [facility] Comment on above: Performed By: #### 2 4323-8 #### GREGORIA GOFF ([id number]) [facility] ([facility]) [address] [place] [address] 09173 Lipid 1996 panelon 4 Cholesterol [Mass/Vol] 188 mg/dL Normal 0-199 [facility] Comment on above: Result Comment: Age Desirable Borderline High High 0-19 Y 0 - 169 170 - 199 >/= 200 20-24 Y 0 - 189 190 - 224 >/= 225 >24 Y 0 - 199 200 - 239 >/= 240 All ranges are based on fasting samples. Specific therapeutic targets will vary based on patient-specific cardiac risk. Pediatric guidelines reference:Pediatrics 2011, 128(S5).Adult guidelines reference: NCEP ATPIII Guidelines,LESLIE 2001, 258:2486-97 Venipuncture immediately after or during the administration of Metamizole may lead to falsely low results. Testing should be performed immediately prior to Metamizole dosing. Performed By: #### 2 4331-1 #### GREGORIA GOFF ([id number]) [facility] ([facility]) [address] [place] [address] 65737 Cholesterol in HDL [Mass/Vol] 79.0 mg/dL Normal [facility] Comment on above: Result Comment: Age Very Low Low Normal High 0-19 Y < 35 < 40 40-45 ---- 20-24 Y ---- < 40 >45 ---- >24 Y ---- < 40 40-60 >60 Performed By: #### 2 4331-1 #### GREGORIA GOFF ([id number]) [facility] ([facility]) [address] [place] [address] 10396 Cholesterol in LDL [Mass/Vol] 94 mg/dL Normal <=99 [facility] Comment on above: Result Comment: Near Borderline AGE Desirable Optimal High High Very High 0-19 Y 0 - 109 --- 110-129 >/= 130 ---- 20-24 Y 0 - 119 --- 120-159 >/= 160 ---- >24 Y 0 - 99 100-129 130-159 160-189 >/=190 Performed By: #### 2 4331-1 #### GREGORIA GOFF ([id number]) [facility] ([facility]) [address] [place] [address] 13991 Cholesterol in VLDL [Mass/Vol] 15 mg/dL Normal 0-40 [facility] Comment on above: Performed By: #### 2 4331-1 #### GREGORIA GOFF ([id number]) [facility] ([facility]) [facility] [place] [address] CHOLESTEROL/HDL RATIO 2.4 Normal [facility] Comment on above: Result Comment: Ref Values Desirable < 3.4 High Risk > 5.0 Performed By: #### 2 4331-1 #### GREGORIA GOFF ([id number]) [facility] ([facility]) [address] [place] [address] 98306 NON HDL CHOLESTEROL 109 mg/dL Normal 0-149 [facility] Comment on above: Result Comment: Age Desirable Borderline High High Very High 0-19 Y 0 - 119 120 - 144 >/= 145 >/= 160 20-24 Y 0 - 149 150 - 189 >/= 190 ---- >24 Y 30 mg/dL above LDL Cholesterol goal Performed By: #### 2 4331-1 #### GREGORIA GOFF ([id number]) [facility] ([facility]) [address] [place] [address] 27855 Triglyceride [Mass/Vol] 74 mg/dL Normal 0-149 [facility] Comment on above: Result Comment: Age Desirable Borderline High High Very High 0 D-90 D 19 - 174 ---- ---- ---- 91 D- 9 Y 0 - 74 75 - 99 >/= 100 ---- 10-19 Y 0 - 89 90 - 129 >/= 130 ---- 20-24 Y 0 - 114 115 - 149 >/= 150 ---- >24 Y 0 - 149 150 - 199 200- 499 >/= 500 Venipuncture immediately after or during the administration of Metamizole may lead to falsely low results. Testing should be performed immediately prior to Metamizole dosing. Performed By: #### 2 4331-1 #### GREGORIA GOFF ([id number]) [facility] ([facility]) [address] [place] [address] 21516 BASIC METABOLIC PANELon 06-22 Anion gap [Moles/Vol] 15 mmol/L Normal 10 - 20 [facility] Comment on above: Performed By: #### B MP #### [address] [address] Calcium [Mass/Vol] 9.4 mg/dL Normal 8.6 - 10.3 [facility] Comment on above: Performed By: #### B MP #### [address] [address] Chloride [Moles/Vol] 103 mmol/L Normal 98 - 107 [facility] Comment on above: Performed By: #### B MP #### [address] [address] Creatinine [Mass/Vol] 0.87 mg/dL Normal 0.50 - 1.30 [facility] Comment on above: Performed By: #### B MP #### [address] [address] eGFR MALE >90 Normal >90 [facility] Comment on above: Result Comment: CALC ULATIONS OF ESTIMATED GFR ARE PERFORMED USING THE 2020 CKD-EPI STUDY REFIT EQUATION WITHOUT THE RACE VARIABLE FOR THE IDMS-TRACEABLE CREATININE METHODS. https://jasn.asnjournals.org/content/early/ASN.428158 1241 Performed By: #### B MP #### [address] [address] Glucose [Mass/Vol] 113 mg/dL High 74 - 99 [facility] Comment on above: Performed By: #### B MP #### [address] [address] HCO3 (Bld) [Moles/Vol] 24 mmol/L Normal 21 - 32 [facility] Comment on above: Performed By: #### B MP #### [address] [address] Potassium [Moles/Vol] 4.0 mmol/L Normal 3.5 - 5.3 [facility] Comment on above: Performed By: #### B MP #### [address] [address] Sodium [Moles/Vol] 138 mmol/L Normal 136 - 145 [facility] Comment on above: Performed By: #### B MP #### [address] [address] Urea nitrogen [Mass/Vol] 14 mg/dL Normal 6 - 23 [facility] Comment on above: Performed By: #### B MP #### [address] [address] HEPATIC FUNCTION PANELon Albumin [Mass/Vol] 4.5 g/dL Normal 3.4 - 5.0 [facility] Comment on above: Performed By: #### H EPFP #### [address] [address] ALP [Catalytic activity/Vol] 85 U/L Normal 33 - 120 [facility] Comment on above: Performed By: #### H EPFP #### [address] [address] ALT [Catalytic activity/Vol] 73 U/L High 10 - 52 [facility] Comment on above: Result Comment: Zita ents treated with Sulfasalazine may generate falsely decreased results for ALT. Performed By: #### H EPFP #### [place] [id number] AST [Catalytic activity/Vol] 73 U/L High 9 - 39 [facility] Comment on above: Performed By: #### H EPFP #### [address] [address] Bilirubin [Mass/Vol] 0.7 mg/dL Normal 0.0 - 1.2 [facility] Comment on above: Performed By: #### H EPFP #### [address] [address] Bilirubin.indirect [Mass/Vol] 0.2 mg/dL Normal 0.0 - 0.3 [facility] Comment on above: Performed By: #### H EPFP #### [address] [address] Protein [Mass/Vol] 7.1 g/dL Normal 6.4 - 8.2 [facility] Comment on above: Performed By: #### H EPFP #### [address] [address] Lab Specimen Source Normal [facility] Comment on above: Performed By: #### H EPFP #### [place] [address] Performed By: #### B MP #### [place] [id number] Echocardiogramon 05-04-2023 Echocardiography [facility] nter [address] [place], [place] [id number] [phone], TRANSTHORACIC ECHOCARDIOGRAM REPORT Patient Name: NORBERTO Basurto ANDREASSHRAVANBRIANNETOBY Reading Physician: [id number] Ludwig Mijares MD Study Date: 05/04/2023 Referring Physician: Rajinder Osei MD MRN/PID: [id number] PCP: Accession/Order#: [id number] Department Location: [facility] Echo Lab Date of : 1965 Fellow: Gender: M Nurse: Admit Date: Division Roadmaster: GRAHAM Leyva RVT Admission Status: Outpatient Additional Staff: Height: 177.80 cm CC Report to: Weight: 90.72 kg Study Type: Echocardiogram BSA: 2.09 m2 Blood Pressure: 136 /74 mmHg Diagnosis/ICD: R06.02-Shortness of breath Indication: Dyspnea Procedure/CPT: Echo Complete w Full Doppler-[id number] Patient History: Pertinent History: No previous echo. Study Detail: The following Echo studies were performed: 2D, M-Mode, Doppler and color flow. A bubble study was not performed. The patient was awake. PHYSICIAN INTERPRETATION: Left Ventricle: Left ventricular systolic function is normal, with an estimated ejection fraction of 55-60%. There are no regional wall motion abnormalities. The left ventricular cavity size is normal. Spectral Doppler shows an impaired relaxation pattern of left ventricular diastolic filling. Left Atrium: The left atrium is normal in size. Right Ventricle: The right ventricle is normal in size. There is normal right ventricular global systolic function. Right Atrium: The right atrium is normal in size. Aortic Valve: The aortic valve is trileaflet. There is no evidence of aortic valve regurgitation. The peak instantaneous gradient of the aortic valve is 6.9 mmHg. The mean gradient of the aortic valve is 3.0 mmHg. Mitral Valve: The mitral valve is normal in structure. There is no evidence of mitral valve regurgitation. Tricuspid Valve: The tricuspid valve is structurally normal. There is trace tricuspid regurgitation. Pulmonic Valve: The pulmonic valve is not well visualized. There is no indication of pulmonic valve regurgitation. Pericardium: There is no pericardial effusion noted. Aorta: The aortic root is abnormal. Mildly ectatic aortic root: Measurement at the sinotubular junction is 3.9 cm. CONCLUSIONS: 1. Left ventricular systolic function is normal with a 55-60% estimated ejection fraction. 2. Spectral Doppler shows an impaired relaxation pattern of left ventricular diastolic filling. 3. Mildly ectatic aortic root: Measurement at the sinotubular junction is 3.9 cm. QUANTITATIVE DATA SUMMARY: 2D MEASUREMENTS: Normal Ranges: Ao Root d: 3.90 cm (2.0-3.7cm) LAs: 2.40 cm (2.7-4.0cm) IVSd: 1.19 cm (0.6-1.1cm) LVPWd: 1.22 cm (0.6-1.1cm) LVIDd: 4.21 cm (3.9-5.9cm) LVIDs: 3.10 cm LV Mass Index: 86.2 g/m2 LV % FS 26.4 % LA VOLUME: Normal Ranges: LA Vol A4C: 33.7 ml (22+/-6mL/m2) LA Vol A2C: 55.9 ml LA Vol BP: 43.7 ml LA Vol Index A4C: 16.1ml/m2 LA Vol Index A2C: 26.8 ml/m2 LA Vol Index BP: 21.0 ml/m2 LA Area A4C: 12.4 cm2 LA Area A2C: 16.1 cm2 LA Major Otoe A4C: 3.9 cm LA Major Otoe A2C: 3.9 cm LA Volume Index: 25.4 ml/m2 LA Vol A4C: 30.3 ml LA Vol A2C: 53.0 ml M-MODE MEASUREMENTS: Normal Ranges: AoV Exc: 1.80 cm (1.5-2.5cm) AORTA MEASUREMENTS: Normal Ranges: AoV Exc: 1.80 cm (1.5-2.5cm) LV SYSTOLIC FUNCTION BY 2D PLANIMETRY (MOD): Normal Ranges: EF-A4C View: 56.9 % (>=55%) EF-A2C View: 53.9 % EF-Biplane: 54.5 % LV DIASTOLIC FUNCTION: Normal Ranges: MV Peak E: 0.57 m/s (0.7-1.2 m/s) MV Peak A: 0.89 m/s (0.42-0.7 m/s) E/A Ratio: 0.64 (1.0-2.2) MV e' 0.05 m/s (>8.0) MV lateral e' 0.10 m/s MV medial e' 0.06 m/s E/e' Ratio: 11.36 (<8.0) MITRAL VALVE: Normal Ranges: MV DT: 239 msec (150-240msec) AORTIC VALVE: Normal Ranges: AoV Vmax: 1.31 m/s (<=1.7m/s) AoV Peak P.9 mmHg (<20mmHg) AoV Mean P.0 mmHg (1.7-11.5mmHg) LVOT Max Neftali: 0.85 m/s (<=1.1m/s) AoV VTI: 24.20 cm (18-25cm) LVOT VTI: 19.50 cm LVOT Diameter: 2.30 cm (1.8-2.4cm) AoV Area, VTI: 3.35 cm2 (2.5-5.5cm2) AoV Area,Vmax: 2.70 cm2 (2.5-4.5cm2) AoV Dimensionless Index: 0.81 RIGHT VENTRICLE: RV 1 3.56 cm RV 2 2.24 cm RV 3 6.65 cm RV Basal 3.56 cm RV Mid 2.24 cm RV Major 6.6 cm TAPSE: 22.6 mm TRICUSPID VALVE/RVSP: Normal Ranges: Peak TR Velocity: 2.25 m/s RV Syst Pressure: 23.2 mmHg (< 30mmHg) PULMONIC VALVE: Normal Ranges: PV Accel Time: 85 msec (>120ms) PV Max Neftali: 0.8 m/s (0.6-0.9m/s) PV Max P.7 mmHg [id number] Ludwig Mijares MD Electronically signed on 05/05/2023 at 11:29:16 AM Final Normal [facility] BASIC METABOLIC PANELon 06- Anion gap [Moles/Vol] 15 mmol/L Normal 10 - 20 [facility] Comment on above: Performed By: #### B MP #### [address] [address] Calcium [Mass/Vol] 9.3 mg/dL Normal 8.6 - 10.3 [facility] Comment on above: Performed By: #### B MP #### [address] [address] Chloride [Moles/Vol] 99 mmol/L Normal 98 - 107 [facility] Comment on above: Performed By: #### B MP #### [address] [address] Creatinine [Mass/Vol] 0.88 mg/dL Normal 0.50 - 1.30 [facility] Comment on above: Performed By: #### B MP #### [address] [address] eGFR MALE >90 Normal >90 [facility] Comment on above: Result Comment: CALC ULATIONS OF ESTIMATED GFR ARE PERFORMED USING THE 2020 CKD-EPI STUDY REFIT EQUATION WITHOUT THE RACE VARIABLE FOR THE IDMS-TRACEABLE CREATININE METHODS. https://jasn.asnjournals.org/content/early//ASN.584871 8745 Performed By: #### B MP #### [address] [address] Glucose [Mass/Vol] 117 mg/dL High 74 - 99 [facility] Comment on above: Performed By: #### B MP #### [address] [address] HCO3 (Bld) [Moles/Vol] 28 mmol/L Normal 21 - 32 [facility] Comment on above: Performed By: #### B MP #### [address] [address] Potassium [Moles/Vol] 3.9 mmol/L Normal 3.5 - 5.3 [facility] Comment on above: Performed By: #### B MP #### [address] [address] Sodium [Moles/Vol] 138 mmol/L Normal 136 - 145 [facility] Comment on above: Performed By: #### B MP #### [address] [address] Urea nitrogen [Mass/Vol] 16 mg/dL Normal 6 - 23 [facility] Comment on above: Performed By: #### B MP #### [address] [address] Lab Specimen Source Normal [facility] Comment on above: Performed By: #### B MP #### [place] [address] Performed By: #### C BCDF #### [place] [id number] CBC AND DIFFERENTIALon 05-03 % AUTOMATED IMMATURE GRAN 0.5 % Normal 0.0 - 0.9 [facility] Comment on above: Result Comment: Alice ture Granulocyte Count (IG) includes promyelocytes, myelocytes and metamyelocytes but does not include bands. Percent differential counts (%) should be interpreted in the context of the absolute cell counts (cells/L). Performed By: #### C BCDF #### [place] [address] Basophils (Bld) [#/Vol] 0.05 10*3/uL Normal 0.00 - 0.10 [facility] Comment on above: Performed By: #### C BCDF #### [address] [address] Basophils/100 WBC (Bld) 0.6 % Normal 0.0 - 2.0 [facility] Comment on above: Performed By: #### C BCDF #### [address] [address] Eosinophils (Bld) [#/Vol] 0.29 10*3/uL Normal 0.00 - 0.70 [facility] Comment on above: Performed By: #### C BCDF #### [address] [address] Eosinophils/100 WBC (Bld) 3.7 % Normal 0.0 - 6.0 [facility] Comment on above: Performed By: #### C BCDF #### [address] [address] Erythrocyte distribution width (RBC) [Ratio] 12.5 % Normal 11.5 - 14.5 [facility] Comment on above: Performed By: #### C BCDF #### [address] [address] Hematocrit (Bld) [Volume fraction] 44.5 % Normal 41.0 - 52.0 [facility] Comment on above: Performed By: #### C BCDF #### [address] [address] Hemoglobin (Bld) [Mass/Vol] 14.7 g/dL Normal 13.5 - 17.5 [facility] Comment on above: Performed By: #### C BCDF #### [address] [address] Lymphocytes (Bld) [#/Vol] 1.63 10*3/uL Normal 1.20 - 4.80 [facility] Comment on above: Performed By: #### C BCDF #### [address] [address] Lymphocytes/100 WBC (Bld) 20.6 % Normal 13.0 - 44.0 [facility] Comment on above: Performed By: #### C BCDF #### [address] [address] MCHC (RBC) [Mass/Vol] 33.0 g/dL Normal 32.0 - 36.0 [facility] Comment on above: Performed By: #### C BCDF #### [address] [address] MCV (RBC) [Entitic vol] 97 fL Normal 80 - 100 [facility] Comment on above: Performed By: #### C BCDF #### [address] [address] Monocytes (Bld) [#/Vol] 0.78 10*3/uL Normal 0.10 - 1.00 [facility] Comment on above: Performed By: #### C BCDF #### [address] [address] Monocytes/100 WBC (Bld) 9.8 % Normal 2.0 - 10.0 [facility] Comment on above: Performed By: #### C BCDF #### [address] [address] Neutrophils (Bld) [#/Vol] 5.14 10*3/uL Normal 1.20 - 7.70 [facility] Comment on above: Result Comment: Perc ent differential counts (%) should be interpreted in the context of the absolute cell counts (cells/L). Performed By: #### C BCDF #### [address] [address] Neutrophils/100 WBC (Bld) 64.8 % Normal 40.0 - 80.0 [facility] Comment on above: Performed By: #### C BCDF #### [address] [address] Platelets (Bld) [#/Vol] 318 10*3/uL Normal 150 - 450 [facility] Comment on above: Performed By: #### C BCDF #### [address] [address] RBC 4.61 x10E12/L Normal 4.50 - 5.90 [facility] Comment on above: Performed By: #### C BCDF #### [address] [address] WBC (Bld) [#/Vol] 7.9 10*3/uL Normal 4.4 - 11.3 [facility] Comment on above: Performed By: #### C BCDF #### [address] [address] CHEST 2 VIEW PA AND LATon CHEST 2 VIEW PA AND LAT Patient Name: NORBERTO MULLINS STUDY: CHEST 2 VIEW PA AND LAT; 05/03/2023 7:08 am INDICATION: shortness of breath. COMPARISON: 01/12/2016 ACCESSION NUMBER(S): [id number] ORDERING CLINICIAN: NITZA OSEI FINDINGS: CHEST PA, LATERAL CARDIOMEDIASTINAL SILHOUETTE: Cardiomediastinal silhouette is normal in size and configuration. LUNGS: Lungs are clear. ABDOMEN: No remarkable upper abdominal findings. BONES: No acute osseous changes. IMPRESSION: 1. No evidence of acute cardiopulmonary process. NO CHANGE FROM 01/12/2016 Electronically signed by: BEATA PERSAUD MD [facility] Office Visit (Family Geetha quarles)on 04-21-2022 Follow-up visit Diagnoses/Problems Acute foot pain, left (729.5) (M79.672) Orders Acute foot pain, left Xray Foot Complete Min 3 View; Status:Active; Requested for:21Apr2022; Laterality : Left Radiologist to Determine Optimal Study : Y What are the patient's signs and symptoms? : Log of wood fell on foot about 2 months ago. Pain not resolving since then. Chief Complaint pt. needs [facility] paperwork filled out. History of Present Illness Patient is here with request to fill his [facility] paperwork. Patient has history of degenerative arthritis of lumbar spine, bilateral shoulder pain, fracture of left index finger, and foot pain as well. Requesting to fill the [facility] paperwork as employer is requiring it now again. Most of his leave of absence or around weekends so employer was not happy with this. However patient reports that there were days that point in the middle of the weekend as well. Reports that the pain symptoms in his back and shoulders have been progressively worsening. He has been working with an orthopedic surgeon for his shoulder pain. He has been receiving injections in his shoulder joint. However last time when he went he received his bill as the injection was performed under imaging which was expensive. He is in the process of finding a new orthopedic surgeon. Reports that his last lumbar spine x-ray is in 2008. May need to repeat it soon. Additionally, patient has had an accident where he dropped a log of wood on his left foot. This caused severe swelling and bruising in his left foot. This was about 2 months ago. He was ambulating with pain previously. However despite waiting for 2 months his pain is not completely resolved. He has applied cold and warm compresses initially. Currently not applying anything. Noticed that swelling is persistent as well. Has not been evaluated in the past. Plan: Ordering an x-ray for further evaluation. Unable to comment on pattern with which the symptoms might arise. Patient reports that he is being absent from work only when he has significant flareups. Fill his [facility] paperwork to the best of my knowledge. Follow-up in 6 months for routine health checkup. Review of Systems ROS negative except discussed above in HPI. Active Problems Bilateral shoulder pain (719.41) (M25.511,M25.512) Chronic low back pain (724.2,338.29) (M54.50,G89.29) Closed displaced fracture of middle phalanx of left index finger, initial encounter (816.01) (S62.621A) Closed fracture of middle phalanx of left index finger with routine healing (V54.19) (S62.621D) Degenerative arthritis of lumbar spine (721.3) (M47.816) Elevated BP without diagnosis of hypertension (796.2) (R03.0) Encounter for immunization (V03.89) (Z23) Finger pain (729.5) (M79.646) Post-nasal drip (784.91) (R09.82) Sore throat (462) (J02.9) Surgical History History of Appendectomy History of Foot surgery History of Tonsillectomy with adenoidectomy Family History No pertinent family history No pertinent family history No pertinent family history Social History Current every day smoker (305.1) (F17.200) No advance directives (V49.89) (Z78.9) No recent foreign travel Allergies No Known Allergies Updated By: Mala Calderon; 03/14/2021 8:03:51 AM Current Meds Medication NameInstructionReason Melatonin CAPS Vitals Vital Signs Recorded: [id number] 09:33AM Heart Rate80 Vlgaxfbj133 Ezzzsjkhu58 Height5 ft 10 in Vokuqd616 lb 15.70 oz BMI Qdrniqmijq68.26 kg/m2 BSA Calculated2.01 Tobacco Usea) Yes Patient encouraged to stop using tobacco productsYes Physical Exam Constitutional: Alert and in no acute distress. Well developed, well nourished. Mild tenderness in the mid foot area on the dorsal surface. Is able to ambulate by himself. No erythema noticed. Mild swelling observed. Normal range of motion at the toes and ankle. 'Scores and Scales' Signatures Electronically signed by : Rajinder Osei MD MPH; Apr 21 2022 10:11AM EST (Author) Normal [facility] Radiologyon 04-21-2022 XR Foot 3 Views Normal Cara ko [facility] Work Phone: Tobacco Screening.on 022 Tobacco use status CPHS a) Yes [facility] Work Phone: Tobacco Screening. Yes Hal mao [facility] Work Phone: Office Visit (Family Geetha quarles)on 10-13-2021 Follow-up visit Chief Complaint needs fmla paperwork filled out due to shift change. History of Present Illness Patient is here for completing paperwork for his work. He has FMLA paperwork which he limits his number of hours of work. He reports that he is potentially going to a different schedule soon in his workplace requires him to get this filled. Paperwork filled. Follow up as needed. Review of Systems ROS negative except discussed above in HPI. Active Problems Bilateral shoulder pain (719.41) (M25.511,M25.512) Chronic low back pain (724.2,338.29) (M54.50,G89.29) Closed displaced fracture of middle phalanx of left index finger, initial encounter (816.01) (S62.621A) Closed fracture of middle phalanx of left index finger with routine healing (V54.19) (S62.621D) Degenerative arthritis of lumbar spine (721.3) (M47.816) Elevated BP without diagnosis of hypertension (796.2) (R03.0) Encounter for immunization (V03.89) (Z23) Finger pain (729.5) (M79.646) Post-nasal drip (784.91) (R09.82) Sore throat (462) (J02.9) Surgical History History of Appendectomy History of Foot surgery History of Tonsillectomy with adenoidectomy Family History No pertinent family history No pertinent family history No pertinent family history Social History Current every day smoker (305.1) (F17.200) No advance directives (V49.89) (Z78.9) No recent foreign travel Allergies No Known Allergies Updated By: Mala Calderon; 03/14/2021 8:03:51 AM Current Meds Medication NameInstructionReason No Reported Medications Vitals Vital Signs Recorded: 13Oct2021 04:07PM Heart Rate92 Iketlpjr865 Ugtfnfjzb49 Height5 ft 10 in Uvnzvr408 lb 3 oz BMI Uoioxtqmfz49.15 kg/m2 BSA Calculated2.07 Tobacco Usea) Yes Patient encouraged to stop using tobacco productsYes 'Scores and Scales' Signatures Electronically signed by : Rajinder Osei MD MPH; Oct 19 2021 9:15PM EST (Author) Normal [facility] Tobacco Screening.on 021 Tobacco use status CPHS a) Yes -[facility] Work Phone: Tobacco Screening. Yes [facility] Work Phone: Initial Visit (Orthopaedic S urgery)on 07-29-2021 Initial Visit (Orthopaedic Surgery) Diagnoses/Problems Assessed Closed fracture of middle phalanx of left index finger with routine healing (V54.19) (I10.194Z) Provider Impressions Assessment?fracture of the middle phalanx of the left index finger Plan?patient is continue to improve his range of motion. He does have some post fracture changes including a swan-neck deformity as well as some stiffness in the PIP joint he also appears to maybe have a ganglion cyst in one of his flexor pulleys on the volar aspect of the finger. We did discuss if the volar ganglion becomes symptomatic we can excise it but otherwise I would just continue to manage his symptoms conservatively and continue to work on range of motion of okay with him trying to go back to work next week on Wednesday This note has been created with voice recognition software. Please be aware that there may be grammatical or contextual errors due to the use of the software. Chief Complaint Patient is here for 3 wk f/u for left index finger fix..still has some swelling..Pain scale today is 3/10.. History of Present Illness Patient is a pleasant 56-year-old male who presents today in follow-up with regards to his middle phalanx fracture of the left index finger. He is continue with his occupational therapy and home exercises improved range of motion still does have some stiffness and some discomfort as well as a palpable mass in the flexion crease of his PIP joint. Review of Systems Constitutional: no fever, no chills, not feeling tired, no recent weight gain and no recent weight loss. ENT: no nosebleeds. Cardiovascular: no chest pain. Respiratory: no shortness of breath and no cough. Gastrointestinal: no abdominal pain, no nausea, no diarrhea and no vomiting. Musculoskeletal: no arthralgias and as noted in HPI. Integumentary: no rashes and no skin wound. Neurological: no headache. Psychiatric: no depression and no sleep disturbances. Endocrine: no muscle cramps. Hematologic/Lymphatic: swollen glands, but no tendency for easy bruising. Active Problems Problems Bilateral shoulder pain (719.41) (M25.511,M25.512) Chronic low back pain (724.2,338.29) (M54.5,G89.29) Closed displaced fracture of middle phalanx of left index finger, initial encounter (816.01) (S62.621A) Closed fracture of middle phalanx of left index finger with routine healing (V54.19) (S62.621D) Degenerative arthritis of lumbar spine (721.3) (M47.816) Elevated BP without diagnosis of hypertension (796.2) (R03.0) Encounter for immunization (V03.89) (Z23) Finger pain (729.5) (M79.646) Post-nasal drip (784.91) (R09.82) Sore throat (462) (J02.9) Surgical History Problems History of Appendectomy History of Foot surgery History of Tonsillectomy with adenoidectomy Family History Mother No pertinent family history Father No pertinent family history Sibling No pertinent family history Social History Problems Current every day smoker (305.1) (F17.200) No advance directives (V49.89) (Z78.9) No recent foreign travel Allergies No Known Allergies Updated By: Mala Calderon; 03/14/2021 8:03:51 AM Current Meds Medication NameInstruction No Reported Medications Vitals Vital Signs Recorded: 29Jul2021 01:54PM Ovxbxtxtxrh44.8 F Rvkoazvl994 Fetuupazz64 Height5 ft 10 in Fpkeny297 lb BMI Gzkjwbcsbw90.98 kg/m2 BSA Calculated2.06 Tobacco Usea) Yes Patient encouraged to stop using tobacco productsYes Fall Screeninga) No falls within the last year Physical Exam Alert and Oriented x 3 Patient resting comfortably in the exam room Normocephalic atraumatic extraocular movements intact mucous membranes moist warm well perfused extremities nonlabored breathing appropriate mood and affect no evidence of lymphedema Left hand Well-healed laceration on the long finger and the index finger no signs of erythema drainage or infection there is significant stiffness in the MCP PIP and DIP joint of the index finger there is near full range of motion of the long finger. Brisk cap refill palpable pulses intact motor and sensory in all distributions essentially no flexion at the joints of the index finger slight swan-neck deformity there is a palpable mass subcutaneously in the flexion crease of the PIP joint of the index finger there is no full range of motion of the MCP joint the DIP joint does lack 5 degrees of terminal extension but has flexion approximately 40 degrees the PIP joint has full extension but only flexion approximately 30 degrees Results/Data Xray Hand 2 [id number] 10:16Suzie Purdy Test NameResultFlagReference Xray Hand 2 View(Report) FINAL REPORT Interpreted by: EUGENIO ROSE KRISHNA, MD 05/03/21 18:38 Patient Name: NORBERTO MULLINS STUDY: Left hand 2 views. INDICATION: Left finger fracture. COMPARISON: 03/07/2021. ACCESSION NUMBER(S): [id number] ORDERING CLINICIAN: SUZIE CHAUDHARI FINDINGS: Healing nondisplaced oblique 2nd middle phalanx fracture noted wi (more content not included)... Normal [facility] OT Progress Noteon OT Progress Note Therapy Diagnosis Assessed Closed fracture of middle phalanx of left index finger with routine healing (V54.19) (X65.436K) Plan Goals: Goals set and discussed today. LTG: Pt will demonstrate improved functional independence at home by a decreased DASH score by 5%. 07/24/21: Progressing (<4.55%) LTG: Pt will demo improved LUE manager hi strength by 10# for improved sustained grasp on objects during IADLS/ADLs/work tasks such as vacuuming and pulling clutch on motorcycle. 07/24/21: MET (>12#) LTG: Pt will demo improved AROM L D2 MCP extension by 10' for improved functional use of LUE during daily home and work tasks. 07/24/21: Progressing (>4') LTG: Pt will demo improved AROM L D2 PIP extension/flexion by 8/20' respectively for improved functional use of LUE during daily home and work tasks. 07/24/21: Progressing, increased 30' extension, decreased 6' flexion, continue goal) STG: Pt will demo improved AROM L D2 DIP extension by 8' for improved functional use of LUE during daily home and work tasks. 07/24/21: Progressing (>2') STG: Pt will demo improved AROM L D2 DIP flexion by 15' for improved functional use of LUE during daily home and work tasks. 07/24/21: Not Met (<1', continue goal) STG: Pt will demo improved AROM L D3 DIP flexion by 10' for improved functional use of LUE during daily home and work tasks. 07/24/21: Progressing (>2') STG: Pt will demonstrate good carryover of HEP for ROM, strengthening and edema management in order to improve functional independence at home/work. 07/24/21: Progressing (Pt with good carryover of HEP, additional tendon glides and upgraded putty HEP added at RA, continue goal) Motor Function/Control/Tone: Intervention plan include: electrical stimulation , paraffin , ADLs, edema control , education/instruction , home program , IADLs, manual therapy , therapeutic activities and therapeutic exercises. Frequency and duration: 2 time(s) a week, for 4 weeks, for 8 visits . pending patient's insurance approval. Potential to achieve rehab goals is good. Progress with POC, as tolerated. Assessment Patient was able to demonstrated/taught back good understanding of personalized exercise program as verbalized, demonstrated and/or provided in printed format. Reassessment completed on pt this date to assess pt's progress made towards established goals. Pt without pain with ROM/MMT, and reported upgraded purple putty felt much more resistive. Pt educated that still has baker resistance blue putty at home if needs to use on more painful/stiff days. Pt increased L manager hi strength and decreased DASH score supporting his increased independence in daily tasks including cutting wood and riding his motorcycle. Pt increased in AROM D2 MCP ext, D2 PIP ext, D2 DIP extension, and D3 DIP flexion. Pt presents with continued edema/tightness in joints of D2-3 on L hand. Pt tolerated tendon glides well this date, and educated on completion at home in additional to putty and PROM HEP. Pt encouraged to use blunt end of butter knife at home for continued IASTM. Plan for future sessions includes more aggressive scar and edema management. Pt would benefit from continued OT intervention to increase ROM in L D2-3 along with increased strength to maximize independence in daily tasks for higher quality of life. Patient was able to complete today's treatment with some difficulty. Adult Risk Screening Initial Fall Risk Screening: NORBERTO has not fallen in the last 6 months. Pain Scale: On a scale of 0 to 10, the patient rates the pain at 0. Insurance Insurance reviewed Visit number: 5 [place] ([place] on 07/24/21) 03/30 POC 5 INS Onset Date: 2020 Subjective Patient reports:. Pt denying pain this date, reporting some soreness in R D2. He reports he does not feel he is gaining much ROM and that when he doesn't CHEN wrap D2, he has a lot of residual swelling. Pt has f/u appt with Dr. Chaudhari 07/29/21. Pt reported is able to complete his daily tasks, and is now able to pull the clutch on his motorcycle. OT student, Ayaka Fajardo, completing full reassessment under direct supervision of GREGORIO Huerta. Home program performing as directed: Yes. Precautions: none Fall Risk: none Treatment Time in clinic started at 1301 pm Time in clinic ended at 1329 pm Total time in clinic is 28 minutes. Total timed code time is 27 minutes. Therapeutic exercise (49210): timed minutes 27 . [id number] Pt completed updated quickDASH for reassessment. L MIKALA measurement taken. AROM measurements taken for L D2 MCP ext, D2 PIP ext/flex, D2 DIP ext/flex, and D3 DIP flex. Pt upgraded to purple theraputty for HEP use, pt completing x10 reps composite flexion of digiits of L hand. L green putty resistive sustained flexion of D2 in composite flexion. L hand tendon glides x10 reps total. 'Scores and Scales' Signatures Electronically signed by : Naty Fontaine/ROMERO; Jul 24 2021 1:39PM EST (Author) Electronically signed by : GREGORIO Huerta; (more content not included)... Normal [facility] Therapy Re-eval Noteon 07-24 Therapy Re-eval Note Therapy Diagnosis Assessed Closed fracture of middle phalanx of left index finger with routine healing (V54.19) (Q10.654R) Plan Goals: Goals set and discussed today. LTG: Pt will demonstrate improved functional independence at home by a decreased DASH score by 5%. 07/24/21: Progressing (<4.55%) LTG: Pt will demo improved LUE manager hi strength by 10# for improved sustained grasp on objects during IADLS/ADLs/work tasks such as vacuuming and pulling clutch on motorcycle. 07/24/21: MET (>12#) LTG: Pt will demo improved AROM L D2 MCP extension by 10' for improved functional use of LUE during daily home and work tasks. 07/24/21: Progressing (>4') LTG: Pt will demo improved AROM L D2 PIP extension/flexion by 8/20' respectively for improved functional use of LUE during daily home and work tasks. 07/24/21: Progressing, increased 30' extension, decreased 6' flexion, continue goal) STG: Pt will demo improved AROM L D2 DIP extension by 8' for improved functional use of LUE during daily home and work tasks. 07/24/21: Progressing (>2') STG: Pt will demo improved AROM L D2 DIP flexion by 15' for improved functional use of LUE during daily home and work tasks. 07/24/21: Not Met (<1', continue goal) STG: Pt will demo improved AROM L D3 DIP flexion by 10' for improved functional use of LUE during daily home and work tasks. 07/24/21: Progressing (>2') STG: Pt will demonstrate good carryover of HEP for ROM, strengthening and edema management in order to improve functional independence at home/work. 07/24/21: Progressing (Pt with good carryover of HEP, additional tendon glides and upgraded putty HEP added at RA, continue goal) Motor Function/Control/Tone: Intervention plan include: electrical stimulation , paraffin , ADLs, edema control , education/instruction , home program , IADLs, manual therapy , therapeutic activities and therapeutic exercises. Frequency and duration: 2 time(s) a week, for 4 weeks, for 8 visits . pending patient's insurance approval. Potential to achieve rehab goals is good. Progress with POC, as tolerated. Assessment Patient was able to demonstrated/taught back good understanding of personalized exercise program as verbalized, demonstrated and/or provided in printed format. Reassessment completed on pt this date to assess pt's progress made towards established goals. Pt without pain with ROM/MMT, and reported upgraded purple putty felt much more resistive. Pt educated that still has baker resistance blue putty at home if needs to use on more painful/stiff days. Pt increased L manager hi strength and decreased DASH score supporting his increased independence in daily tasks including cutting wood and riding his motorcycle. Pt increased in AROM D2 MCP ext, D2 PIP ext, D2 DIP extension, and D3 DIP flexion. Pt presents with continued edema/tightness in joints of D2-3 on L hand. Pt tolerated tendon glides well this date, and educated on completion at home in additional to putty and PROM HEP. Pt encouraged to use blunt end of butter knife at home for continued IASTM. Plan for future sessions includes more aggressive scar and edema management. Pt would benefit from continued OT intervention to increase ROM in L D2-3 along with increased strength to maximize independence in daily tasks for higher quality of life. Patient was able to complete today's treatment with some difficulty. Adult Risk Screening Initial Fall Risk Screening: NORBERTO has not fallen in the last 6 months. Pain Scale: On a scale of 0 to 10, the patient rates the pain at 0. Insurance Insurance reviewed Visit number: 5 [place] ([place] on 07/24/21) 03/30 POC 5 INS Onset Date: 2020 Subjective Patient reports:. Pt denying pain this date, reporting some soreness in R D2. He reports he does not feel he is gaining much ROM and that when he doesn't CHEN wrap D2, he has a lot of residual swelling. Pt has f/u appt with Dr. Chaudhari 07/29/21. Pt reported is able to complete his daily tasks, and is now able to pull the clutch on his motorcycle. OT student, Ayaka Fajardo, completing full reassessment under direct supervision of GABRIELA Huerta/Sherine. Home program performing as directed: Yes. Precautions: none Fall Risk: none Treatment Time in clinic started at 1301 pm Time in clinic ended at 1329 pm Total time in clinic is 28 minutes. Total timed code time is 27 minutes. Therapeutic exercise (87571): timed minutes 27 . 0175-9000 Pt completed updated quickDASH for reassessment. L MIKALA measurement taken. AROM measurements taken for L D2 MCP ext, D2 PIP ext/flex, D2 DIP ext/flex, and D3 DIP flex. Pt upgraded to purple theraputty for HEP use, pt completing x10 reps composite flexion of digiits of L hand. L green putty resistive sustained flexion of D2 in composite flexion. L hand tendon glides x10 reps total. 'Scores and Scales' Signatures Electronically signed by : Naty Fontaine/OT; Jul 24 2021 1:39PM EST (Author) Electronically signed by : Dayan Haji OTR/L; (more content not included)... Normal Nonlinear Dynamics OT Progress Noteon 1 OT Progress Note Therapy Diagnosis Assessed Closed displaced fracture of middle phalanx of left index finger, initial encounter (816.01) (S62.621A) Closed fracture of middle phalanx of left index finger with routine healing (V54.19) (S62.621D) Finger pain (729.5) (M79.646) Plan Goals: Goals set and discussed today. LTG: Pt will demonstrate improved functional independence at home by a decreased DASH score by 5%. LTG: Pt will demo improved LUE manager hi strength by 10# for improved sustained grasp on objects during IADLS/ADLs/work tasks such as vacuuming and pulling clutch on motorcycle. LTG: Pt will demo improved AROM L D2 MCP extension by 10' for improved functional use of LUE during daily home and work tasks. LTG: Pt will demo improved AROM L D2 PIP extension/flexion by 8/20' respectively for improved functional use of LUE during daily home and work tasks. STG: Pt will demo improved AROM L D2 DIP extension by 8' for improved functional use of LUE during daily home and work tasks. STG: Pt will demo improved AROM L D2 DIP flexion by 15' for improved functional use of LUE during daily home and work tasks. STG: Pt will demo improved AROM L D3 DIP flexion by 10' for improved functional use of LUE during daily home and work tasks. STG: Pt will demonstrate good carryover of HEP for ROM, strengthening and edema management in order to improve functional independence at home/work. Motor Function/Control/Tone: Potential to achieve rehab goals is good. Progress with POC, as tolerated. Assessment Pt did have improved L D2 flex w/surinamese e-stim. Pt reported pain increased to an 8/10 pain w/iastm over scar. He denied pain at the end of the session. Patient was able to complete today's treatment with some difficulty. Adult Risk Screening Initial Fall Risk Screening: NORBERTO has not fallen in the last 6 months. Pain Scale: On a scale of 0 to 10, the patient rates the pain at 0. Insurance Insurance reviewed Visit number: 4 [place] 02/28 POC 4 [place] Onset Date: 2020 Subjective Patient reports:. Pt denies pain at rest and has some pain w/movement. Pt reports concern w/lack of motion and states I just can't keep the swelling down. Precautions: none Fall Risk: none Treatment Time in clinic started at 1347 pm Time in clinic ended at 1430 pm Total time in clinic is 43 minutes. Total timed code time is 41 minutes. Modalities: untimed minutes 15 . 7208-4308 8 dips of paraffin on L hand 1549-1715 Malian e-stim black distal, red proximal on distal volar forearm, 11 intensity, 10/20. Therapeutic exercise (06269): timed minutes 41 . 0080-1323 Pt interview while paraffin donned PROM of L D2 post paraffin Instructed pt open/close fist during e-stim, D1 retrograde massage during breaks from ramp of e-stim IASTM HG 9 bevel up narrow end for strumming/framing scar and volar D2 Kinesiotaping on R D2 for edema management. 'Scores and Scales' Signatures Electronically signed by : GILL Cuadra/Sherine; Jul 22 2021 3:40PM EST (Author) Electronically signed by : GREGORIO Huerta; Jul 23 2021 1:47PM EST (Author) Normal Touchworks OT Progress Noteon OT Progress Note Therapy Diagnosis Assessed Closed fracture of middle phalanx of left index finger with routine healing (V54.19) (S62.621D) Finger pain (729.5) (M79.646) Plan Goals: Goals set and discussed today. LTG: Pt will demonstrate improved functional independence at home by a decreased DASH score by 5%. LTG: Pt will demo improved LUE manager hi strength by 10# for improved sustained grasp on objects during IADLS/ADLs/work tasks such as vacuuming and pulling clutch on motorcycle. LTG: Pt will demo improved AROM L D2 MCP extension by 10' for improved functional use of LUE during daily home and work tasks. LTG: Pt will demo improved AROM L D2 PIP extension/flexion by 8/20' respectively for improved functional use of LUE during daily home and work tasks. STG: Pt will demo improved AROM L D2 DIP extension by 8' for improved functional use of LUE during daily home and work tasks. STG: Pt will demo improved AROM L D2 DIP flexion by 15' for improved functional use of LUE during daily home and work tasks. STG: Pt will demo improved AROM L D3 DIP flexion by 10' for improved functional use of LUE during daily home and work tasks. STG: Pt will demonstrate good carryover of HEP for ROM, strengthening and edema management in order to improve functional independence at home/work. Motor Function/Control/Tone: Potential to achieve rehab goals is good. Progress with POC, as tolerated. Assessment Pt reported popping in D2/3 MCP joints w/bead activity but denied pain. Pt rubbing dorsal forearm proximally reporting fatigue. Pt reports making a fist he feels discomfort. He denied pain at rest at the end of the session. Patient was able to complete today's treatment with some difficulty. Adult Risk Screening Initial Fall Risk Screening: NORBERTO has not fallen in the last 6 months. Pain Scale: On a scale of 0 to 10, the patient rates the pain at 0. Insurance Insurance reviewed Visit number: 3 [place] 01/28 POC 3 [place] Onset Date: 2020 Subjective Patient reports:. Pt reports my finger is the sorest it's been from doing putty exercises. He reports he skipped the putty exercises today d/t soreness. Precautions: none Fall Risk: none Treatment Time in clinic started at 1446 pm Time in clinic ended at 1528 pm Total time in clinic is 42 minutes. Total timed code time is 39 minutes. Modalities: untimed minutes 5 . 8871-5783 8 dips of paraffin on L hand/wrist/forearm. Manual Therapy (20582): timed minutes 12 . 5596-4885 Pt interview while paraffin donned L D2 MCP/PIP/DIP flex/ext x5 reps each, AAROM composite flex [id number] Instruction and demo of scar massage w/dowel and dycem. Therapeutic Activity (60903): timed minutes 27 . 1694-5905 L D2 flex/ext to push/pull small velcro dowel on 1 track x3 reps each direction L D2 composite flex to cigar packer and picker 20, 1/2 beads from edge of table to palm and don on string L D2/3 abd/add/ext to remove 20, 1/2 beads from string L mass grasp and short handled english language learner teacher w/10# to cigar packer and picker and transfer 62 MRMT discs from one grid to another using forearm pro/sup . 'Scores and Scales' Signatures Electronically signed by : GILL Cuadra/Sherine; Jul 17 2021 4:26PM EST (Author) Electronically signed by : GABRIELA Huerta/Sherine; Jul 17 2021 5:08PM EST (Author) Normal Nonlinear Dynamics OT Progress Noteon 1 OT Progress Note Therapy Diagnosis Assessed Closed fracture of middle phalanx of left index finger with routine healing (V54.19) (S62.621D) Finger pain (729.5) (M79.646) Plan Goals: Goals set and discussed today. LTG: Pt will demonstrate improved functional independence at home by a decreased DASH score by 5%. LTG: Pt will demo improved LUE manager hi strength by 10# for improved sustained grasp on objects during IADLS/ADLs/work tasks such as vacuuming and pulling clutch on motorcycle. LTG: Pt will demo improved AROM L D2 MCP extension by 10' for improved functional use of LUE during daily home and work tasks. LTG: Pt will demo improved AROM L D2 PIP extension/flexion by 8/20' respectively for improved functional use of LUE during daily home and work tasks. STG: Pt will demo improved AROM L D2 DIP extension by 8' for improved functional use of LUE during daily home and work tasks. STG: Pt will demo improved AROM L D2 DIP flexion by 15' for improved functional use of LUE during daily home and work tasks. STG: Pt will demo improved AROM L D3 DIP flexion by 10' for improved functional use of LUE during daily home and work tasks. STG: Pt will demonstrate good carryover of HEP for ROM, strengthening and edema management in order to improve functional independence at home/work. Motor Function/Control/Tone: Potential to achieve rehab goals is good. Progress with POC, as tolerated. Assessment Pt required cues to decrease pain w/putty and abd exercises. He denied pain at the end of the session. Patient was able to complete today's treatment with some difficulty. Adult Risk Screening Initial Fall Risk Screening: NORBERTO has not fallen in the last 6 months. Pain Scale: On a scale of 0 to 10, the patient rates the pain at 0. Insurance Insurance reviewed Visit number: 2 [place] 12/31 POC 2 [place] Onset Date: 2020 Subjective Patient reports:. Patient denies any pain at rest and has a little bit w/PROM HEP. He expressed that he does not care about the appearance of his scar on his L D3. Precautions: none Fall Risk: none Treatment Time in clinic started at 1415 pm Time in clinic ended at 1500 pm Total time in clinic is 45 minutes. Total timed code time is 42 minutes. Modalities: untimed minutes 5 . 5705-0585 8 dips of paraffin on L hand/wrist x5min. Manual Therapy (91373): timed minutes 24 . 6496-2251 Pt interview while paraffin donned R D2 traction, individual and composite flex PROM, flex and hold [id number] each direction Retrograde massage Pt education on compression sleeves and wrapping techniques to reduce edema. Therapeutic exercise (71911): timed minutes 18 . 6198-2835 After instruction demo'd L hand strengthening HEP w/purple putty [id number] each . 'Scores and Scales' Signatures Electronically signed by : MISTI Cuadra; Jul 15 2021 5:01PM EST (Author) Electronically signed by : GREGORIO Huerta; Jul 16 2021 9:25AM EST (Author) Normal Nonlinear Dynamics OT Initial Evalutationon OT Initial Evalutation Therapy Diagnosis Assessed Closed fracture of middle phalanx of left index finger with routine healing (V54.19) (S62.621D) Plan of Care Goals: Goals set and discussed today. LTG: Pt will demonstrate improved functional independence at home by a decreased DASH score by 5%. LTG: Pt will demo improved LUE manager hi strength by 10# for improved sustained grasp on objects during IADLS/ADLs/work tasks such as vacuuming and pulling clutch on motorcycle. LTG: Pt will demo improved AROM L D2 MCP extension by 10' for improved functional use of LUE during daily home and work tasks. LTG: Pt will demo improved AROM L D2 PIP extension/flexion by 8/20' respectively for improved functional use of LUE during daily home and work tasks. STG: Pt will demo improved AROM L D2 DIP extension by 8' for improved functional use of LUE during daily home and work tasks. STG: Pt will demo improved AROM L D2 DIP flexion by 15' for improved functional use of LUE during daily home and work tasks. STG: Pt will demo improved AROM L D3 DIP flexion by 10' for improved functional use of LUE during daily home and work tasks. STG: Pt will demonstrate good carryover of HEP for ROM, strengthening and edema management in order to improve functional independence at home/work. Motor Function/Control/Tone: Intervention plan include: electrical stimulation , paraffin , ADLs, edema control , education/instruction , IADLs, manual therapy , therapeutic activities and therapeutic exercises . IASTM/scar management/edema management. Frequency and duration: 2 time(s) a week, for 4 weeks, for 8 visits. Potential to achieve rehab goals is good. Plan of care was developed with input and agreement by the patient. Assessment Patient was evaluated today for crush injury L hand causing fx of L index finger. Pt presents with decreased ROM in L index finger especially in flexion. Pt denies pain with palpation or P/AROM, and is developing swan neck deformity in index finger. Attempted to fit pt for oval-eight splint however largest size too small to fit pt comfortably and provide proper support without decreased skin integrity. Pt with increased edema in L D2 PIP and D3 DIP. R manager hi strength 92# which is his dominant hand, with involved L hand strength 78#. Pt comparable skills with FMC/coordination for 9HPT and p<>f translation of pennies between R/L hands. Injury does not hinder pt's FM skills per his report and per testing at [facility]. Pt hypermobile in joints of R hand especially MCPs, with noted limitations in ROM of L hand MCP/PIP/DIP. Pt would benefit from increasing L manager hi strength and ROM of digits to maximize functional independence and use of this hand. Pt provided with PROM HEP with education on frequency of completion, and L D2/3 finger sleeves to assist with edema management. Pt would benefit from regular outpatient OT 2x/week for 4 weeks for a total of 8 visits in order to improve AROM/PROM, strengthening, coordination, scar management, edema management, and activity tolerance to improve functional independence in ADLs/IADLs/work tasks. Level of Complexity: low Problems To Be Addressed: decreased ADL performance, decreased IADL performance, decreased work, decreased knowledge of HEP, scar, decreased ROM/joint mobility and decreased strength. Reason For Visit Initial Evaluation, Evaluation and Treatment. Reason for Referral: Closed fracture of middle phalanx of left index finger with routine healing (Q61.900I). Referred by Dr. Suzie Chaudhari. Orthotic Evms R MIKALA: 92 L MIKALA: 78 R digit AROM: D2: MCP +3/68 PIP 0/90 DIP +4/58 D3: MCP +10/70 PIP 0/87 DIP 0/66 D4: MCP +11/65 PIP -1/90 DIP +2/40 D5: MCP +12/68 PIP -4/83 DIP +2/65 L digit AROM: D2: MCP -12/68 PIP -10/60 DIP -14/31 D3: MCP -2/79 PIP -5/90 DIP +4/49 D4: MCP +6/75 PIP -4/88 DIP +10/50 D5: MCP +10/65 PIP -10/82 DIP +2/60 R9HPT: 23 sec L9HPT: 27 sec Edema: L D2 DIP: 6.5 mm R D2 DIP: 6.5 mm L D2 PIP: 8.3 mm R D2 PIP: 7.8 mm L D3 DIP: 7 mm R D3 DIP: 6.5 mm L D3 PIP: 7.5 mm R D3 PIP: 8 mm QuickDASH: 15.91% . Adult Risk Screening Initial Fall Risk Screening: NORBERTO has not fallen in the last 6 months. Pain Scale: On a scale of 0 to 10, the patient rates the pain at 0. Insurance Insurance reviewed Visit number: 1 [place] 11/30 POC 1 [place] Onset Date: 2020 Subjective Current Episode of Functional Impairment and Pain: Date of onset: 07/03/2021 Patient reports: Pt being seen for initial OT evaluation following crush injury causing fx L index finger, scar from sutures in L D2 and D3. Pt has next f/u with Dr. Chaudhari on 07/18/21. Pt reported has been doing warm soapy soaks of L hand at home, and has noticed a plateau in ROM gained for about week now. Pt denied pain and reported no NANDT, however L index finger feels different than the others. Pt has no scar sensitivity and is R-hand dominant. No restrictions at this time for use of L hand. 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 Normal Touchworks Established Visit (Orthopaed ic Surgery)on 07-03-2021 Established Visit (Orthopaedic Surgery) Diagnoses/Problems Assessed Closed fracture of middle phalanx of left index finger with routine healing (V54.19) (X29.073J) Provider Impressions Assessment?left index finger middle phalanx fracture now with significant stiffness of the index finger Plan?patient continues to be quite stiff with loss of range of motion. He is attempting to do home exercises and work on his range of motion but he continues to be quite limited. I do think we will try some formal occupational therapy to see if this will help improve his range of motion we will see him back in a few weeks to evaluate how the therapy is going we will continue to keep him out of work until he can regain better range of motion This note has been created with voice recognition software. Please be aware that there may be grammatical or contextual errors due to the use of the software. Chief Complaint 1 MO F/U L INDEX FINGER FX. 50% ROM. PAIN-0 History of Present Illness Patient is a very pleasant 56-year-old male who presents today in follow-up with regards to his left index finger fracture. He has been trying to work on range of motion but is continuing to have significant stiffness she has no pain but has slight swan-neck deformity of the index finger. Review of Systems Constitutional: no fever, no chills, not feeling tired, no recent weight gain and no recent weight loss. ENT: no nosebleeds. Cardiovascular: no chest pain. Respiratory: no shortness of breath and no cough. Gastrointestinal: no abdominal pain, no nausea, no diarrhea and no vomiting. Musculoskeletal: no arthralgias and as noted in HPI. Integumentary: no rashes and no skin wound. Neurological: no headache. Psychiatric: no depression and no sleep disturbances. Endocrine: no muscle cramps. Hematologic/Lymphatic: swollen glands, but no tendency for easy bruising. Active Problems Problems Bilateral shoulder pain (719.41) (M25.511,M25.512) Chronic low back pain (724.2,338.29) (M54.5,G89.29) Closed displaced fracture of middle phalanx of left index finger, initial encounter (816.01) (S62.621A) Closed fracture of middle phalanx of left index finger with routine healing (V54.19) (S62.621D) Degenerative arthritis of lumbar spine (721.3) (M47.816) Elevated BP without diagnosis of hypertension (796.2) (R03.0) Encounter for immunization (V03.89) (Z23) Finger pain (729.5) (M79.646) Post-nasal drip (784.91) (R09.82) Sore throat (462) (J02.9) Surgical History Problems History of Appendectomy History of Foot surgery History of Tonsillectomy with adenoidectomy Family History Mother No pertinent family history Father No pertinent family history Sibling No pertinent family history Social History Problems Current every day smoker (305.1) (F17.200) No advance directives (V49.89) (Z78.9) No recent foreign travel Allergies NoKnown No Known Allergies Updated By: Mala Calderon; 03/14/2021 8:03:51 AM Current Meds Medication NameInstruction No Reported Medications Physical Exam Alert and Oriented x 3 Patient resting comfortably in the exam room Normocephalic atraumatic extraocular movements intact mucous membranes moist warm well perfused extremities nonlabored breathing appropriate mood and affect no evidence of lymphedema Left hand Well-healed laceration on the long finger and the index finger no signs of erythema drainage or infection there is significant stiffness in the MCP PIP and DIP joint of the index finger there is near full range of motion of the long finger. Brisk cap refill palpable pulses intact motor and sensory in all distributions essentially no flexion at the joints of the index finger slight swan-neck deformity Results/Data Xray Hand 2 [id number] 10:16Suzie Purdy Test NameResultFlagReference Xray Hand 2 View(Report) FINAL REPORT Interpreted by: EUGENIO ROSE KRISHNA, MD 05/03/21 18:38 Patient Name: NORBERTO MULLINS STUDY: Left hand 2 views. INDICATION: Left finger fracture. COMPARISON: 03/07/2021. ACCESSION NUMBER(S): [id number] ORDERING CLINICIAN: SUZIE CHAUDHARI FINDINGS: Healing nondisplaced oblique 2nd middle phalanx fracture noted with continued interval increase in amount of bridging callus. Corticated ossicles subjacent to the tuft of the 5th digit which may represent remote small healed fracture. No significant degenerative changes. There is mild soft tissue swelling of the 2nd digit. IMPRESSION: 1. Healing nondisplaced 2nd middle phalanx fracture without malalignment. Electronically signed by: EUGENIO ROSE 05/03/21 18:38 Signatures Electronically signed by : Suzie Chaudhari DO; Jul 04 2021 7:25AM EST (Author) Normal [email or web address] Established Visit (Orthopaed ic Surgery)on 06-03-2021 Established Visit (Orthopaedic Surgery) Diagnoses/Problems Assessed Closed displaced fracture of middle phalanx of left index finger, initial encounter (816.01) (Z50.573T) Provider Impressions Assessment?left index finger fracture now with finger stiffness Plan?patient is healed this fracture but continues have significant stiffness in the finger this is not uncommon. His follow-up was significantly altered because he wished to primarily limit his follow-up and monitor his improvement at home. His laceration healed nicely but the fracture and the stiffness post fracture is what remains. He is still quite stiff and does have difficulty with gripping and pinching on that hand because of the stiffness in the index finger. I did encourage him to work warm soapy soaks and try to improve his range of motion with flexion extension he will continue to do his activities at home and see if we can improve the bending of the finger This note has been created with voice recognition software. Please be aware that there may be grammatical or contextual errors due to the use of the software. Chief Complaint Patient here for follow-up of left index finger fracture. Patient describes occasional, short-duration of pain in the finger, 3-5 times per day. History of Present Illness Patient is a pleasant 56-year-old male who presents today in follow-up with regards to his left index finger fracture and previous laceration. He occasionally has some pain in the finger but has been trying to improve his activity level. Review of Systems Constitutional: no fever, no chills, not feeling tired, no recent weight gain and no recent weight loss. ENT: no nosebleeds. Cardiovascular: no chest pain. Respiratory: no shortness of breath and no cough. Gastrointestinal: no abdominal pain, no nausea, no diarrhea and no vomiting. Musculoskeletal: no arthralgias and as noted in HPI. Integumentary: no rashes and no skin wound. Neurological: no headache. Psychiatric: no depression and no sleep disturbances. Endocrine: no muscle cramps. Hematologic/Lymphatic: no swollen glands and no tendency for easy bruising. All other systems have been reviewed and are negative for complaint. Active Problems Problems Bilateral shoulder pain (719.41) (M25.511,M25.512) Chronic low back pain (724.2,338.29) (M54.5,G89.29) Closed displaced fracture of middle phalanx of left index finger, initial encounter (816.01) (S62.621A) Degenerative arthritis of lumbar spine (721.3) (M47.816) Elevated BP without diagnosis of hypertension (796.2) (R03.0) Encounter for immunization (V03.89) (Z23) Finger pain (729.5) (M79.646) Post-nasal drip (784.91) (R09.82) Sore throat (462) (J02.9) Surgical History Problems History of Appendectomy History of Foot surgery History of Tonsillectomy with adenoidectomy Family History Mother No pertinent family history Father No pertinent family history Sibling No pertinent family history Social History Problems Current every day smoker (305.1) (F17.200) No advance directives (V49.89) (Z78.9) No recent foreign travel Allergies NoKnown No Known Allergies Updated By: Mala Calderon; 03/14/2021 8:03:51 AM Current Meds Medication NameInstruction No Reported Medications Vitals Vital Signs Recorded: [id number] 01:54PM Xpxfcryudbs81.8 F Heart Rate69 Qbchmnok231, LUE, Sitting Dtqnidbxl57, LUE, Sitting Height5 ft 10 in Ywsgzs448 lb 12.8 oz BMI Jdgqftqikj53.38 kg/m2 BSA Calculated2.08 Tobacco Usea) Yes Fall Screeninga) No falls within the last year Physical Exam Alert and Oriented x 3 Patient resting comfortably in the exam room Normocephalic atraumatic extraocular movements intact mucous membranes moist warm well perfused extremities nonlabored breathing appropriate mood and affect no evidence of lymphedema Left hand Well-healed laceration on the long finger and the index finger no signs of erythema drainage or infection there is significant stiffness in the MCP PIP and DIP joint of the index finger there is near full range of motion of the long finger. Brisk cap refill palpable pulses intact motor and sensory in all distributions essentially no flexion at the joints of the index finger Results/Data Xray Hand 2 [id number] 10:16Suzie Purdy Test NameResultFlagReference Xray Hand 2 View(Report) FINAL REPORT Interpreted by: EUGENIO ROSE KRISHNA, MD 05/03/21 18:38 Patient Name: NORBERTO MULLINS STUDY: Left hand 2 views. INDICATION: Left finger fracture. COMPARISON: 03/07/2021. ACCESSION NUMBER(S): [id number] ORDERING CLINICIAN: SUZIE CHAUDHARI FINDINGS: Healing nondisplaced oblique 2nd middle phalanx fracture noted with continued interval increase in amount of bridging callus. Corticated ossicles subjacent to the tuft of the 5th digit which may represent remote small healed fracture. No significant degenerative changes. There is mild soft tissue swelling of the 2nd digit. IMPRESSION: 1. Healing nondisplac (more content not included)... Normal [facility] Tobacco Screening.on 021 Fall risk assessment a) No falls within the last year [facility] 300 Work Phone: Tobacco use status CP a) Yes [facility] 300 Work Phone: Established Visit (Orthopaed ic Surgery)on 04-30-2021 Established Visit (Orthopaedic Surgery) Diagnoses/Problems Assessed Closed displaced fracture of middle phalanx of left index finger, initial encounter (816.01) (S03.175Y) Provider Impressions Assessment?left index finger middle phalanx fracture and previous finger lacerations Plan?patient's laceration is healed very nicely there is no signs of infection now he is extremely stiff in the index finger as he has been splinted for 6 or 7 weeks. I did encourage him to discontinue the splint and start working on range of motion activities with the finger his fracture does show healing on the radiographs although there is still some delay in full healing I did encourage him to try to work and move the MCP PIP and DIP joints he is going to try to do this on his own he does not want to try some formal therapy but he is call us in 1 month to see if he has achieved full range of motion if not we can try some formal hand therapy This note has been created with voice recognition software. Please be aware that there may be grammatical or contextual errors due to the use of the software. Chief Complaint Follow up left index finger fracture. c/o mild pain and swelling. History of Present Illness Patient is a very pleasant 56-year-old male who presents today for follow-up with regards to his left index finger. He only has very minimal pain discomfort but he does have mild amount of swelling. His lacerations did heal very nicely has been in a splint for the last 6 weeks. He denies any pain currently. He does have significant stiffness of the finger. Review of Systems Constitutional: no fever, no chills, not feeling tired, no recent weight gain and no recent weight loss. ENT: no nosebleeds. Cardiovascular: no chest pain. Respiratory: no shortness of breath and no cough. Gastrointestinal: no abdominal pain, no nausea, no diarrhea and no vomiting. Musculoskeletal: no arthralgias and as noted in HPI. Integumentary: no rashes and no skin wound. Neurological: no headache. Psychiatric: no depression and no sleep disturbances. Endocrine: no muscle cramps. Hematologic/Lymphatic: no swollen glands and no tendency for easy bruising. All other systems have been reviewed and are negative for complaint. Active Problems Problems Bilateral shoulder pain (719.41) (M25.511,M25.512) Chronic low back pain (724.2,338.29) (M54.5,G89.29) Closed displaced fracture of middle phalanx of left index finger, initial encounter (816.01) (S62.621A) Degenerative arthritis of lumbar spine (721.3) (M47.816) Elevated BP without diagnosis of hypertension (796.2) (R03.0) Encounter for immunization (V03.89) (Z23) Finger pain (729.5) (M79.646) Post-nasal drip (784.91) (R09.82) Sore throat (462) (J02.9) Surgical History Problems History of Appendectomy History of Foot surgery History of Tonsillectomy with adenoidectomy Family History Mother No pertinent family history Father No pertinent family history Sibling No pertinent family history Social History Problems Current every day smoker (305.1) (F17.200) No advance directives (V49.89) (Z78.9) No recent foreign travel Allergies NoKnown No Known Allergies Updated By: Mala Calderon; 03/14/2021 8:03:51 AM Current Meds Medication NameInstruction No Reported Medications Vitals Vital Signs Recorded: 30Apr2021 10:32AM Heart Rate82 [id number] Ewriaalgt296 Height5 ft 10 in Ouutit744 lb BMI Omcvzhjkks80.69 kg/m2 BSA Calculated2.06 Tobacco Useb) No Fall Screeninga) No falls within the last year Physical Exam Alert and Oriented x 3 Patient resting comfortably in the exam room Normocephalic atraumatic extraocular movements intact mucous membranes moist warm well perfused extremities nonlabored breathing appropriate mood and affect no evidence of lymphedema Left hand Mild lacerations on the long finger and the index finger no signs of erythema drainage or infection there is significant stiffness in the MCP PIP and DIP joint of the index finger there is near full range of motion of the long finger. Brisk cap refill palpable pulses intact motor and sensory in all distributions essentially no flexion at the joints of the index finger Results/Data Xray Hand 2 [id number] 10:20AMSuzie Chaudhari Test NameResultFlagReference Xray Hand 2 View Please click on the link to view the study images Signatures Electronically signed by : Suzie Chaudhari DO; Apr 30 2021 1:20PM EST (Author) Normal [facility] Radiologyon 04-30-2021 XR Hand 2 Views Please click on the link to view the study images Normal [facility] Work Phone: XR Hand 2 Views [facility] 300 Work Phone: Tobacco Screening.on 021 Fall risk assessment a) No falls within the last year [facility] [place] [facility] Work Phone: Tobacco use status [facility] b) No [facility] [place] [facility] Work Phone: Otheron 10-03-2019 Interpreted by: JEAN-PAUL PERSAUD10/04/19 13:16MRN: [id number] Name: NORBERTO MULLINS STUDY:BILATERAL SHOULDER, CMPLT, MIN 2 VIEWS;; 10/03/2019 2:18 pm INDICATION:bilateral shoulder pain. COMPARISON:None. ORDERING CLINICIAN:PASQUALE EVANGELISTA FINDINGS:LEFT SHOULDER 5 VIEWS: The glenohumeral joint is normal in width.The articular margins are intact. Mild degenerative changes arepresent at the AC joint. The glenohumeral joint is normal in width.There is no soft tissue calcification. RIGHT SHOULDER-FIVE VIEWS:The glenohumeral joint is normal in width. A prominent exostosis isseen from the inferior margin of the humeral head. Mild degenerativechanges seen in the AC joint. No periarticular calcification. IMPRESSION:Left shoulder: Mild degenerative changes of the AC joint.Right shoulder: Mild degenerative changes of the AC joint. Exostosisfrom the inferior margin of the humeral head.Electronically signed by: BEATA PERSAUD 10/04/19 13:16 Normal [facility] Work Phone: Please click on the link to view the study images Normal [facility] Work Phone: XR Hand 3+ Views Righton XR Hand 3+ Views Right Exam Date/Time:11/28/2018 14:25 ESTReason for Exam:Pain, TraumaticReportSTUDY:XR Hand 3+ Views Right; 11/28/2018 2:25 pmINDICATION:Pain, Traumatic.COMPARISON:None . 0ORDERING CLINICIAN:Jamari Bernard:Three views of the right hand obtained.No acute fracture or osseous displacement. Joint spaces are preserved. No focal soft tissue swelling is apparent.IMPRESSION:No evidence of fracture. FINAL REPORT Dictated: 11/29/2018 7:50 am Kwabena Maloney MDigned (Electronic Signature): 11/29/2018 7:50 amSigned by: Cecilia Maloney MD Technologist: DIANA Normal [facility] BMPon 08-30-2018 Anion gap 3 molar conc 10 mmol/L Normal 6-16 [facility] Comment on above: Performed By: #### 2 [id number] ####[facility] [id number] [place] [address] Calcium mass conc 9.1 mg/dL Normal 8.6-10.3 [facility] Comment on above: Performed By: #### 2 [id number] ####[facility] [id number] [place] [address] Chloride molar conc 105 mmol/L Normal 98-107 [facility] Comment on above: Performed By: #### 2 [id number] ####[facility] [id number] [place] [address] CO2 molar conc 26.0 mmol/L Normal 21.0-32.0 [facility] Comment on above: Performed By: #### 2 [id number] ####[facility] [id number] [place] [address] Creatinine mass conc 0.8 mg/dL Normal 0.6-1.3 [facility] Comment on above: Performed By: #### 2 [id number] ####[facility] [id number] [place] [address] Glucose mass conc 111 mg/dL High 70-99 [facility] Comment on above: Performed By: #### 2 [id number] ####[facility] [address] [place] [address] Potassium molar conc 3.9 mmol/L Normal 3.5-5.3 [facility] Comment on above: Performed By: #### 2 [id number] ####[facility] [address] [place] [address] Sodium molar conc 137 mmol/L Normal 136-145 [facility] Comment on above: Performed By: #### 2 [id number] ####[facility] [id number] [place] [address] Urea nitrogen mass conc 17 mg/dL Normal 6-23 [facility] Comment on above: Performed By: #### 2 [id number] ####[facility] [address] [place] [address] Urea nitrogen/Creatinine mass ratio 21.2 ratio Normal 5.4-30.0 [facility] Comment on above: Performed By: #### 2 [id number] ####[facility] [address] [place] [address] eGFRon 08-30-2018 eGFR AA >60 Normal [facility] Comment on above: Order Comment: Order added by Discern Expert. Performed By: #### 1 [id number] ####[facility] [address] [place] [address] GFR/1.73 sq M predicted among non-blacks MDRD vol rate/area (S/P/Bld) mL/min/{1.73_m2} Normal [facility] Comment on above: Order Comment: Order added by Discern Expert. Performed By: #### 1 [id number] ####[facility] [id number] [place] [address] XR Spine Lumbosacral Complet e w/ Bendingon 08-16-2018 XR Spine Lumbosacral Complete w/ Bending Exam Date/Time:08/16/2018 09:21 EDTReason for Exam:Pain, Non TraumaticReportSTUDY:XR Spine Lumbosacral Complete w/ Bending; 08/16/2018 9:21 amINDICATION:Low back painCOMPARISON:None.ACCES JOHANNA NUMBER(S):[id number] 8ORDERING CLINICIAN:Pasquale Watts:7 views of the lumbar spine including AP, lateral, lateral cone-down, lateral flexion and extension and bilateral oblique views were obtained. There is no acute fracture identified. The vertebral bodies are well aligned without evidence of subluxation. Moderate disc space narrowing and marginal osteophyte formation is seen at the L4-5 and L5-S1 levels. Mild discogenic degenerative changes are seen at the L2-3 level. Moderate facet degenerative changes are seen throughout the lumbar spine. There is no evidence of pars interarticularis defect. No abnormal motion is seen on the flexion and extension views.IMPRESSION:1. No evidence of acute fracture.2. Degenerative changes throughout the lumbar spine, as described above. FINAL REPORT Dictated: 08/16/2018 11:56 am Vikas Diaz MD CSigned (Electronic Signature): 08/16/2018 11:56 amSigned by: Vikas Diaz MD Technologist: [facility] XR Finger(s) Min 2 Views [place] 12-23-2017 XR Finger(s) Min 2 Views Left Exam Date/Time:12/23/2017 12:11 ESTReason for Exam:Pain, TraumaticReportLEFT SECOND FINGERADDITIONAL CLINICAL INFORMATION: Smashed second finger.FINDINGS: 3 views of the left second finger were obtained. A punctatesubcentimeter ossific density is noted within the distal lateral soft tissuesof the second digit. No underlying fracture or dislocation are present.IMPRESSION:No evidence of fracture or dislocation. Incidental punctate ossific density ispresent within the distal lateral soft tissues of the second digit, which maybe a result of old trauma. Old fracture extending through the tuft of the fifthdistal phalanx is also noted. FINAL REPORT Dictated: 12/23/2017 1:24 pm Sara Rossi MD (Electronic Signature): 12/23/2017 1:24 pmSigned by: Grey Rossi MD Technologist: [facility] Vital Signs Date Time Vital Sign Value Performing Clinician Melo ricks 05-17-2025 15:31-0400 Body height 180.3 cm Sherwin Bello PA-C Work Phone: [facility] 05-17-2025 15:31-0400 Body mass index (BMI) [Ratio] 26.5 kg/m2 Sherwin Bello PA-C Work Phone: [facility] 05-17-2025 15:31-0400 Body weight 86.18 kg Sherwin Stentz PA-C Work Phone: [facility] 05-17-2025 15:31-0400 Diastolic blood pressure 89 mm[Hg] Sherwin Stentz PA-C Work Phone: [facility] 05-17-2025 15:31-0400 Heart rate 76 /min Sherwin Stentz PA-C Work Phone: [facility] 05-17-2025 15:31-0400 Systolic blood pressure 128 mm[Hg] Sherwin Stentz PA-C Work Phone: [facility] 05-07-2025 15:19-0400 Body height 180.[address] Handy Evangelista MD Work Phone: [facility] 05-07-2025 15:19-0400 Body mass index (BMI) [Ratio] 27.1 kg/m2 Dr. Handy Evangelista MD Work Phone: [facility] 05-07-2025 15:19-0400 Body weight 88.[address] Handy Evangelista MD Work Phone: [facility] 05-07-2025 15:19-0400 Diastolic blood pressure 80 mm[Hg] Dr. Handy Evangelista MD Work Phone: [facility] 05-07-2025 15:19-0400 Heart rate 82 /min Dr. Handy Evangelista MD Work Phone: [facility] 05-07-2025 15:19-0400 Respiratory rate 16 /min Dr. Handy Evangelista MD Work Phone: [facility] 05-07-2025 15:19-0400 SaO2% (BldA) [Mass fraction] 98 % Dr. Handy Evangelista MD Work Phone: [facility] 05-07-2025 15:19-0400 Systolic blood pressure 127 mm[Hg] Dr. Handy Evangelista MD Work Phone: [facility] 05-02-2025 15:32-0400 Diastolic blood pressure 87 mm[Hg] Muriel Martin PULPER OPERATOR-RIP AND GROOVE MACHINE OPERATOR Work Phone: [facility] 05-02-2025 15:32-0400 Systolic blood pressure 147 mm[Hg] Muriel Martin PULPER OPERATOR-RIP AND GROOVE MACHINE OPERATOR Work Phone: [facility] 05-02-2025 15:00-0400 Body height 180.3 cm Muriel Martin PULPER OPERATOR-RIP AND GROOVE MACHINE OPERATOR Work Phone: [facility] 05-02-2025 15:00-0400 Body mass index (BMI) [Ratio] 26.92 kg/m2 Murielcory Martin PULPER OPERATOR-RIP AND GROOVE MACHINE OPERATOR Work Phone: [facility] 05-02-2025 15:00-0400 Body weight 87.54 kg Murielcory Martin PULPER OPERATOR-RIP AND GROOVE MACHINE OPERATOR Work Phone: [facility] 05-02-2025 15:00-0400 Heart rate 76 /min Murielcory Martin PULPER OPERATOR-RIP AND GROOVE MACHINE OPERATOR Work Phone: [facility] 05-02-2025 15:00-0400 SaO2% (BldA) [Mass fraction] 99 % Murielcory Martin PULPER OPERATOR-RIP AND GROOVE MACHINE OPERATOR Work Phone: [facility] 01-05-2025 16:27-0500 Body temperature 97.8 [degF] Dr. Handy Evangelista MD Work Phone: [facility] 01-05-2025 16:27-0500 Diastolic blood pressure 86 mm[Hg] Dr. Handy Evangelista MD Work Phone: [facility] 01-05-2025 16:27-0500 Heart rate 70 /min Dr. Handy Evangelista MD Work Phone: [facility] 01-05-2025 16:27-0500 Respiratory rate 18 /min Dr. Handy Evangelista MD Work Phone: [facility] 01-05-2025 16:27-0500 SaO2% (BldA) [Mass fraction] 100 % Dr. Hnady Evangelista MD Work Phone: [facility] 01-05-2025 16:27-0500 Systolic blood pressure 124 mm[Hg] Dr. Handy Evangelista MD Work Phone: [facility] 01-05-2025 13:39-0500 Body height 180.[address] Handy Evangelista MD Work Phone: [facility] 01-05-2025 13:39-0500 Body mass index (BMI) [Ratio] 25.4 kg/m2 Dr. Handy Evangelista MD Work Phone: [facility] 01-05-2025 13:39-0500 Body weight 82.[address] Handy Evangelista MD Work Phone: [facility] 11-23-2024 10:16-0500 Diastolic blood pressure 89 mm[Hg] [address] 11-23-2024 10:16-0500 Heart rate 80 /min [address] 11-23-2024 10:16-0500 Systolic blood pressure 159 mm[Hg] [address] 11-14-2024 10:32-0500 Body height 180.3 cm Sherwin Stentz PA-C Work Phone: [facility] 11-14-2024 10:32-0500 Body mass index (BMI) [Ratio] 26.08 kg/m2 Sherwin Stentz PA-C Work Phone: [facility] 11-14-2024 10:32-0500 Body weight 84.82 kg Sherwin Stentz PA-C Work Phone: [facility] 11-14-2024 10:32-0500 Diastolic blood pressure 80 mm[Hg] Sherwin Stentz PA-C Work Phone: [facility] 11-14-2024 10:32-0500 Heart rate 74 /min Sherwin Stentz PA-C Work Phone: [facility] 11-14-2024 10:32-0500 SaO2% (BldA) [Mass fraction] 97 % Sherwin Stentz PA-C Work Phone: [facility] 11-14-2024 10:32-0500 Systolic blood pressure 132 mm[Hg] Sherwin Stentz PA-C Work Phone: [facility] 10-16-2024 15:37-0500 Body weight 88.[address] Handy Evangelista MD Work Phone: [facility] 10-16-2024 15:37-0500 Diastolic blood pressure 92 mm[Hg] Dr. Handy Evangelista MD Work Phone: [facility] 10-16-2024 15:37-0500 Heart rate 81 /min Dr. Handy Evangelista MD Work Phone: [facility] 10-16-2024 15:37-0500 Respiratory rate 16 /min Dr. Handy Evangelista MD Work Phone: [facility] 10-16-2024 15:37-0500 SaO2% (BldA) [Mass fraction] 92 % Dr. Handy Evangelista MD Work Phone: [facility] 10-16-2024 15:37-0500 Systolic blood pressure 160 mm[Hg] Dr. Handy Evangelista MD Work Phone: [facility] 09-28-2024 15:15-0500 Body height 180.3 cm Sherwin Stentz PA-C Work Phone: [facility] 09-28-2024 15:15-0500 Body mass index (BMI) [Ratio] 26.36 kg/m2 Sherwin Stentz PA-C Work Phone: [facility] 09-28-2024 15:15-0500 Body weight 85.73 kg Sherwin Stentz PA-C Work Phone: [facility] 09-28-2024 15:15-0500 Diastolic blood pressure 82 mm[Hg] Sherwin Stentz PA-C Work Phone: [facility] 09-28-2024 15:15-0500 Heart rate 85 /min Sherwin Stentz PA-C Work Phone: [facility] 09-28-2024 15:15-0500 SaO2% (BldA) [Mass fraction] 95 % Sherwin Stentz PA-C Work Phone: [facility] 09-28-2024 15:15-0500 Systolic blood pressure 142 mm[Hg] Sherwin Stentz PA-C Work Phone: [facility] 07-10-2024 15:56-0400 Body height 180.3 cm Rajinder Osei MD MPH Work Phone: [facility] 07-10-2024 15:56-0400 Body mass index (BMI) [Ratio] 27 kg/m2 Rajinder Osei MD MPH Work Phone: [facility] 07-10-2024 15:56-0400 Body weight 87.82 kg Rajinder Osei MD MPH Work Phone: [facility] 07-10-2024 15:56-0400 Diastolic blood pressure 86 mm[Hg] Rajinder Osei MD MPH Work Phone: [facility] 07-10-2024 15:56-0400 Heart rate 75 /min Rajinder Osei MD MPH Work Phone: [facility] 07-10-2024 15:56-0400 SaO2% (BldA) [Mass fraction] 95 % Rajinder Osei MD MPH Work Phone: [facility] 07-10-2024 15:56-0400 Systolic blood pressure 140 mm[Hg] Rajinder Osei MD MPH Work Phone: [facility] 05-19-2024 15:37-0400 Body height 180.3 cm Rajinder Osei MD MPH Work Phone: [facility] 05-19-2024 15:37-0400 Body mass index (BMI) [Ratio] 26.6 kg/m2 Rajinder Osei MD MPH Work Phone: [facility] 05-19-2024 15:37-0400 Body weight 86.5 kg Rajinder Osei MD MPH Work Phone: [facility] 05-19-2024 15:37-0400 Diastolic blood pressure 84 mm[Hg] Rajinder Osei MD MPH Work Phone: [facility] 05-19-2024 15:37-0400 Heart rate 81 /min Rajinder Osei MD MPH Work Phone: [facility] 05-19-2024 15:37-0400 SaO2% (BldA) [Mass fraction] 96 % Rajinder Osei MD MPH Work Phone: [facility] 05-19-2024 15:37-0400 Systolic blood pressure 146 mm[Hg] Rajinder Osei MD MPH Work Phone: [facility] 04-25-2024 15:56-0400 Body height 180.3 cm Rajinder Osei MD MPH Work Phone: [facility] 04-25-2024 15:56-0400 Body mass index (BMI) [Ratio] 25.94 kg/m2 Rajinder Osei MD MPH Work Phone: [facility] 04-25-2024 15:56-0400 Body weight 84.37 kg Rajinder Osei MD MPH Work Phone: [facility] 04-25-2024 15:56-0400 Diastolic blood pressure 88 mm[Hg] Rajinder Osei MD MPH Work Phone: [facility] 04-25-2024 15:56-0400 Heart rate 94 /min Rajinder Osei MD MPH Work Phone: [facility] 04-25-2024 15:56-0400 SaO2% (BldA) [Mass fraction] 97 % Rajinder Osei MD MPH Work Phone: [facility] 04-25-2024 15:56-0400 Systolic blood pressure 144 mm[Hg] Rajinder Osei MD MPH Work Phone: [facility] 02-15-2024 15:22-0400 Body mass index (BMI) [Ratio] 25.72 kg/m2 Rajinder Osei MD MPH Work Phone: [facility] 02-15-2024 15:22-0400 Body weight 83.64 kg Rajinder Osei MD MPH Work Phone: [facility] 02-15-2024 15:22-0400 Diastolic blood pressure 80 mm[Hg] Rajinder Osei MD MPH Work Phone: [facility] 02-15-2024 15:22-0400 Heart rate 78 /min Rajinder Osei MD MPH Work Phone: [facility] 02-15-2024 15:22-0400 SaO2% (BldA) [Mass fraction] 97 % Rajinder Osei MD MPH Work Phone: [facility] 02-15-2024 15:22-0400 Systolic blood pressure 142 mm[Hg] Rajinder Osei MD MPH Work Phone: [facility] 01-06-2024 11:14-0500 Body height 180.3 cm Hay Felipe APRN-RIP AND GROOVE MACHINE OPERATOR Work Phone: [facility] 01-06-2024 11:14-0500 Body mass index (BMI) [Ratio] 25.8 kg/m2 Hay Felipe APRN-RIP AND GROOVE MACHINE OPERATOR Work Phone: [facility] 01-06-2024 11:14-0500 Body temperature 98.49 [degF] Hay Felipe PULPER OPERATOR-RIP AND GROOVE MACHINE OPERATOR Work Phone: [facility] 01-06-2024 11:14-0500 Body weight 83.92 kg Hay Felipe PULPER OPERATOR-RIP AND GROOVE MACHINE OPERATOR Work Phone: [facility] 01-06-2024 11:14-0500 Diastolic blood pressure 98 mm[Hg] Hay Felipe PULPER OPERATOR-RIP AND GROOVE MACHINE OPERATOR Work Phone: [facility] 01-06-2024 11:14-0500 Heart rate 105 /min Hay Felipe PULPER OPERATOR-RIP AND GROOVE MACHINE OPERATOR Work Phone: [facility] 01-06-2024 11:14-0500 Respiratory rate 18 /min Hay Felipe PULPER OPERATOR-RIP AND GROOVE MACHINE OPERATOR Work Phone: [facility] 01-06-2024 11:14-0500 SaO2% (BldA) [Mass fraction] 98 % Hay Remybalaji PULPER OPERATOR-RIP AND GROOVE MACHINE OPERATOR Work Phone: [facility] 01-06-2024 11:14-0500 Systolic blood pressure 162 mm[Hg] Hay Destinee PULPER OPERATOR-RIP AND GROOVE MACHINE OPERATOR Work Phone: [facility] 11-16-2023 16:19-0500 Diastolic blood pressure 94 mm[Hg] Rajinder Osei MD MPH Work Phone: [facility] 11-16-2023 16:19-0500 Heart rate 79 /min Rajinder Osei MD MPH Work Phone: [facility] 11-16-2023 16:19-0500 SaO2% (BldA) [Mass fraction] 97 % Rajinder Osei MD MPH Work Phone: [facility] 11-16-2023 16:19-0500 Systolic blood pressure 170 mm[Hg] Rajinder Osei MD MPH Work Phone: [facility] 11-16-2023 15:52-0500 Body mass index (BMI) [Ratio] 26.19 kg/m2 Rajinder Osei MD MPH Work Phone: [facility] 11-16-2023 15:52-0500 Body weight 84.87 kg Rajinder Osei MD MPH Work Phone: [facility] 07-09-2023 07:56-0400 Body mass index (BMI) [Ratio] 27.94 kg/m2 Rajinder Osei MD MPH Work Phone: [facility] 07-09-2023 07:56-0400 Body weight 90.54 kg Rajinder Osei MD MPH Work Phone: [facility] 07-09-2023 07:56-0400 Diastolic blood pressure 100 mm[Hg] Rajinder Osei MD MPH Work Phone: [facility] 07-09-2023 07:56-0400 Heart rate 82 /min Rajinder Osei MD MPH Work Phone: [facility] 07-09-2023 07:56-0400 SaO2% (BldA) [Mass fraction] 98 % Rajinder Osei MD MPH Work Phone: [facility] 07-09-2023 07:56-0400 Systolic blood pressure 190 mm[Hg] Rajinder Osei MD MPH Work Phone: [facility] 05-28-2023 08:19-0400 Body mass index (BMI) [Ratio] 28.22 kg/m2 Rajinder Osei MD MPH Work Phone: [facility] 05-28-2023 08:19-0400 Body weight 91.44 kg Rajinder Osei MD MPH Work Phone: [facility] 05-28-2023 08:19-0400 Diastolic blood pressure 100 mm[Hg] Rajinder Osei MD MPH Work Phone: [facility] 05-28-2023 08:19-0400 Heart rate 75 /min Rajinder Osei MD MPH Work Phone: [facility] 05-28-2023 08:19-0400 SaO2% (BldA) [Mass fraction] 95 % Rajinder Osei MD MPH Work Phone: [facility] 05-28-2023 08:19-0400 Systolic blood pressure 170 mm[Hg] Rajinder Osei MD MPH Work Phone: [facility] 04-21-2022 09:33-0400 Body height 177.8 cm Rajinder Osei MD, MPH Work Phone: [facility] Work Phone: 04-21-2022 09:33-0400 Body mass index (BMI) [Ratio] 26.26 kg/m2 Rajinder Osei MD, MPH Work Phone: [facility] Work Phone: 04-21-2022 09:33-0400 Body surface area Derived from formula 2.01 m2 Rajinder Osei MD, MPH Work Phone: [facility] Work Phone: 04-21-2022 09:33-0400 Body weight 83 kg Rajinder Osei MD, MPH Work Phone: [facility] Work Phone: 04-21-2022 09:33-0400 Diastolic blood pressure 90 mm[Hg] Rajinder Osei MD, MPH Work Phone: [facility] Work Phone: 04-21-2022 09:33-0400 Heart rate 80 /min Rajinder Osei MD, MPH Work Phone: [facility] Work Phone: 04-21-2022 09:33-0400 Systolic blood pressure 152 mm[Hg] Rajinder Osei MD, MPH Work Phone: [facility] Work Phone: 10-13-2021 16:07-0500 Body height 177.8 cm Rajinder Nag S Mallapareddi Work Phone: [facility] Work Phone: 10-13-2021 16:07-0500 Body mass index (BMI) [Ratio] 28.15 kg/m2 Rajinder Nag S Mallapareddi Work Phone: [facility] Work Phone: 10-13-2021 16:07-0500 Body surface area Derived from formula 2.07 m2 Rajinder Nag S Mallapareddi Work Phone: [facility] Work Phone: 10-13-2021 16:07-0500 Body weight 88.99 kg Rajinder Nag S Mallapareddi Work Phone: [facility] Work Phone: 10-13-2021 16:07-0500 Diastolic blood pressure 84 mm[Hg] Rajinder Nag S Mallapareddi Work Phone: [facility] Work Phone: 10-13-2021 16:07-0500 Heart rate 92 /min Rajinder Nag S Mallapareddi Work Phone: [facility] Work Phone: 10-13-2021 16:07-0500 Systolic blood pressure 140 mm[Hg] Rajinder Nag S Mallapareddi Work Phone: [facility] Work Phone: 09-24-2021 14:28-0400 Body height 179 cm Rajinder Nag Mallapareddi [facility] 09-24-2021 14:28-0400 Body temperature 97.88 [degF] Rajinder Nag Mallapareddi [facility] 09-24-2021 14:28-0400 Diastolic blood pressure 97 mm[Hg] Rajinder Nag Mallapareddi [facility] 09-24-2021 14:28-0400 Heart rate 80 /min Rajinder Gonzalez Mallapareddi [facility] 09-24-2021 14:28-0400 SaO2% (BldA) [Mass fraction] 97 % Rajinder Gonzalez Mallapareddi [facility] 09-24-2021 14:28-0400 Systolic blood pressure 163 mm[Hg] Rajinder Gonzalez Malldarlenereddi [facility] 06-03-2021 13:54-0400 Body height 177.8 cm Rajinder Gonzalez S Mallapareddi Work Phone: [facility] 300 Work Phone: 06-03-2021 13:54-0400 Body mass index (BMI) [Ratio] 28.38 kg/m2 Rajinder Alfonso Mallapareddi Work Phone: [facility] 300 Work Phone: 06-03-2021 13:54-0400 Body surface area Derived from formula 2.08 m2 Rajinder Alfonso Mallapareddi Work Phone: [facility] 300 Work Phone: 06-03-2021 13:54-0400 Body temperature 97.8 [degF] Rajinder Alfonso Mallapareddi Work Phone: [facility] 300 Work Phone: 06-03-2021 13:54-0400 Body weight 89.72 kg Rajinder Alfonso Mallapareddi Work Phone: [facility] 300 Work Phone: 06-03-2021 13:54-0400 Diastolic blood pressure 90 mm[Hg] Rajinder Gonzalez S Mallapareddi Work Phone: [facility] 300 Work Phone: 06-03-2021 13:54-0400 Heart rate 69 /min Rajinder Gonzalez S Mallapareddi Work Phone: [facility] [place] 2[facility] 300 Work Phone: 06-03-2021 13:54-0400 Systolic blood pressure 149 mm[Hg] Rajinder Nag S Mallapareddi Work Phone: [facility] 300 Work Phone: 04-30-2021 10:32-0400 Body height 177.8 cm Rajinder Nag S Mallapareddi Work Phone: -[facility] Work Phone: 04-30-2021 10:32-0400 Body mass index (BMI) [Ratio] 27.69 kg/m2 Rajinder Nag S Mallapareddi Work Phone: [facility] Work Phone: 04-30-2021 10:32-0400 Body surface area Derived from formula 2.06 m2 Rajinder Nag S Mallapareddi Work Phone: [facility] Work Phone: 04-30-2021 10:32-0400 Body weight 87.54 kg Rajinder Nag S Mallapareddi Work Phone: -[facility] Work Phone: 04-30-2021 10:32-0400 Diastolic blood pressure 101 mm[Hg] Rajinder Nag S Mallapareddi Work Phone: [facility] Work Phone: 04-30-2021 10:32-0400 Heart rate 82 /min Rajinder Nag S Mallapareddi Work Phone: -[facility] Work Phone: 04-30-2021 10:32-0400 Systolic blood pressure 151 mm[Hg] Rajinder Nag S Mallapareddi Work Phone: -[facility] Work Phone: 10-02-2019 19:13-0500 BP Diastolic 90 mm[Hg] Pasquale Tourlas [facility] Work Phone: Comment on above: Location: LUE; Position: Sitting 10-02-2019 19:13-0500 BP Systolic 140 mm[Hg] Pasquale Evangelista [facility] Work Phone: Comment on above: Location: LUE; Position: Sitting 10-02-2019 18:34-0500 BMI (Body Mass Index) 27.01 kg/m2 Pasquale De Leonlas [facility] Work Phone: 10-02-2019 18:34-0500 Body weight 86.55 kg Pasqaule Evangelista [facility] Work Phone: 10-02-2019 18:34-0500 BP Diastolic 80 mm[Hg] [facility] 10-02-2019 18:34-0500 BP Systolic 150 mm[Hg] Pasquale De Leonlas [facility] Work Phone: 10-02-2019 18:34-0500 BSA (Body Surface Area) 2.06 m2 [facility]: 10-02-2019 18:34-0500 Height 179 [facility]: 10-02-2019 18:34-0500 Pulse (Heart Rate) 66 /min Pasquale Evangelista [facility] Work Phone: Encounters Encounter Date Encounter Type Care Provider Facility Start: 08-07-2025 ambulatory Riky Robson Facility :[facility] Start: 05-17-2025 End: 05-17-2025 Office outpatient visit 25 minutes Sherwin Bello PA-C Work Phone: [facility] Comment on above: Heartburn (Primary D x); Insomnia, unspecified type; Anxiety; Depression, unspecified depression type; Arthritis of both shoulders; Alcohol abuse counseling and surveillance Start: 05-17-2025 End: 05-17-2025 ambulatory [facility] Ambulatory Start: 05-07-2025 End: 05-07-2025 Patient encounter procedure Mala LARKIN -[facility] Work Phone: Start: 05-07-2025 End: 05-07-[address] Handy Evangelista MD Work Phone: [facility] Work Phone: Start: 05-02-2025 End: 05-02-2025 Office outpatient visit 25 minutes [facility] PULPER OPERATOR-RIP AND GROOVE MACHINE OPERATOR Work Phone: [facility] Comment on above: Insomnia, unspecifie d type (Primary Dx); Heartburn; Anxiety; Depression, unspecified depression type; Prostate cancer screening Start: 05-02-2025 End: 05-02-2025 ambulatory [facility] Start: 04-17-2025 ambulatory [facility] Facility: [facility] Start: 01-27-2025 End: 01-27-2025 Subsequent hospital visit by physician Alfredo [address] Comment on above: Nicotine dependence, unspecified, uncomplicated Start: 01-27-2025 End: 01-27-2025 ambulatory ANYI YODER [facility] Start: 01-24-2025 End: 01-24-[address] Handy Evangelista MD Work Phone: [facility] Work Phone: Start: 01-24-2025 End: 01-24-2025 Patient encounter procedure Mala LARKIN -Radiology, [facility] Work Phone: Start: 01-24-2025 End: 01-24-2025 ambulatory [facility] Facility:[facility] Start: 01-22-2025 End: 01-22-[address] Handy Evangelista MD Work Phone: [facility] Work Phone: Start: 01-22-2025 End: 01-22-2025 Patient encounter procedure Mala LARKIN -Radiology, [facility] Work Phone: Start: 01-22-2025 End: 01-22-2025 ambulatory [facility] Facility:[facility] Start: 01-18-2025 End: 01-18-2025 Patient encounter procedure Mala LARKIN -[facility] Work Phone: Start: 01-18-2025 End: 01-18-2025 ambulatory Handy Tourlas Facility:[facility] Start: 01-05-2025 ambulatory Riky Perez Facility :[facility] Start: 01-05-2025 Non-patient / Non-visit Riky Resendiz nd DO -[facility] Start: 01-05-2025 End: 01-05-2025 Admission to same day surgery center Riky Perez DO -Endoscopy Work Phone: Start: 01-05-2025 End: 01-05-2025 ambulatory Riky Robson Facility:[facility] Start: 11-23-2024 End: 11-23-2024 Subsequent hospital visit by physician Alfredo Whittington [address] [place] [address] Comment on above: Dyspnea on exertion Start: 11-23-2024 End: 11-23-2024 ambulatory [facility] Start: 11-14-2024 End: 11-14-2024 Office outpatient visit 15 minutes [facility] PA-C Work Phone: [facility] Comment on above: Dyspnea on exertion (Primary Dx); Primary hypertension; Shoulder arthritis Start: 11-14-2024 End: 11-14-2024 ambulatory [facility] Ambulatory Start: 11-10-2024 End: 11-10-2024 Patient encounter procedure Mala LARKIN -Ultrasound, [facility] Work Phone: Start: 11-10-2024 End: 11-10-2024 ambulatory Mala Hill Facility:[facility] Start: 10-25-2024 End: 10-25-2024 Patient encounter procedure Mala LARKIN -Laboratory, Specimen Work Phone: Start: 10-25-2024 End: 10-25-2024 ambulatory Mala Hill Facility:[facility] Start: 10-16-2024 End: 10-16-2024 Patient encounter procedure Mala LARKIN -Laboratory Work Phone: Start: 10-16-2024 End: 10-16-2024 Patient encounter procedure Mala LARKIN -[facility] Work Phone: Start: 10-16-2024 End: 10-16-2024 ambulatory Handy Tourlas Facility:[facility] Start: 10-16-2024 End: 10-16-2024 ambulatory [facility] Facility:[facility] Start: 09-28-2024 End: 09-28-2024 Office outpatient visit 25 minutes Sherwin SALTERC Work Phone: [facility] Comment on above: Diarrhea, unspecifie d type (Primary Dx); Left lower quadrant abdominal pain; Heartburn; Pain of left hip; Primary hypertension Start: 09-28-2024 End: 09-28-2024 ambulatory [facility] Ambulatory Start: 08-10-2024 End: 08-10-2024 ambulatory [facility] Start: 08-09-2024 End: 08-09-2024 ambulatory [facility] Start: 08-04-2024 End: 08-04-2024 Subsequent hospital visit by physician Alfredo Serr[facility] Comment on above: Diarrhea, unspecifie d type; Swelling of abdomen; Left lower quadrant abdominal pain Start: 08-04-2024 End: 08-04-2024 ambulatory RAJINDER Alfonso [facility] Start: 07-10-2024 End: 07-10-2024 Office outpatient visit 15 minutes Rajinder Osei MD MPH Work Phone: [facility] Comment on above: Diarrhea, unspecifie d type (Primary Dx); Swelling of abdomen; Left lower quadrant abdominal pain Start: 07-10-2024 End: 07-10-2024 ambulatory [facility] Ambulatory Start: 05-19-2024 End: 05-19-2024 Periodic preventive med est patient 40-64yrs Rajinder Osei MD MPH Work Phone: [facility] Comment on above: Screening for cardio vascular condition (Primary Dx); Encounter for screening for lung cancer; Prostate cancer screening; Primary hypertension Start: 05-19-2024 End: 05-19-2024 ambulatory [facility] Ambulatory Start: 04-25-2024 End: 04-25-2024 Office outpatient visit 15 minutes Rajinder Osei MD MPH Work Phone: [facility] Comment on above: Lumbar radiculopathy (Primary Dx); Chronic bilateral low back pain with left-sided sciatica; Encounters for administrative purpose Start: 04-03-2024 End: 04-03-2024 ambulatory [facility] Start: 03-07-2024 End: 03-07-2024 ambulatory [facility] Start: 02-15-2024 End: 02-15-2024 Office outpatient visit 15 minutes Rajinder Osei MD MPH Work Phone: [facility] Comment on above: Lipid screening (Smitha yadira Dx); Primary hypertension; Alcohol abuse counseling and surveillance Start: 02-14-2024 End: 02-14-2024 ambulatory [facility] Start: 01-06-2024 End: 01-06-2024 Patient encounter procedure Hay Felipe PULPER OPERATOR-RIP AND GROOVE MACHINE OPERATOR Work Phone: [facility] Comment on above: Low back strain, ini tial encounter (Primary Dx) Start: 11-19-2023 End: 11-19-2023 Subsequent hospital visit by physician Alfredo X-Ray [facility] Comment on above: Neck symptoms Start: 11-16-2023 End: 11-16-2023 Office outpatient visit 15 minutes Rajinder Osei MD MPH Work Phone: [facility] Comment on above: Primary hypertension (Primary Dx); Neck symptoms Start: 07-09-2023 End: 07-09-2023 Office outpatient visit 15 minutes Rajinder Osei MD MPH Work Phone: [facility] Comment on above: Muscle spasm (Primar y Dx); Primary hypertension; Abnormal fasting glucose Start: 05-28-2023 End: 05-28-2023 Office outpatient visit 15 minutes Rajinder Osei MD MPH Work Phone: [facility] Comment on above: Primary hypertension (Primary Dx); Alcohol abuse counseling and surveillance Start: 05-04-[address] Rajinder Osei Facility:[id number] Start: 05-03-[address] Rajinder Osei Facility:[id number] Start: 10-21-2022 ambulatory Provider Pending Facili ty:[id number] Start: 04-21-2022 AUDIT Rajinder Osei MD, MPH Work Phone: [facility] Work Phone: Start: 04-21-2022 Office outpatient vi sit 15 minutes Rajinder Osei MD, MPH Work Phone: [facility] Work Phone: Start: 04-21-2022 ambulatory Provider Pending Facili ty:[id number] Start: 10-13-2021 Patient encounter procedure Rajinder Osei Work Phone: [facility] Work Phone: Start: 09-24-2021 End: 09-24-2021 [facility] Start: 07-24-2021 JAVIER, Provider : Dayan Haji, Status: Pen, Time: 1:00 PM Rajinder Osei Work Phone: [facility] Work Phone: Start: 07-24-2021 Patient encounter procedure Rajinder Nag S Mallapareddi [facility]: Start: 07-22-2021 Patient encounter procedure Rajinder Alfonso Mallapareddi Work Phone: [facility] Work Phone: Start: 07-17-2021 [id number], Provider : Priscila Mills, Status: Pen, Time: 2:45 PM Rajinder Alfonso Mallapareddi [facility] Work Phone: Start: 07-17-2021 Patient encounter procedure Rajinder Alfonso Mallapareddi [facility] Work [facility]: Start: 07-15-2021 Patient encounter procedure Rajinder Alfonso Mallapareddi Work Phone[facility] Work [facility]: Start: 07-10-2021 Patient encounter procedure Rajinder Alfonso Mallapareddi Work Phone: [facility] Work Phone: Start: 07-03-2021 Office outpatient vi sit 15 minutes Rajinder Alfonso Mallapareddi Work Phone: [facility] 300 Work Phone: Start: 06-03-2021 Office outpatient vi sit 15 minutes Rajinder Alfonso Mallapareddi Work Phone: [facility] 300 Work Phone: Start: 05-06-2021 Chart Update Rajinder Alfonso Mallapareddi Work Phone: [facility] 300 Work Phone: Start: 04-30-2021 Office outpatient vi sit 15 minutes Rajinder Alfonso Mallapareddi Work Phone: [facility] 300 Work Phone: Start: 04-30-2021 Patient encounter procedure Rajinder Alfonso Mallapareddi Work Phone: [facility] Work Phone: Start: 03-07-2020 Patient encounter procedure Pasquale Tourlas [facility] Work Phone: Start: 10-02-2019 Patient encounter procedure Pasquale Tourlas [facility] Work Phone: Start: 11-28-2018 End: 11-29-2018 Patient encounter procedure Jamari Ryan Facility:[facility] Start: 11-28-2018 End: 11-29-2018 Patient encounter procedure Jamari Ryan Facility:[facility] Start: 10-12-2018 End: 10-13-2018 Patient encounter procedure Pasquale Tourlas Facility:[facility] Start: 08-30-2018 End: 08-31-2018 Patient encounter procedure Pasquale Tourlas Facility:[facility] Start: 08-30-2018 End: 08-31-2018 Patient encounter procedure Pasquale Tourlas Facility:[facility] Start: 08-16-2018 End: 08-17-2018 Patient encounter procedure Pasquale Tourlas Facility:[facility] Start: 08-15-2018 End: 08-16-2018 Patient encounter procedure Pasquale Tourlas Facility:[facility] Start: 12-23-2017 End: 12-24-2017 Patient encounter procedure Juan Carlos Lawrence Facility:[facility] Start: 12-23-2017 End: 12-24-2017 Patient encounter procedure Juan Carlos Lawrence Facility:[facility] Procedures Date Procedure Procedure Detail Performing Clinician Start: 01-24-2025 Plain X-ray abdomen Dr. Handy Evangelista MD Work Phone: Start: 01-22-2025 Plain X-ray abdomen Dr. Handy Evangelista MD Work Phone: Start: 01-05-2025 Colonoscopy [facility] Start: 11-23-2024 TTE w or w/o fol w/con,stres Sherwin Bello PA-C Work Phone: Start: 11-10-2024 Ultrasound elastogra phy of liver Dr. Handy Evangelista MD Work Phone: Start: 10-25-2024 [address] e detection Dr. Handy Evangelista MD Work Phone: Start: 10-25-[address] Handy Evangelista MD Work Phone: Start: 04-03-2024 Comprehensive metabo lic 2000 panel - Serum or Plasma RAJINDER OSEI Start: 04-03-2024 Cyanocobalamin vitamin b-12 RAJINDER OSEI Start: 04-03-2024 Lipid panel RAJINDER METZ Start: 04-03-2024 Lipid 1996 panel - S ninfa or Plasma Rajinder Osei MD MPH Work Phone: Start: 03-07-2024 FOLLOW UP IN PHYSICA L THERAPY ANYI YODER Start: 02-14-2024 AMB REFERRAL TO PHYS ICAL THERAPY ANYI YODER Start: 03-11-2016 Colonoscopy Rajinder metz MD MPH Work Phone: Appendectomy Pasquale To urlas Operative procedure on foot Pasquale Evangelista Tonsillectomy and adenoidectomy Pasquale Evangelista Plan of Treatment Date Care Activity Detail Author Start: 2039 RSV High Risk: (Elde rly (60+) or Population) (1 - 1-dose 75+ series) RSV High Risk: (Elderly (60+) or Population) (1 - 1-dose 75+ series) [facility] Start: 01-05-2035 Screening for malign ant neoplasm of colon [facility] Start: 04-03-2029 Lipid panel Lipid Panel [facility] Start: 12-23-2027 DTaP/Tdap/Td Vaccine s (2 - Td or Tdap) DTaP/Tdap/Td Vaccines (2 - Td or Tdap) [facility] Start: 08-09-2027 Diabetes mellitus screening Diabetes Screening [facility] Start: 07-21-2026 Diabetes mellitus screening Diabetes Screening [facility] Start: 03-11-2026 Screening for malign ant neoplasm of colon [facility] Start: 11-09-2025 End: 11-09-2025 Patient encounter procedure 11/09/2025 3:20 PM EST Office Visit [facility] [address] [place] [id number] Sherwin Bello PA-C [address] [facility] [address] [place] [address] [facility] Start: 07-23-2025 Influenza vaccination Influenz a Vaccine (Season Ended) [facility] Start: 05-20-2025 Yearly Adult Physical Yearly Adult P hysical [facility] Start: 05-17-2025 End: 05-17-2025 Patient encounter procedure [facility] Start: 05-02-2025 End: 05-02-2026 CBC W Auto Differential panel - Blood CBC and Auto Differential Lab Routine Heartburn Insomnia, unspecified type Anxiety Depression, unspecified depression type Expected: 05/02/2025 (Approximate), Expires: 05/02/2026 [facility] Service Area Work Phone: Comment on above: Expected: 05/02/2025 (Approximate), Expires: 05/02/2026 Start: 05-02-2025 End: 05-02-2026 Comprehensive metabolic 2000 panel - Serum or Plasma Comprehensive metabolic panel Lab Routine Heartburn Insomnia, unspecified type Anxiety Depression, unspecified depression type Expected: 05/02/2025 (Approximate), Expires: 05/02/2026 [facility] Work Phone: Comment on above: Expected: 05/02/2025 (Approximate), Expires: 05/02/2026 Start: 05-02-2025 End: 05-02-2026 Prostate specific Ag [Mass/volume] in Serum or Plasma Prostate Spec.Ag,Screen Lab Routine Prostate cancer screening Expected: 05/02/2025 (Approximate), Expires: 05/02/2026 [facility] Work Phone: Comment on above: Expected: 05/02/2025 (Approximate), Expires: 05/02/2026 Start: 05-02-2025 End: 05-02-2026 TSH with reflex to Free T4 if abnormal TSH with reflex to Free T4 if abnormal Lab Routine Heartburn Insomnia, unspecified type Anxiety Depression, unspecified depression type Expected: 05/02/2025 (Approximate), Expires: 05/02/2026 [facility] Work Phone: Comment on above: Expected: 05/02/2025 (Approximate), Expires: 05/02/2026 Start: 04-02-2025 End: 04-02-2025 Patient encounter procedure 04/02/2025 3:15 PM EDT Office Visit [facility] [address] [place] [id number] Sherwin Bello PA-C [address] [facility] [address] [place], [place] [id number] [facility] Start: 01-05-2025 Colonoscopy w/biopsy single/multiple COLONOSCOPY AND BIOPSY [facility] Start: 01-05-2025 Colsc flx w/rmvl of tumor polyp lesion snare tq COLONOSCOPY W/LESION REMOVAL [facility] Start: 01-05-2025 Egd transoral biopsy single/multiple EGD BIOPSY SINGLE/MULTIPLE [facility] Start: 01-05-2025 Patient discharge [facility] Start: 11-14-2024 End: 11-14-2025 Stress cardiac echo study report Echocardiogram Stress Test Stress Echocardiography Routine Dyspnea on exertion Expected: 11/14/2024 (Approximate), Expires: 11/14/2025 [facility] Service Area Work Phone: Comment on above: Expected: 11/14/2024 (Approximate), Expires: 11/14/2025 Start: 11-14-2024 End: 11-14-2024 Patient encounter procedure 11/14/2024 10:30 AM EST Office Visit [facility] [address] [place] [address] Sherwin Bello PA-C [address] [facility] [address] [place] [address] [facility] Start: 09-28-2024 End: 09-28-2024 Patient encounter procedure 09/28/2024 3:15 PM EST Office Visit [facility] [address] [place] [id number] Sherwin Bello PA-C [address] [facility], [address] [place] [address] [facility] Start: 07-23-2024 COVID-19 Vaccine ( season) COVID-19 Vaccine ( season) [facility] Start: 07-23-2024 COVID-19 Vaccine ( season) COVID-19 Vaccine ( season) [facility] Start: 07-23-2024 Influenza vaccination [facility] Start: 07-10-2024 End: 07-10-2025 CBC W Auto Differential panel - Blood CBC and Auto Differential Lab Routine Diarrhea, unspecified type Swelling of abdomen Expected: 07/10/2024 (Approximate), Expires: 07/10/2025 [facility] Work Phone: Comment on above: Expected: 07/10/2024 (Approximate), Expires: 07/10/2025 Start: 07-10-2024 End: 07-10-2025 Comprehensive metabolic 2000 panel - Serum or Plasma Comprehensive Metabolic Panel Lab Routine Diarrhea, unspecified type Swelling of abdomen Expected: 07/10/2024 (Approximate), Expires: 07/10/2025 [facility] Service Area Work Phone: Comment on above: Expected: 07/10/2024 (Approximate), Expires: 07/10/2025 Start: 07-10-2024 End: 07-10-2025 CT Abdomen WO contrast CT abdomen pelvis wo IV contrast Imaging Routine Diarrhea, unspecified type Swelling of abdomen Left lower quadrant abdominal pain Expected: 07/10/2024, Expires: 07/10/2025 [facility] Work Phone: Comment on above: Expected: 07/10/2024 , Expires: 07/10/2025 Start: 07-10-2024 End: 07-10-2025 Helicobacter pylori Ag [Presence] in Stool by Immunoassay H. pylori antigen, stool Lab Routine Diarrhea, unspecified type Expected: 07/10/2024 (Approximate), Expires: 07/10/2025 [facility] Work Phone: Comment on above: Expected: 07/10/2024 (Approximate), Expires: 07/10/2025 Start: 07-10-2024 End: 07-10-2025 Ova/Para + Giardia/Cryptosporidium Antigen Ova/Para + Giardia/Cryptosporidium Antigen Lab Routine Diarrhea, unspecified type Expected: 07/10/2024 (Approximate), Expires: 07/10/2025 [facility] Work Phone: Comment on above: Expected: 07/10/2024 (Approximate), Expires: 07/10/2025 Start: 07-10-2024 End: 07-17-2024 Stool Pathogen Panel, PCR Stool Pathogen Panel, PCR Microbiology Routine Diarrhea, unspecified type Expected: 07/10/2024 (Approximate), Expires: 07/17/2024 [facility] Work Phone: Comment on above: Expected: 07/10/2024 (Approximate), Expires: 07/17/2024 Start: 05-19-2024 End: 05-19-2024 Patient encounter procedure 05/19/2024 3:40 PM EDT Office Visit [facility] [address] [place] [id number] Rajinder Osei MD MPH [address] [facility], [address] [place] [address] [facility] Start: 05-19-2024 End: 05-19-2025 Basic metabolic 2000 panel - Serum or Plasma Basic Metabolic Panel Lab Routine Primary hypertension Expected: 05/19/2024 (Approximate), Expires: 05/19/2025 [facility] Work Phone: Comment on above: Expected: 05/19/2024 (Approximate), Expires: 05/19/2025 Start: 05-19-2024 End: 05-19-2025 CT Chest for screening CT lung screening low dose Imaging Routine Encounter for screening for lung cancer Expected: 05/19/2024 (Approximate), Expires: 05/19/2025 [facility] Work Phone: Comment on above: Expected: 05/19/2024 (Approximate), Expires: 05/19/2025 Start: 05-19-2024 End: 05-19-2025 CT for calcium scoring WO contrast and CTA W contrast IV Heart and coronary arteries CT cardiac scoring wo IV contrast Imaging Routine Screening for cardiovascular condition Expected: 05/19/2024 (Approximate), Expires: 05/19/2025 [facility] Work Phone: Comment on above: Expected: 05/19/2024 (Approximate), Expires: 05/19/2025 Start: 05-19-2024 End: 05-19-2025 Prostate specific Ag [Mass/volume] in Serum or Plasma PSA Lab Routine Prostate cancer screening Expected: 05/19/2024 (Approximate), Expires: 05/19/2025 [facility] Service Area Work Phone: Comment on above: Expected: 05/19/2024 (Approximate), Expires: 05/19/2025 Start: 2024 RSV patient s and/or patients aged 60+ years (1 - 1-dose 60+ series) RSV patients and/or patients aged 60+ years (1 - 1-dose 60+ series) [facility] Start: 03-21-2024 End: 03-21-2024 ambulatory 03/21/2024 3:15 PM EDT Treatment [facility] [address] [place] [address] Maged Kc, PT [address] [place] [address] [facility] Start: 03-16-2024 End: 03-16-2024 Patient encounter procedure 03/16/2024 3:15 PM EDT Office Visit [facility] Building [address] [place] [address] Rohini Oliva PA-C [address] [place] [address] [facility] Start: 03-14-2024 End: 03-14-2024 ambulatory 03/14/2024 3:15 PM EDT Treatment [address] [place] [address] Maged Kc, PT [address] Rehab Services [place] [phone] [facility] Start: 03-07-2024 End: 03-07-2024 ambulatory 03/07/2024 3:00 PM EDT Treatment [address] [place] [address] Maged Kc, PT [address] [place] [address] [facility] Start: 02-28-2024 End: 02-28-2024 ambulatory 02/28/2024 3:30 PM EDT Treatment [address] [place] [address] Maged Kc, PT [address] [place] [address] [facility] Start: 02-15-2024 End: 02-15-2024 Patient encounter procedure 02/15/2024 3:20 PM EDT Office Visit [facility] [address] [place] [phone] Rajinder Osei MD MPH [address] [facility], [address] [place] [address] [facility] Start: 02-15-2024 End: 02-14-2025 Cobalamin (Vitamin B12) [Mass/volume] in Serum or Plasma Vitamin B12 Lab Routine Alcohol abuse counseling and surveillance Expected: 02/15/2024 (Approximate), Expires: 02/14/2025 [facility] Work Phone: Comment on above: Expected: 02/15/2024 (Approximate), Expires: 02/14/2025 Start: 02-15-2024 End: 02-14-2025 Comprehensive metabolic 2000 panel - Serum or Plasma Comprehensive Metabolic Panel Lab Routine Primary hypertension Expected: 02/15/2024 (Approximate), Expires: 02/14/2025 [facility] Service Area Work Phone: Comment on above: Expected: 02/15/2024 (Approximate), Expires: 02/14/2025 Start: 02-15-2024 End: 02-14-2025 Lipid 1996 panel - Serum or Plasma Lipid Panel Lab Routine Lipid screening Expected: 02/15/2024 (Approximate), Expires: 02/14/2025 [facility] Work Phone: Comment on above: Expected: 02/15/2024 (Approximate), Expires: 02/14/2025 Start: 01-19-2024 End: 01-19-2024 Patient encounter procedure 01/19/2024 3:00 PM EST Office Visit [facility] [address] [place] [address] Rohini Oliva PA-C [address] [place] [address] [facility] Start: 11-16-2023 End: 11-16-2024 XR Cervical spine 2 or 3 Views XR cervical spine 2-3 views Imaging Routine Neck symptoms Expected: 11/16/2023, Expires: 11/16/2024 [facility] Service Area Work Phone: Comment on above: Expected: 11/16/2023 , Expires: 11/16/2024 Start: 10-19-2023 End: 10-19-2023 Patient encounter procedure 10/19/2023 8:20 AM EST Office Visit [facility] [address] [place] [address] Rajinder Osei MD MPH [address] [facility] [place] [phone] [facility] Start: 07-23-2023 COVID-19 Vaccine ( season) COVID-19 Vaccine ( season) [facility] Start: 07-23-2023 Influenza vaccination Influenza Vacc ine (#1) [facility] Start: 07-09-2023 End: 07-09-2024 Hemoglobin A1c/Hemoglobin.total in Blood Hemoglobin A1c Lab Routine Abnormal fasting glucose Expected: 07/09/2023 (Approximate), Expires: 07/09/2024 [facility] Work Phone: Comment on above: Expected: 07/09/2023 (Approximate), Expires: 07/09/2024 Start: 07-09-2023 End: 07-09-2024 Potassium [Moles/volume] in Serum or Plasma Potassium Lab Routine Primary hypertension Expected: 07/09/2023 (Approximate), Expires: 07/09/2024 [facility] Service Area Work Phone: Comment on above: Expected: 07/09/2023 (Approximate), Expires: 07/09/2024 Start: 07-09-2023 End: 07-09-2023 Patient encounter procedure 07/09/2023 7:40 AM EDT Office Visit [facility] [address] [place] [phone] Rajinder Osei MD MPH [address] [facility], [address] [place] [address] [facility] Start: 05-28-2023 End: 05-28-2024 Basic metabolic 2000 panel - Serum or Plasma Basic metabolic panel Lab Routine Primary hypertension Expected: 05/28/2023 (Approximate), Expires: 05/28/2024 [facility] Work Phone: Comment on above: Expected: 05/28/2023 (Approximate), Expires: 05/28/2024 Start: 05-28-2023 End: 05-28-2024 Hepatic function 2000 panel - Serum or Plasma Hepatic function panel Lab Routine Alcohol abuse counseling and surveillance Expected: 05/28/2023 (Approximate), Expires: 05/28/2024 [facility] Service Area Work Phone: Comment on above: Expected: 05/28/2023 (Approximate), Expires: 05/28/2024 Start: 10-21-2022 EPV, Provider: Rajinder Osei, Status: Pen, Time: 9:20 AM EPV, Provider: Rajinder Osei, Status: Pen, Time: 9:20 AM [facility] Work Phone: Start: 07-29-2021 FUV, Provider: Suzie Chaudhari, Status: Pen, Time: 1:30 PM FUV, Provider: Suzie Chaudhari, Status: Pen, Time: 1:30 PM [facility] Work Phone: Start: 07-24-2021 OTRECHECKA, Provider : Dayan Haji, Status: Pen, Time: 1:00 PM OTRECHECKJake, Provider: Dayan Haji, Status: Pen, Time: 1:00 PM [facility] Work Phone: Start: 07-22-2021 OTFUADULT4, Provider : Priscila Mills, Status: Pen, Time: 1:45 PM OTFUADULT4, Provider: Priscila Mills, Status: Pen, Time: 1:[address] [facility] Work Phone: Start: 07-18-2021 FUV, Provider: Suzie Chaudhari, Status: Pen, Time: 11:30 AM FUV, Provider: Suzie Chaudhari, Status: Pen, Time: 11:30 AM [facility] [address] Work Phone: Start: 07-16-2021 OTRECHECKA, Provider : Dayan Haji, Status: Pen, Time: 1:15 PM OTRECHECKA, Provider: Dayan Haji, Status: Pen, Time: 1:15 PM [facility] Work Phone: Start: 07-10-2021 OTEVALADUL, Provider : Dayan Haji, Status: Pen, Time: 2:15 PM OTEVALADUL, Provider: Dayan Haji, Status: Pen, Time: 2:15 PM [facility] [address] Work Phone: Start: 07-03-2021 FUV, Provider: Suzie Chaudhari, Status: Pen, Time: 2:30 PM FUV, Provider: Suzie Chaudhari, Status: Pen, Time: 2:30 PM [facility] [address] Work Phone: Start: 04-24-2021 COVID-19 Vaccine (3 - Booster for Pfizer series) COVID-19 Vaccine (3 - Booster for Pfizer series) [facility] Start: 04-24-2021 COVID-19 Vaccine (3 - Pfizer series) COVID-19 Vaccine (3 - Pfizer series) [facility] Start: 04-24-2021 COVID-19 Vaccine (4 - Pfizer series) COVID-19 Vaccine (4 - Pfizer series) [facility] Start: 2014 Pneumococcal vaccination Pneumococcal Vaccine (1 of 1 - PCV) [facility] Start: 2014 Zoster Vaccines (1 o f 2) Zoster Vaccines (1 of 2) [facility] Start: 1986 DTaP/Tdap/Td Vaccine s (1 - Tdap) DTaP/Tdap/Td Vaccines (1 - Tdap) [facility] Start: 1982 Diabetes mellitus screening Diabetes Screening [facility] Start: 1982 Hepatitis C screening Hepatitis C Sc reening [facility] Start: 1970 Pneumococcal Vaccine : Pediatrics (0 to 5 Years) and At-Risk Patients (6 to 64 Years) (1 - PCV) Pneumococcal Vaccine: Pediatrics (0 to 5 Years) and At-Risk Patients (6 to 64 Years) (1 - PCV) [facility] Start: 1970 Pneumococcal Vaccine : Pediatrics (0 to 5 Years) and At-Risk Patients (6 to 64 Years) (1 of 2 - PCV) Pneumococcal Vaccine: Pediatrics (0 to 5 Years) and At-Risk Patients (6 to 64 Years) (1 of 2 - PCV) [facility] Start: 1965 MMR Vaccines (1 of 1 - Standard series) MMR Vaccines (1 of 1 - Standard series) [facility] Start: 1964 Hepatitis B Vaccines (1 of 3 - 3-dose series) Hepatitis B Vaccines (1 of 3 - 3-dose series) [facility] Start: 1964 HIV screening HIV Screening [facility] Start: 1964 Lipid panel Lipid Panel [facility] Start: 1964 Screening for malign ant neoplasm of colon [facility] Start: 1964 Yearly Adult Physical Yearly Adult P hysical [facility] End: 08-04-2024 CT Abdomen WO contrast [facility] Service Area Work Phone: Comment on above: Once for 1 Occurrenc es starting 08/04/2024 until 08/04/2024 End: 01-27-2025 CT for calcium scoring WO contrast and CTA W contrast IV Heart and coronary arteries [facility] Service Area Work Phone: Comment on above: Once for 1 Occurrenc es starting 01/27/2025 until 01/27/2025 Patient referral [facility] Work Phone: Protein measurement [facility] End: 11-19-2023 XR Cervical spine 2 or 3 Views [facility] Service Area Work Phone: Comment on above: Once for 1 Occurrenc es starting 11/19/2023 until 11/19/2023 Immunizations Immunization Date Immunization Notes Care Provider Fa an 02-27-2021 Pfizer-BioNTech COVID-19 Vacc 30 MCG/0.3ML Intramuscular Suspension Rajinder Nag S Mallapareddi Work Phone: [facility] Work Phone: Comment on above: Series: 01-31-2021 Pfizer-BioNTech COVID-19 Vacc 30 MCG/0.3ML Intramuscular Suspension Rajinder Nag S Mallapareddi Work Phone: [facility] Work Phone: 01-21-2021 Pfizer-BioNTech COVID-19 Vacc 30 MCG/0.3ML Intramuscular Suspension Rajinder Nag S Mallapareddi Work Phone: [facility] Work Phone: Comment on above: Series: 09-19-2020 Influenza, injectabl e, Madin Wingina Canine Kidney, preservative free, quadrivalent Rajinder Keny S Mallapareddi Work Phone: [facility] Work Phone: 09-19-2020 influenza virus vaccine, unspecified formulation [address] Work Phone: 10-02-2019 influenza, injectabl e, quadrivalent, preservative free; Translations: [Flulaval Quadrivalent 0.5 ML Intramuscular Suspension Prefilled Syringe] Pasquale Evangelista [facility] Work Phone: Comment on above: Series: 12-23-2017 tetanus toxoid, reduced diphtheria toxoid, and acellular pertussis vaccine, adsorbed Rajinder Nag S Mallapareddi Work Phone: [facility] 08-09-2013 influenza virus vaccine, whole virus Rajinder Nag S Mallapareddi Work Phone: [facility] Work Phone: Payers Date Payer Category Payer Self-pay 2021 [employer] Juanpablo Esparza ld Managed Care [facility] Member Subscriber Plan / Payer (Effective 2021-Present) Name: Norberto Mullins Relation to Subscriber: Self Name: Norberto Mullins Payer ID: [id number] (NAIC) Type: Not on file Address: [id number] [place] [phone] 2021 Unknown [id number] 2017 Unknown 1964 Unknown [id number] 2.16840.1.302229.3.579. 2. 1964 Unknown [id number] 2.16840.1.684049.3.579. 2 1964 Unknown [id number] 2.16840.1.016307.3.579. 2. 1964 Unknown [id number] 2.16840.1.071979.3.579. 2. 1964 Unknown [id number] 2.16.840.1.317520.3.579. 2. 1964 Unknown [id number] 2.16.840.1.953400.3.579. 2. 1964 Unknown [id number] 2.16.840.1.480217.3.579. 2. 1964 Unknown [id number] 2.16.840.1.227366.3.579. 2. 1964 Unknown [id number] 2.16.840.1.654248.3.579. 2.717 1964 Unknown [id number] 2.16.840.1.294431.3.579. 2.356 1964 Unknown [id number] 2.16.840.1.597090.3.579. 2.356 1964 Unknown [id number] 2.16.840.1.732405.3.579. 2.1069 1964 Unknown [id number] 2.16.840.1.703814.3.579. 2.1069 1964 Unknown [id number] 2.16.840.1.761141.3.579. 2.1244 1964 Unknown [id number] 2.16.840.1.433572.3.579. 2.1244 1964 Unknown [id number] 2.16840.1.068693.3.579. 2.1244 1964 Unknown [id number] 2.16.840.1.559922.3.579. 2.1242 1964 Unknown [id number] 2.16.840.1.233416.3.579. 2.1242 1964 Unknown [id number] 2.16.840.1.380042.3.579. 2.3 1964 Unknown [id number] 2.16840.1.461443.3.579. 2.1242 1964 Unknown [id number] 2.16.840.1.010161.3.579. 2.1242 1964 Unknown [id number] 2.16.840.1.476469.3.579. 2.1243 1964 Unknown [id number] 2.16.840.1.228129.3.579. 2.1243 1964 Unknown [id number] 2.16.840.1.771528.3.579. 2.1243 1964 Unknown [id number] 2.16.840.1.502105.3.579. 2.1244 1964 Unknown [id number] 2.16.840.1.425073.3.579. 2.1244 1964 Unknown [id number] 2.16.840.1.542486.3.579. 2.1244 Unknown [id number] 2.16.840.1.907551.3.579. 2.462 Unknown [id number] 2.16.840.1.078992.3.579. 2.462 Unknown [id number] 2.16.840.1.576332.3.579. 2.462 Unknown [id number] 2.16.840.1.905776.3.579. 2.462 Unknown [id number] 2.16.840.1.752514.3.579. 2.462 Unknown [id number] 2.16.840.1.347081.3.579. 2.462 Unknown [id number] 2.16.840.1.049652.3.579. 2.462 Unknown [id number] 2.16.840.1.228641.3.579. 2.462 Unknown [id number] 2.16.840.1.346299.3.579. 2.462 Unknown [id number] 2.16.840.1.597509.3.579. 2.462 Unknown [id number] 2.16.840.1.878248.3.579. 2.462 Unknown [id number] 2.16.840.1.565402.3.579. 2.462 Social History Date Type Detail Facility Start: 05-28-2023 End: 05-02-2025 Current every day smoker Current every day smoker -[facility] Work Phone: Tobacco smoking consumption unknown [facility] Start: 04-30-2023 End: 01-18-2025 Tobacco smoking status DEIS Smokes tobacco daily [facility] Work Phone: History of tobacco use Cigar Smoker [facility] Work Phone: Start: 04-30-2023 End: 05-02-2025 Tobacco use and exposure Smokeless tobacco non-user [facility] Work Phone: Start: 05-28-2023 End: 11-14-2024 Alcohol intake Current drinker of alcohol (finding) [facility] Work Phone: Start: 05-28-2023 End: 05-02-2025 Tobacco use panel [facility] Work Phone: Start: 04-30-2023 Alcohol Comment Drinks everyday [facility] Work Phone: Start: 1965 Sex Assigned At Not on file [facility] Work Phone: Start: 05-18-2023 End: 05-02-2025 Exposure to SARS-CoV-2 (event) Not sure [facility] Start: 11-14-2024 End: 05-02-2025 Tobacco smoking status NHIS Ex-smoker [facility] Work Phone: History of tobacco use Current smoker [facility] Work Phone: Start: 1965 Sex assigned at Male [facility] Start: 01-27-2025 Gender identity Identifies as male gender (finding) [facility] Work Phone: Start: 01-27-2025 Sexual orientation Heterosexual (fin ding) [facility] Work Phone: Start: 02-01-2025 End: 02-05-2025 Sex Male (finding) [facility] Start: 05-02-2025 Alcoholic beverage intake Ex-drinker (finding) [facility] Work Phone: Start: 05-02-2025 Tobacco Comment Last day for t obacco was 04/20/25 [facility] Work Phone: Start: 05-02-2025 Alcohol Comment last day was 03/05/25 [facility] Work Phone: NEGATED: Highlighted row - - [facility] Work Phone: Goals Date Patient Goal Desired Activity /State Functional Status Date Assessment Result Facility 05-02-2025 Patient Health Questionnaire 2 item (PHQ-2) [Reported] [facility] Work Phone: NEGATED: Highlighted row Functional performance Functional status health issues are not documented Disease [facility] Work Phone: Mental Status Date Assessment Result Facility 01-05-2025 Cognitive function Level Of Cons ciousness Awake;Alert;Appropriate [facility] Work Phone: 01-05-2025 Cognitive function Voice/Name [facility] Work Phone: NEGATED: Highlighted row Cognitive function [Interpretation] Cognitive status health issues are not documented Disease [facility] Work Phone: Clinical Notes 03-20-2021 to 05-17-2025 Sherwin Bello PA-C - 05/17/2025 3:40 PM EDTLADAN Springer - 05/02/2025 3:00 PM EDT Note Date & Type Note Facility 05-17-2025 History of Present illness Narrative Subjective Patient ID: Norberto Mullins is a 60 y.o. male who presents for Follow-up (6 month). HPI ABDOMINAL PAIN: Following with GI silver. Will have scope soon, should have improved since he quit drinking alcohol and smoking. HTN: BP 128/89 today in office. Usually 130s/80 at home. Compliant with current regimen, no SE. BL SHOULDER ARTHRITIS: Injection years ago helpful in R, R worse than L, both causing pain most days. Meloxicam not helpful in the past. ANXIETY/DEPRESSION: Stable on Buspar/duloxetine. GERD: Stable on Protonix, no SE. INSOMNIA: Trazodone nightly helpful. Has seen Dr. Nixon Review of Systems Constitutional: Negative. Respiratory: Negative. Cardiovascular: Negative. Gastrointestinal: Negative. Objective BP 128/90 (Patient Position: Sitting) Pulse 76 Ht 1.803 m (5' 11) Wt 86.2 kg (190 lb) BMI 26.50 kg/m Physical Exam Constitutional: General: He is not in acute distress. Appearance: Normal appearance. He is not ill-appearing. HENT: Head: Normocephalic and atraumatic. Eyes: Extraocular Movements: Extraocular movements intact. Conjunctiva/sclera: Conjunctivae normal. Cardiovascular: Rate and Rhythm: Normal rate. Pulmonary: Effort: Pulmonary effort is normal. Abdominal: General: There is no distension. Musculoskeletal: General: Normal range of motion. Cervical back: Normal range of motion. Skin: General: Skin is warm and dry. Neurological: General: No focal deficit present. Mental Status: He is alert and oriented to person, place, and time. Psychiatric: Mood and Affect: Mood normal. Behavior: Behavior normal. Thought Content: Thought content normal. Judgment: Judgment normal. Assessment/Plan Chronic conditions stable. No medication changes today. Get nonfasting labs today. Follow up 6 months or sooner prn. documented in this encounter [facility] Work Phone: 05-02-2025 History of Present illness Narrative Subjective Patient ID: Norberto Mullins is a 60 y.o. male who presents for Medication Check. 60 yo male patient with history of htn and alcohol abuse. States he was recently discharged from rehab. Doing well, states feeling much better since he stopped most of his medications. Noted his BP's at home have been low and stopped all his bp meds. He also is sleeping better so he cut his Trazodone in half. Feels his anxiety and depression is controlled with the medications he is currently taking. Needs refills, has appt with pcp next month but, he was going to run. Review of Systems Constitutional: Negative for fever. HENT: Negative. Respiratory: Negative for cough, shortness of breath and wheezing. Cardiovascular: Negative for chest pain and palpitations. Gastrointestinal: Negative for abdominal distention, abdominal pain, constipation, diarrhea, nausea and vomiting. Genitourinary: Negative. Objective Physical Exam Vitals and nursing note reviewed. Constitutional: General: He is not in acute distress. HENT: Head: Normocephalic. Cardiovascular: Rate and Rhythm: Normal rate and regular rhythm. Pulses: Normal pulses. Heart sounds: Normal heart sounds. No murmur heard. No friction rub. No gallop. Pulmonary: Effort: Pulmonary effort is normal. Breath sounds: Normal breath sounds. No wheezing, rhonchi or rales. Abdominal: General: Bowel sounds are normal. Musculoskeletal: Right lower leg: No edema. Left lower leg: No edema. Skin: General: Skin is warm and dry. Neurological: Mental Status: He is alert and oriented to person, place, and time. Psychiatric: Mood and Affect: Mood normal. BP 147/87 Pulse 76 Ht 1.803 m (5' 11) Wt 87.5 kg (193 lb) SpO2 99% BMI 26.92 kg/m Current Medications[1] Medical History[2] Surgical History[3] Family History[4] Assessment/Plan Problem List Items Addressed This Visit None Visit Diagnoses Insomnia, unspecified type - Primary Relevant Medications traZODone (Desyrel) 150 mg tablet Other Relevant Orders CBC and Auto Differential Comprehensive metabolic panel TSH with reflex to Free T4 if abnormal Heartburn Relevant Medications pantoprazole (ProtoNix) 40 mg EC tablet Other Relevant Orders CBC and Auto Differential Comprehensive metabolic panel TSH with reflex to Free T4 if abnormal Anxiety Relevant Medications busPIRone (Buspar) 7.5 mg tablet Other Relevant Orders CBC and Auto Differential Comprehensive metabolic panel TSH with reflex to Free T4 if abnormal Depression, unspecified depression type Relevant Medications DULoxetine (Cymbalta) [address] capsule busPIRone (Buspar) 7.5 mg tablet Other Relevant Orders CBC and Auto Differential Comprehensive metabolic panel TSH with reflex to Free T4 if abnormal Prostate cancer screening Relevant Orders Prostate Spec.Ag,Screen Check bp at home daily. If BP goes above 140/90, he is to make pcp aware. Meds refilled. Labs due by Jul 2025. Keep appt with pcp next month. [1] Current Outpatient Medications: Voquezna 20 mg tablet, 20 mg., Disp: , Rfl: busPIRone (Buspar) 7.5 mg tablet, Take 1 tablet (7.5 mg) by mouth 2 times a day., Disp: 180 tablet, Rfl: 0 DULoxetine (Cymbalta) [address] capsule, Take 1 capsule (60 mg) by mouth once daily., Disp: 90 capsule, Rfl: 0 loperamide (Imodium) 2 mg capsule, Take 1 capsule (2 mg) by mouth once daily., Disp: , Rfl: pantoprazole (ProtoNix) 40 mg EC tablet, Take 1 tablet (40 mg) by mouth once daily. Do not crush, chew, or split., Disp: 90 tablet, Rfl: 0 traZODone (Desyrel) 150 mg tablet, Take 0.5 tablets (75 mg) by mouth once daily at bedtime., Disp: 45 tablet, Rfl: 0 [2] History reviewed. No pertinent past medical history. [3] Past Surgical History: Procedure Laterality Date DENTAL SURGERY 05/04/2024 OTHER SURGICAL HISTORY 10/02/2019 Foot surgery OTHER SURGICAL HISTORY 10/02/2019 Tonsillectomy with adenoidectomy OTHER SURGICAL HISTORY 10/02/2019 Appendectomy [4] Family History Problem Relation Name Age of Onset Colon cancer Mother's Brother documented in this encounter [facility] Work Phone: 01-24-2025 Radiology Diagnostic study note [facility] Imaging Services [address] [place] [address] [id number] Abdomen Single View MR#: [id number] Acct: [id number] Name: NORBERTO MULLINS Rep #: [id number] : 1965 M 59 From: Narcisa Lopez MD PCP: ROSSANA Scales Status: REG CLI Study:Abdomen Single View Date of Exam: 01/24/25 Exam# [id number] Ordering Dr: Mala Hill ARGON TESTER-Pricila PROCEDURE: ABDOMEN SINGLE VIEW REASON FOR EXAM: 59-year-old male, day 5 Sitz marker evaluation. TECHNIQUE: Single view abdomen. COMPARISON: Abdominal radiographs 01/22/2025. FINDINGS: No radiopaque Sitz markers on the visualized abdominal field. Surgical clips overlying the bilateral testes, likely surgical clips from prior vasectomy. Bowel gas pattern is normal. No evidence of bowel obstruction. No suspicious calcifications. There are degenerative changes of the spine. RAD/Abdomen Single View IMPRESSION: No visualized Sitz markers. Reading Location: [id number] CC: TRAE Hill; ROSSANA Scales ~ Client Services Assistant: Signed [facility] 01-23-2025 Radiology Diagnostic study note [facility] Imaging Services [address] [facility] [address] [place], [place] [address] Abdomen Single View MR#: [id number] Acct: [id number] Name: NORBERTO MULLINS Rep #: [id number] : 1965 M 59 From: Nicol Culver MD PCP: ROSSANA Scales Status: REG CLI Study:Abdomen Single View Date of Exam: 01/22/25 Exam# [id number] Ordering Dr: Mala Hill EXAM: XR Abdomen, 1 View CLINICAL INDICATION: TECHNIQUE: Frontal supine view of the abdomen/pelvis. COMPARISON: No relevant prior studies available. FINDINGS: GASTROINTESTINAL TRACT: Unremarkable. No dilation. BONES/JOINTS: Unremarkable. No acute fracture. RAD/Abdomen Single View IMPRESSION: Nonobstructive bowel gas pattern. Reading Location: [facility] CC: TRAE Hill; ROSSANA Scales ~ Client Services Assistant: Signed [facility] 01-18-2025 Evaluation note Diagnosis Onset Date Resolution Alcohol abuse acute January 182024 3:12pm Constipation acute December 3:12pm Diarrhea acute January 18, 2025 3:12pm Esophagitis acute December 3:12pm Fecal urgency acute January 182024 3:12pm Diarrhea acute May 07 3:07pm Esophagitis acute May 07 3:07pm Fecal incontinence acute April 222024 3:07pm Fecal urgency acute May 07, 2025 3:07pm [facility] Work Phone: 1(487) 721-133902-14-2025 [facility] Medical Records Department [address] [place] [address] History Physical Exam 01/05/25 1531 MR#: [id number] Acct: [id number] Name: NORBERTO MULLINS Rep #: [id number] : 1965 59 From: Riky Friend DO PCP: ROSSANA Scales Status:REG [facility] Location: [place] [address] HPI - General General Date of Admission: 01/05/25 Date of Service: 01/05/25 Chief Complaint: Abdominal pain and diarrhea HPI Narrative NORBERTO MULLINS, is a 59 M who presents for an EGD and colonoscopy regarding abdominal pain and diarrhea LABS 08/09/2024 HGB 11.5, K+ 3.3, Fe panel WNL, Ferritin 708 08/15/2024 O P, Giardia, H. pylori, Cryptosporidium were all negative CT A P 08/04/2024 The liver demonstrates a normal noncontrast attenuation. Interval increase in size in the low attenuating lesions within the left and right hepatic lobe, the largest measures 1.8 cm in liver segment 3 (series 3, image 31), previously measured 0.6 cm. These are most compatible with benign liver cysts. Multiple new calcified splenic granulomas. Newly mildly prominent bilateral inguinal lymph nodes measuring 1.0 cm bilaterally. They demonstrate normal morphology. No acute retroperitoneal abnormality. - diarrhea, nausea and LLQ pain x4-5 months - diarrhea every morning - every hour - can be a small amount - occasional blood - BRBPR - can color the water red - denies any rectal pain - c/o bloating - pain is in the lower abdomen - pain can be worse with a BM - pain is not intense 3/10 - abdominal cramping - he started pantoprazole in the past 2 weeks - denies any family h/o celiac, or colon CA - maternal uncle with colon cancer - reports he is feeling feverish - he does experience some SOB - ongoing for the past 18 months - reports since starting BP med this has helped - denies any h/o cardiac w/u - he reports he is SOB taking out the trash - to the point now that he is taking the trash down in his car because of GONZALEZ EtOH 15-20 shots of bourbon or whisky a day for many years - anemia - reports without alcohol he cannot sleep - makes him feel guilty - 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 He started pantoprazole 40mg daily two weeks ago without improvement. LLQ Pain is 3/10 and can worsen with a BM. He also experiences occasional BRBPR with BM. He denies any improvement with Metamucil. Labs completed 08/09/2024 revealed mild anemia with normal Fe panel. Ferritin is elevated; however, this is likely secondary to large quantities of daily alcohol intake. CT completed 08/04/2024 revealed enlargement of liver lesions; likely cysts. He denies having any desire to cease alcohol intake and we have discussed risks including if he continues to consume daily alcohol. [facility] Medical History Wears glasses Wears dentures Alcohol use Marijuana use Open wound Bladder disease Arthritis Back pain History of GI bleed History of IBS Smoker Shortness of breath on exertion History of echocardiogram History of stress test Primary hypertension Pain of left hip Heartburn Diarrhea Home Medications ???Medication ???Instructions ???Recorded ???Last Taken ???Type amlodipine 5 mg tablet 5 mg PO QDAY 10/11/24 01/05/25 His tory losartan 100 mg tablet 100 mg PO QDAY 10/11/24 01/05/25 H istory pantoprazole 40 mg tablet,delayed 40 mg PO QDAY 10/11/24 Unknown Hi story release loperamide 2 mg capsule (Imodium 4 mg PO DAILY 01/04/25 Unknown His tory A-D) Allergy/AdvReac Type Severity Reaction Status Date / Time No Known Allergies Allergy Verified 01/05/25 13:38 Surgical History History of nasal surgery History of tooth extraction History of colonoscopy History of appendectomy History of tonsillectomy and adenoidectomy History of foot surgery Social History Smoking Status: Current every day smoker (Patient smoked today.) tobacco type: cigarettes alcohol intake: current details: drinking about 15-20 1oz shots of alcohol nightly ROS Constitutional Constitutional: Denies fatigue, fever(s), poor appetite, weight gain or weight loss Gastrointestinal Gastrointestinal: Denies belching, bloating, change in bowel habits, change in stool character, chewing difficulty, coffee ground emesis, constipation, cramping, diarrhea, dyspepsia, dysphagia, early satiety, excessive flatus, fecal incontinence, heartburn, hematemesis, hematochezia, hemorrhoids, loos (more content not included)...[facility] 11-14-2024 History of Present illness Narrative* Sherwin Bello PA-C - 11/14/2024 10:30 AM EST Subjective Patient ID: Norberto Mullins is a 59 y.o. male who presents for pt here for 6 month med check (Ptc/o bilateral shoulder pain , did have cortisone shots in the past ). HPI ABDOMINAL PAIN: Following with [facility]. Will have upper and lower scopes in Dec. Requesting stress test before these d/t GONZALEZ. HTN: BP 142/82 today in office. Usually 130s/80 at home. Compliant with current regimen, no SE. BL SHOULDER ARTHRITIS: Injection years ago helpful in R, R worse than L, both causing pain most days. Meloxicam not helpful in the past. Review of Systems Constitutional: Negative. Respiratory: Negative. Cardiovascular: Negative. Gastrointestinal: Negative. Objective BP 132/80 Pulse 74 Ht 1.803 m (5' 11) Wt 84.8 kg (187 lb) SpO2 97% BMI 26.08 kg/m Physical Exam Constitutional: General: He is not in acute distress. Appearance: Normal appearance. He is not ill-appearing. HENT: Head: Normocephalic and atraumatic. Eyes: Extraocular Movements: Extraocular movements intact. Conjunctiva/sclera: Conjunctivae normal. Cardiovascular: Rate and Rhythm: Normal rate. Pulmonary: Effort: Pulmonary effort is normal. Abdominal: General: There is no distension. Musculoskeletal: General: Normal range of motion. Cervical back: Normal range of motion. Skin: General: Skin is warm and dry. Neurological: General: No focal deficit present. Mental Status: He is alert and oriented to person, place, and time. Psychiatric: Mood and Affect: Mood normal. Behavior: Behavior normal. Thought Content: Thought content normal. Judgment: Judgment normal. Assessment/Plan Stress test ordered. Advised Volteran gel and turmeric inflammation. Follow up 6 months or sooner prn. [facility] Phone: 1(238) 235-186112-24-2024 Instructions* Patient Instructions* Sherwin Bello PA-C - 11/14/2024 10:30 AM EST Look for Volteran gel (diclofenac sodium) for joint pain. Look into Turmeric for inflammation. [facility] Work Phone: 1(373) 743-519711-25-2024 Evaluation note* Diagnosis Onset Date Resolution Status Admit Date Alcohol abuse acute October 162023 3:24pm Diarrhea acute October 16, 2024 3:24pm Fecal urgency acute October 162023 3:24pm LLQ pain acute October 16, 2024 3:24pm Abdominal pain acute December 232024 1:06pm Diarrhea acute January 05, 2025 1:06pm Heartburn acute January 05, 2025 1:06pm LLQ pain acute January 05, 2025 1:06pm Alcohol abuse acute January 182024 3:12pm Constipation acute December 3:12pm Diarrhea acute January 18, 2025 3:12pm Esophagitis acute December 3:12pm Fecal urgency acute January 182024 3:12pm [facility] Work Phone: 1(348) 877-508711-07-2024 History of Present illness Narrative* Sherwin Bello PA-C - 09/28/2024 3:15 PM EST Subjective Patient ID: Norberto Mullins is a 59 y.o. male who presents for pt here for month med check (Pt is having left hip pain ). HPI HTN: BP 142/82 today in office. Usually 130s/80 at home. Compliant with current regimen, no SE. L hip pain, chronic, tripped a couple of times recently, he does endorse arthritis, has not tried medication for this. Dr. Garcia had been working up lower abdominal pain/bloating/blood in stool. CT about 2 months ago showed no real cause of symptoms. Blood will be bright red and intermittent. Too soon for screening colonoscopy. Daily diarrhea almost ever hour, stool samples unremarkable. Has tried fiber with no improvement. Endorses stomach seem swollen. Drinking about 15-20 1oz shots of alcohol nightly. Endorses intermittent heartburn as well recently. Review of Systems Constitutional: Negative. Respiratory: Negative. Cardiovascular: Negative. Gastrointestinal: Positive for abdominal pain. Objective BP 142/82 Pulse 85 Ht 1.803 m (5' 11) Wt 85.7 kg (189 lb) SpO2 95% BMI 26.36 kg/m Physical Exam Constitutional: General: He is not in acute distress. Appearance: Normal appearance. He is not ill-appearing. HENT: Head: Normocephalic and atraumatic. Eyes: Extraocular Movements: Extraocular movements intact. Conjunctiva/sclera: Conjunctivae normal. Cardiovascular: Rate and Rhythm: Normal rate. Pulmonary: Effort: Pulmonary effort is normal. Abdominal: Tenderness: There is no abdominal tenderness. Musculoskeletal: General: Normal range of motion. Cervical back: Normal range of motion. Skin: General: Skin is warm and dry. Neurological: General: No focal deficit present. Mental Status: He is alert and oriented to person, place, and time. Psychiatric: Mood and Affect: Mood normal. Behavior: Behavior normal. Thought Content: Thought content normal. Judgment: Judgment normal. Assessment/Plan Rx protonix Rx meloxicam prn Referral to GI and thank you Follow up 6 months or sooner prn documented in this [facility] Work Phone: 1(253) 551-415808-19-2024 History of Present illness Narrative* Rajinder Osei MD MPH - 07/10/2024 4:00 PM EDT Subjective Patient ID: Norberto Mullins is a 59 y.o. male who presents for Sick. HPI PT is here today for his stomach growing in size over the last 6 weeks, reports on Wednesday he noticed it appeared to be smaller. States he was never in constant pain, it was intermittent. Reports sitting was uncomfortable. Reports he has a lot of gas but denies N/V. Denies diet affected, but reportswhen he would eat and then sit down, it was more uncomfortable. Reports he gets may faster. Reports he has diarrhea all the time, but denies blood. Has taken anti acids but those do not help. Dinks about 12-20 shots of alcohol. Not interested in reducing the consumption. Extensive discussion about the harms and strategies to reduce the consumption. Review of Systems ROS negative except discussed above in HPI. Vitals: 07/10/24 1556 BP: 140/86 Pulse: 75 SpO2: 95% Objective Physical Exam Constitutional: Appearance: Normal appearance. Abdominal: General: Abdomen is flat. Bowel sounds are normal. There is distension. Palpations: Abdomen is soft. There is no mass. Tenderness: There is no abdominal tenderness. There is no guarding or rebound. Hernia: No hernia is present. Neurological: Mental Status: He is alert. Assessment/Plan Norberto was seen today for sick. Diagnoses and all orders for this visit: Diarrhea, unspecified type (Primary) - Comprehensive Metabolic Panel; Future - CBC and Auto Differential; Future - CT abdomen pelvis wo IV contrast; Future - Ova/Para + Giardia/Cryptosporidium Antigen; Future - Stool Pathogen Panel, PCR; Future - H. pylori antigen, stool; Future Swelling of abdomen - Comprehensive Metabolic Panel; Future - CBC and Auto Differential; Future - CT abdomen pelvis wo IV contrast; Future Left lower quadrant abdominal pain - CT abdomen pelvis wo IV contrast; Future Follow up as needed. Rajinder Osei MD MPH [facility] Work Phone: 1(245) 686-812606-28-2024 History of Present illness Narrative* Rajinder Osei MD MPH - 05/19/2024 3:40 PM EDT Subjective Patient ID: Norberto Mullins is a 59 y.o. male who presents for annual physical (Pt is here todayfor 3 month FUV. Lipid due 04/03/29. Colonoscopy good until 03/11/26). HPI Here for annual check and to discuss about hypertension. Here for follow up regarding hypertension. Discussed about screenings that he is due. Lung cancer screening - smoked for about 41 years. Currently smoking. Coronary calcium score- has HTN. Prostate cancer screening test - PSA ordered. Review of Systems ROS negative except discussed above in HPI. Vitals: 05/19/24 1537 BP: 146/84 Pulse: 81 SpO2: 96% Objective Physical Exam Constitutional: Appearance: Normal appearance. HENT: Right Ear: Tympanic membrane, ear canal and external ear normal. Left Ear: Tympanic membrane, ear canal and external ear normal. Neck: Vascular: No carotid bruit. Comments: Normal thyroid exam Cardiovascular: Rate and Rhythm: Normal rate and regular rhythm. Pulses: Normal pulses. Pulmonary: Effort: Pulmonary effort is normal. No respiratory distress. Breath sounds: Normal breath sounds. Musculoskeletal: Cervical back: Normal range of motion and neck supple. No tenderness. Lymphadenopathy: Cervical: No cervical adenopathy. Skin: General: Skin is warm and dry. Neurological: General: No focal deficit present. Mental Status: He is alert and oriented to person, place, and time. Mental status is at baseline. Psychiatric: Mood and Affect: Mood normal. Behavior: Behavior normal. Thought Content: Thought content normal. Judgment: Judgment normal. Assessment/Plan Norberto was seen today for follow-up. Diagnoses and all orders for this visit: Screening for cardiovascular condition (Primary) - CT cardiac scoring wo IV contrast; Future Encounter for screening for lung cancer - CT lung screening low dose; Future Prostate cancer screening - PSA; Future Primary hypertension - amLODIPine (Norvasc) 5 mg tablet; Take 1 tablet (5 mg) by mouth once daily. - losartan (Cozaar) 100 mg tablet; Take 1 tablet (100 mg) by mouth once daily. - Basic Metabolic Panel; Future Follow up in 6 months. Discussed with patient that I will be leaving [facility] at the end of June. Discussed options to transfer care. Rajinder Osei MD MPH [facility] Work Phone: 1(126) 453-644006-28-2024 Instructions* Patient Instructions* Rajinder Osei MD MPH - 05/19/2024 3:40 PM EDT Start taking half of Amlodipine 10 mg tablet. Take two of Losartan. 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 male who presents for FMLA (PT is here today for FMLA paper work to be filled out. ). HPI Here for FMLA paperwork for intermittent absence from work due to back pain. This has been ongoing since 2008. Patient reports that he has had an episode of flareup about 5 weeks ago. Due to this he has not been able to go to work. Has not missed work since then. 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 Reports that he missed work earlier this year, but not so much now. Has taken up new position which is not as taxing as before. Review of Systems ROS negative except discussed above in HPI. Vitals: 04/25/24 1556 BP: 144/88 Pulse: 94 SpO2: 97% Objective Physical Exam Constitutional: Appearance: Normal appearance. Neurological: Mental Status: He is alert. Assessment/Plan Norberto was seen today for fmla. Diagnoses and all orders for this visit: Lumbar radiculopathy (Primary) Chronic bilateral low back pain with left-sided sciatica Encounters for administrative purpose Follow up as scheduled. Rajinder Osei MD MPH [facility] Phone: 1([phone]) 744-287203-26-2024 History of Present illness Narrative* Rajinder Osei MD MPH - 02/15/2024 3:20 PM EDT Subjective Patient ID: Norberto Mullins is a 58 y.o. male who presents for Follow-up (PT is here today for 3month FUV ). HPI Here for follow up. HTN: Patient has improved his diet. His blood pressure is significantly better than the previous blood pressure readings. Will continue to monitor without any medication. Drinks about 12 shots of liquor per day. Does not have any interest in quitting alcohol consumptionat this time. Encouraged to reduce the amount at least. Discussed the potential complications of alcohol abuse. Patient understands this. Review of Systems ROS negative except discussed above in HPI. Vitals: 02/15/24 1522 BP: 142/80 Pulse: 78 SpO2: 97% Objective Physical Exam Constitutional: Appearance: Normal appearance. Cardiovascular: Rate and Rhythm: Normal rate and regular rhythm. Pulmonary: Effort: Pulmonary effort is normal. Breath sounds: Normal breath sounds. Neurological: Mental Status: He is alert. Assessment/Plan Norberto was seen today for follow-up. Diagnoses and all orders for this visit: Lipid screening (Primary) - Lipid Panel; Future Primary hypertension - amLODIPine (Norvasc) 10 mg tablet; Take 1 tablet (10 mg) by mouth once daily. - losartan (Cozaar) 50 mg tablet; Take 1 tablet (50 mg) by mouth once daily. - Comprehensive Metabolic Panel; Future Alcohol abuse counseling and surveillance - Vitamin B12; Future Follow up in 3 months. Rajinder Osei MD MPH [facility] Work Phone: 1([phone]) 932-788703-26-2024 Instructions* Patient Instructions* Rajinder Osei MD MPH - 02/15/2024 3:20 PM EDT Reduce salt intake. Take Vit B12 and folate supplement. 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 male presents for evaluation of low back pain that radiates up flank region bilaterally that began a few days ago after patient bent over to put pants on. Has a history of this. Is scheduled to follow-up with pain management at the end of the month. Denies change in bowel or bladder control, abdominal pain or any other associated symptom or complaint. No OTC meds or symptom management. Noother complaints. Vitals: 01/06/24 1114 BP: (!) 162/98 Pulse: 105 Resp: 18 Temp: 36.9 C (98.5 F) SpO2: 98% No Known Allergies Medication Documentation Review Audit Reviewed by Susy Montenegro MA (Chummer) on 01/06/24 at 1113 Medication Order Taking? Sig Documenting Provider Last Dose Status amLODIPine (Norvasc) 10 mg tablet [id number] Yes Take 1 tablet (10 mg) by mouth once daily. Rajinder Osei MD MPH Taking Active losartan (Cozaar) 50 mg tablet [id number] Yes Take 1 tablet (50 mg) by mouth once daily. Rajinder Osei MD MPH Taking Active omeprazole OTC (PriLOSEC OTC) 20 mg EC tablet [id number] No Take 1 tablet (20 mg) by mouth once dailyin the morning. Take before meals. Do not crush, chew, or split. Historical ProviderMD Not TakingActive No past medical history on file. Past Surgical History: Procedure Laterality Date OTHER SURGICAL HISTORY 10/02/2019 Foot surgery OTHER SURGICAL HISTORY 10/02/2019 Tonsillectomy with adenoidectomy OTHER SURGICAL HISTORY 10/02/2019 Appendectomy ROS See HPI Physical Exam Vitals reviewed. Constitutional: General: He is not in acute distress. Appearance: Normal appearance. He is normal weight. He is not ill-appearing, toxic-appearing or diaphoretic. Musculoskeletal: Lumbar back: Spasms and tenderness present. No swelling, edema, deformity or signs of trauma. Decreased range of motion. Skin: General: Skin is warm and dry. Neurological: General: No focal deficit present. Mental Status: He is alert and oriented to person, place, and time. Psychiatric: Mood and Affect: Mood normal. Behavior: Behavior normal. Assessment/Plan/MDM Norberto was seen today for back pain. Diagnoses and all orders for this visit: Low back strain, initial encounter (Primary) - predniSONE (Deltasone) 10 mg tablet; Take 6 tablets (60 mg) by mouth once daily for 1 day, THEN 5tablets (50 mg) once daily for 1 day, THEN 4 tablets (40 mg) once daily for 1 day, THEN 3 tablets (30 mg) once daily for 1 day, THEN 2 tablets (20 mg) once daily for 1 day, THEN 1 tablet (10 mg) oncedaily for 1 day. - cyclobenzaprine (Flexeril) 10 mg tablet; Take 1 tablet (10 mg) by mouth 3 times a day as needed for muscle spasms. Patient's clinical presentation is otherwise unremarkable at this time. Patient is discharged with instructions to follow-up with primary care or seek emergency medical attention for worsening symptoms or any new concerns. Hay Felipe CNP [facility] [phone] [facility] Work Phone: 1(320) 498-358012-26-2023 History of Present illness Narrative* Rajinder Osei MD MPH - 11/16/2023 4:00 PM EST Subjective Patient ID: Norberto Mullins is a 58 y.o. male who presents for Follow-up (PT is here today for 3month FUV. ). HPI Here for follow-up. HTN: BP is still high. Reports that most of the home readings are in normal ranges. Reports that some days blood pressure is high. Denies chest pain, palpitations, shortness of breath, headache or blurry vision. Has not been taking amlodipine since increasing losartan. Plan: Recommended to take amlodipine along with losartan. He can increase the dose of amlodipine judith few weeks if blood pressure does not improve. Neck popping: Reports his neck has been cracking and popping more than he remembers. Denies pain.Denies injury to the area. Reports its been going on for the last month. No acute concerning symptoms. Will get Xray if symptoms are not improving or worsening. Review of Systems ROS negative except discussed above in HPI. Vitals: 11/16/23 1619 BP: (!) 170/94 Pulse: 79 SpO2: 97% Objective Physical Exam Constitutional: Appearance: Normal appearance. Cardiovascular: Rate and Rhythm: Normal rate and regular rhythm. Pulmonary: Effort: Pulmonary effort is normal. Breath sounds: Normal breath sounds. Musculoskeletal: Cervical back: Normal range of motion and neck supple. Comments: Mild abnormal sensation noticed while patient is moving his neck in the right paraspinal area. Lymphadenopathy: Cervical: No cervical adenopathy. Neurological: Mental Status: He is alert. Assessment/Plan Norberto was seen today for follow-up. Diagnoses and all orders for this visit: Primary hypertension (Primary) - amLODIPine (Norvasc) 10 mg tablet; Take 1 tablet (10 mg) by mouth once daily. - losartan (Cozaar) 50 mg tablet; Take 1 tablet (50 mg) by mouth once daily. Neck symptoms - XR cervical spine 2-3 views; Future Follow up in 3 months. Sooner if blood pressure is high. Rajinder Osei MD MPH documented in [facility] encounterC[facility] Work Phone: 1([phone]) 218-982212-26-2023 Instructions* Patient Instructions* Rajinder Osei MD MPH - 11/16/2023 4:00 PM EST Please start taking Amlodipine along with losartan. Take half a tablet for the first 3 weeks. After 3 weeks, you can increase the dose of Amlodipine to1 tablet daily if your blood pressure is still high. documented in [facility] encounterC[facility] Work Phone: 1(125) 559-154108-18-2023 History of Present illness Narrative* Rajinder Osei MD MPH - 07/09/2023 7:40 AM EDT Subjective Patient ID: Norberto Mullins is a 58 y.o. male who presents for Follow-up. HPI PT is here today for his 3-6 week fuv. States his back on the right side below the ribs is really hurting. States Wednesday morning, he turned to his left and felt a little pain and turned to his right and it was horrible pain. He states its a level 10 pain. Cannot think of any injuries to the area. Denies HX of Kidney stone, denies hematuria and dysuria. Been taking advil and it is not helping. Did try heat, did not help, did not ice. Plan: Brought BP log, states BP could be high due to pain Plan: Increasing the Losartan Trigger Point Injection Pre-operative diagnosis: Myofascial pain Post-operative diagnosis: Myofascial pain After risks and benefits were explained including bleeding, infection, worsening of the pain, damage to the area being injected, weakness, allergic reaction to medications, vascular injection, and nerve damage, written consent was obtained. All questions were answered. The area of the trigger pointwas identified and the skin prepped with alcohol and the alcohol allowed to dry. Next, a 25 gauge needle was placed in the area of the trigger point. Once reproduction of the pain was elicited and negative aspiration confirmed, the trigger point was injected and the needle removed. The patient did tolerate the procedure well and there were not complications. Medication used: 5 mLlidocaine without epinephrine Trigger points injected: 2 Trigger point(s) location(s): upper back Review of Systems ROS negative except discussed above in HPI. Vitals: 07/09/23 0756 BP: (!) 190/100 Pulse: 82 SpO2: 98% Objective Physical Exam Tenderness noticed in the chest wall and muscle spasm noticed as well. Assessment/Plan Norberto was seen today for follow-up. Diagnoses and all orders for this visit: Muscle spasm (Primary) - baclofen (Lioresal) 10 mg tablet; Take 1 tablet (10 mg) by mouth 3 times a day as needed for muscle spasms. Primary hypertension - losartan (Cozaar) 50 mg tablet; Take 1 tablet (50 mg) by mouth once daily. - Potassium; Future Abnormal fasting glucose - Hemoglobin A1c; Future Follow up as needed. Rajinder Osei MD MPH documented in [facility] encounterC[facility] Work Phone: [phone]) [phone] Instructions* Patient Instructions* Rajinder Osei MD MPH - 07/09/2023 7:40 AM EDT Blood test in a week. Increase the dose of Losartan to 50mg. Take two of what you have fore now. Then you will get the increased dose the next time you refill. So take one after you get the refill. documented in this encounterC[facility] Work Phone: 1([phone]) 782-941007-07-2023 History of Present illness Narrative* Rajinder Osei MD MPH - 05/28/2023 8:20 AM EDT Subjective Patient ID: Norberto Mullins is a 58 y.o. male who presents for Follow-up (4 week OV. About the same, still having the SOB. States it has not gotten any better as far as he can tell. ). HPI Here for follow up of SOB. Normal Xray ECHO CONCLUSIONS: 1. Left ventricular systolic function is normal with a 55-60% estimated ejection fraction. 2. Spectral Doppler shows an impaired relaxation pattern of left ventricular diastolic filling. 3. Mildly ectatic aortic root: Measurement at the sinotubular junction is 3.9 cm. Continues to have symptoms. Mostly with short walks up the hill/incline or sometimes at rest as well. His BP is high again today. He reports that it has been high always. Recommended treatment. Will start amlodipine and losartan. Discussed side-effects. Labs before the next appointment. Review of Systems ROS negative except discussed above in HPI. Vitals: 05/28/23 0819 BP: (!) 170/100 Pulse: 75 SpO2: 95% Objective Physical Exam Constitutional: Appearance: Normal appearance. Cardiovascular: Rate and Rhythm: Normal rate and regular rhythm. Pulmonary: Effort: Pulmonary effort is normal. Breath sounds: Normal breath sounds. Neurological: Mental Status: He is alert. Assessment/Plan Norberto was seen today for follow-up. Diagnoses and all orders for this visit: Primary hypertension (Primary) - amLODIPine (Norvasc) 5 mg tablet; Take 1 tablet (5 mg) by mouth once daily. - losartan (Cozaar) 25 mg tablet; Take 1 tablet (25 mg) by mouth once daily. - Basic metabolic panel; Future Alcohol abuse counseling and surveillance - Hepatic function panel; Future Follow up in 3-4 weeks. Rajinder Osei MD MPH documented in this encounterC[facility] Work Phone: 1([phone]) [phone] Instructions* Patient Instructions* Rajinder Osei MD MPH - 05/28/2023 8:20 AM EDT Start Amlodipine first. After a week start taking Losartan. documented in this encounterC[facility] Work Phone: 1([phone]) [phone] History of Present illness Narrative* Pt did have improved L D2 flex w/surinamese e-stim. Pt reported pain increased to an 8/10 pain w/iastmover scar. He denied pain at the end of the session. * Patient was able to complete today's treatment with some difficulty. [facility] Work Phone: [phone]) [phone] History of Present illness NarrativePatient is a very pleasant 56-year-old male who presents today for follow-up with regards to his left index finger. He only has very minimal pain discomfort but he does have mild amount of swelling. His lacerations did heal very nicely has been in a splint for the last 6 weeks. He denies any pain currently. He does have significant stiffness of the finger.-[facility] Work Phone: Evaluation note* Diagnosis Primary hypertension- Primary Unspecified essential hypertension Alcohol abuse counseling and surveillance documented in this encounter [facility] Work Phone: [phone] note* Diagnosis Muscle spasm- Primary Spasm of muscle Primary hypertension Unspecified essential hypertension Abnormal fasting glucose documented in this encounter [facility] Work Phone: [phone] note* Diagnosis Primary hypertension- Primary Unspecified essential hypertension Neck symptoms documented in this encounter [facility] Work Phone: [phone] note* Diagnosis Neck symptoms documented in this encounter [facility] Work Phone: [phone] note* Diagnosis Low back strain, initial encounter- Primary documented in this encounter [facility] Work Phone: [phone] note* Diagnosis Lipid screening- Primary Screening for lipoid disorders Primary hypertension Unspecified essential hypertension Alcohol abuse counseling and surveillance documented in this encounter [facility] Work Phone: [phone] note* Diagnosis Lumbar radiculopathy- Primary Thoracic or lumbosacral neuritis or radiculitis, unspecified Chronic bilateral low back pain with left-sided sciatica Encounters for administrative purpose Encounters for unspecified administrative purpose documented in this encounter [facility] Work Phone: [phone] note* Diagnosis Diarrhea, unspecified type- Primary Left lower quadrant abdominal pain Heartburn Pain of left hip Primary hypertension Unspecified essential hypertension documented in this encounter [facility] Work Phone: [phone] note* Diagnosis Screening for cardiovascular condition- Primary Screening for other and unspecified cardiovascular conditions Encounter for screening for lung cancer Prostate cancer screening Special screening for malignant neoplasm of prostate Primary hypertension Unspecified essential hypertension documented in this encounter [facility] Work Phone: [phone] note* Diagnosis Diarrhea, unspecified type- Primary Swelling of abdomen Abdominal or pelvic swelling, mass or lump, unspecified site Left lower quadrant abdominal pain documented in this encounter [facility] Work Phone: [phone] note* Diagnosis Diarrhea, unspecified type Swelling of abdomen Abdominal or pelvic swelling, mass or lump, unspecified site Left lower quadrant abdominal pain documented in this encounter [facility] Work Phone: [phone] note* Diagnosis Dyspnea on exertion- Primary Other dyspnea and respiratory abnormality Primary hypertension Unspecified essential hypertension Shoulder arthritis Unspecified arthropathy, shoulder region documented in this encounter [facility] Work Phone: [phone] note* Diagnosis Dyspnea on exertion Other dyspnea and respiratory abnormality documented in this encounter [facility] Work Phone: [phone] note* Diagnosis Nicotine dependence, unspecified, uncomplicated documented in this encounter [facility] Work Phone: [phone] note* Diagnosis Insomnia, unspecified type- Primary Heartburn Anxiety Anxiety state, unspecified Depression, unspecified depression type Prostate cancer screening Special screening for malignant neoplasm of prostate documented in this encounter [facility] Work Phone: [phone] note* Diagnosis Heartburn- Primary Insomnia, unspecified type Anxiety Anxiety state, unspecified Depression, unspecified depression type Arthritis of both shoulders Alcohol abuse counseling and surveillance documented in this encounter [facility] Work Phone: History of Present illness NarrativePatient is a pleasant 56-year-old male who presents today in follow-up with regards to his left index finger fracture and previous laceration. He occasionally has some pain in the finger but has beentrying to improve his activity level.[facility] Work Phone: History of Present illness NarrativePatient is a pleasant 56-year-old male who presents today in follow-up with regards to his left index finger fracture and previous laceration. He occasionally has some pain in the finger but has beentrying to improve his activity level.[facility] [address] Work Phone: History of Present illness NarrativePatient is a very pleasant 56-year-old male who presents today in follow-up with regards to his left index finger fracture. He has been trying to work on range of motion but is continuing to have significant stiffness she has no pain but has slight swan- neck deformity of the index finger.[facility] Work Phone: History of Present illness Narrative* Patient was evaluated today for crush injury L hand causing fx of L index finger. Pt presents with decreased ROM in L index finger especially in flexion. Pt denies pain with palpation or P/AROM, and is developing swan neck deformity in index finger. Attempted to fit pt for oval-eight splint howeverlargest size too small to fit pt comfortably and provide proper support without decreased skin integrity. Pt with increased edema in L D2 PIP and D3 DIP. R manager hi strength 92# which is his dominant hand, with involved L hand strength 78#. Pt comparable skills with FMC/coordination for 9HPT and p<>f translation of pennies between R/L hands. Injury does not hinder pt's FM skills per his report and per testing at [facility]. Pt hypermobile in joints of R hand especially MCPs, with noted limitations in ROM of L hand MCP/PIP/DIP. Pt would benefit from increasing L manager hi strength and ROM of digits to maximize functional independence and use of this hand. Pt provided with PROM HEP with education on frequency of completion, and L D2/3 finger sleeves to assist with edema management. Pt would benefit from regular outpatient OT 2x/week for 4 weeks for a total of 8 visits in order to improve AROM/PROM, strengthening, coordination, scar management, edema management, and activity tolerance to improve functional independence in ADLs/IADLs/work tasks. * Level of Complexity: low * Problems To Be Addressed: decreased ADL performance, decreased IADL performance, decreased work, decreased knowledge of HEP, scar, decreased ROM/joint mobility and decreased strength. [facility] Work Phone: History of Present illness Narrative* Pt required cues to decrease pain w/putty and abd exercises. He denied pain at the end of the session. * Patient was able to complete today's treatment with some difficulty. [facility] Work Phone: History of Present illness Narrative* Pt reported popping in D2/3 MCP joints w/bead activity but denied pain. Pt rubbing dorsal forearmproximally reporting fatigue. Pt reports making a fist he feels discomfort. He denied pain at rest at the end of the session. * Patient was able to complete today's treatment with some difficulty. [facility] Work Phone: History of Present illness Narrative* Patient was able to demonstrated/taught back good understanding of personalized exercise program asverbalized, demonstrated and/or provided in printed format. * Reassessment completed on pt this date to assess pt's progress made towards established goals. Pt without pain with ROM/MMT, and reported upgraded purple putty felt much more resistive. Pt educated that still has baker resistance blue putty at home if needs to use on more painful/stiff days. Pt increased L manager hi strength and decreased DASH score supporting his increased independence in daily tasks including cutting wood and riding his motorcycle. Pt increased in AROM D2 MCP ext, D2 PIP ext, D2DIP extension, and D3 DIP flexion. Pt presents with continued edema/tightness in joints of D2-3 on L hand. Pt tolerated tendon glides well this date, and educated on completion at home in additional to putty and PROM HEP. Pt encouraged to use blunt end of butter knife at home for continued IASTM. Plan for future sessions includes more aggressive scar and edema management. Pt would benefit from continued OT intervention to increase ROM in L D2-3 along with increased strength to maximize independence in daily tasks for higher quality of life. * Patient was able to complete today's treatment with some difficulty. [facility] Work Phone: History of Present illness Narrative* Patient is here for completing paperwork for his work. He has [place] which he limits his number of hours of work. He reports that he is potentially going to a different schedule soon in his workplace requires him to get this filled. * Paperwork filled. -[facility] Work Phone: History of Present illness Narrative* Patient is here with request to fill his [place]. Patient has history of degenerative arthritis of lumbar spine, bilateral shoulder pain, fracture of left index finger, and foot pain as well. Requesting to fill the [facility] paperwork as employer is requiring it now again. Most of his leave of absence or around weekends so employer was not happy with this. However patient reports that there were days that point in the middle of the weekend as well. Reports that the pain symptoms in his back and shoulders have been progressively worsening. He has been working with an orthopedic surgeon for his shoulder pain. He has been receiving injections in his shoulder joint. However last time when he w ent he received his bill as the injection was performed under imaging which was expensive. He is inthe process of finding a new orthopedic surgeon. Reports that his last lumbar spine x-ray is in 2008. May need to repeat it soon. * Additionally, patient has had an accident where he dropped a log of wood on his left foot. This caused severe swelling and bruising in his left foot. This was about 2 months ago. He was ambulating with pain previously. However despite waiting for 2 months his pain is not completely resolved. He has applied cold and warm compresses initially. Currently not applying anything. Noticed that swelling is persistent as well. Has not been evaluated in the past. * Plan: Ordering an x-ray for further evaluation. * Unable to comment on pattern with which the symptoms might arise. Patient reports that he is being absent from work only when he has significant flareups. Fill his [facility] paperwork to the best of my knowledge. * Follow-up in 6 months for routine health checkup. [facility] Work Phone: History of Present illness Narrative* Patient is here with request to fill his [facility] paperwork. Patient has history of degenerative arthritis of lumbar spine, bilateral shoulder pain, fracture of left index finger, and foot pain as well. Requesting to fill the [facility] paperwork as employer is requiring it now again. Most of his leave of absence or around weekends so employer was not happy with this. However patient reports that there were days that point in the middle of the weekend as well. Reports that the pain symptoms in his back and shoulders have been progressively worsening. He has been working with an orthopedic surgeon for his shoulder pain. He has been receiving injections in his shoulder joint. However last time when he w ent he received his bill as the injection was performed under imaging which was expensive. He is inthe process of finding a new orthopedic surgeon. Reports that his last lumbar spine x-ray is in 2008. May need to repeat it soon. * Additionally, patient has had an accident where he dropped a log of wood on his left foot. This caused severe swelling and bruising in his left foot. This was about 2 months ago. He was ambulating with pain previously. However despite waiting for 2 months his pain is not completely resolved. He has applied cold and warm compresses initially. Currently not applying anything. Noticed that swelling is persistent as well. Has not been evaluated in the past. * Plan: Ordering an x-ray for further evaluation. * Unable to comment on pattern with which the symptoms might arise. Patient reports that he is being absent from work only when he has significant flareups. Fill his [place] paperwork to the best of my knowledge. * Follow-up in 6 months for routine health checkup. [facility] Work Phone: Reason for referral (narrative)No reason for referral information availableWMemorial Health [facility] Work Phone: Reason for referral (narrative)* Consultation (Routine) - Authorized Specialty Diagnoses / Procedures Referred By Lore velasquez Referred To Contact Primary Care Procedures Follow Up In Primary Care - Established Sherwin Bello PA-C [address] [facility], [address] [address] Phone: tel: fax: Referral ID Status Reason Start Date Expiration Date V isits Requested Visits Authorized [id number] Authorized 05/17/2025 05/17/2026 1 1 [facility] Work Phone: Regqrw for visit Narrative* Initial Evaluation, Evaluation and Treatment. * Reason for Referral: Closed fracture of middle phalanx of left index finger with routine healing (U07.886G). * [facility]ari. [facility]: Rencjv for visit Narrative* Initial Evaluation, Evaluation and Treatment. * Reason for Referral: Closed fracture of middle phalanx of left index finger with routine healing (Y27.428K). * Referred [facility] Suz[facility]hari. [facility] Work [facility]: Remskm for visit Narrative* CV Imaging (Routine) - Authorized Specialty Diagnoses / Procedures Referred By Lore velasquez Referred To Contact Cardiology Diagnoses Dyspnea on exertion Procedures Echocardiogram Stress Test ID ECHO TTHRC R-T 2D W/WO M-MODE COMPLETE REST&ST Sherwin Bello PA-C [address] [facility], [place] [address] [place] [address] Phone: tel: fax: [facility] [address] [place] [address] Phone: tel: fax: Referral ID Status Reason Start Date Expiration Date Visits Requested Visits Authorized [id number] Authorized Perform Procedure 4 11/14/2025 1 1 [facility] Work Phone: Reason for visit Narrative* Imaging (Routine) - Pending Review Specialty Diagnoses / Procedures Referred By Lore t Referred To Contact Radiology Diagnoses Nicotine dependence, unspecified, uncomplicated Procedures CT cardiac scoring wo IV contrast Anyi Yoder PA-C [address] [place] [address] Phone: tel: fax: Referral ID Status Reason Start Date Expiration Date Visits Requested Visits Authorized [id number] Pending Review Perform Procedure 12/20/2024 12/20/2025 1 1 [facility] Work Phone: Summary Purpose Family History No Family History Records Found Sibling Name Dates Details No pertinent family history( V49.89, Z78.9) Status:Active Mother Name Dates Details No pertinent family history( V49.89, Z78.9) Status:Active Father Name Dates Details No pertinent family history( V49.89, Z78.9) Status:Active Sibling Name Dates Details No pertinent family history( V49.89, Z78.9) Status:Active Mother Name Dates Details No pertinent family history( V49.89, Z78.9) Status:Active Father Name Dates Details No pertinent family history( V49.89, Z78.9) Status:Active Sibling Name Dates Details No pertinent family history( V49.89, Z78.9) Status:Active Mother Name Dates Details No pertinent family history( V49.89, Z78.9) Status:Active Father Name Dates Details No pertinent family history( V49.89, Z78.9) Status:Active Unknown Family Member Name Dates Details No pertinent family history: Mother, Father, Sibling(V49.89, Z78.9) Status:Active Unknown Family Member Name Dates Details No pertinent family history: Mother, Father, Sibling(V49.89, Z78.9) Status:Active Unknown Family Member Name Dates Details No pertinent family history: Mother, Father, Sibling(V49.89, Z78.9) Status:Active Unknown Family Member Name Dates Details No pertinent family history: Mother, Father, Sibling(V49.89, Z78.9) Status:Active Unknown Family Member Name Dates Details No pertinent family history: Mother, Father, Sibling(V49.89, Z78.9) Status:Active Unknown Family Member Name Dates Details No pertinent family history: Mother, Father, Sibling(V49.89, Z78.9) Status:Active Unknown Family Member Name Dates Details No pertinent family history: Mother, Father, Sibling(V49.89, Z78.9) Status:Active Unknown Family Member Name Dates Details No pertinent family history: Mother, Father, Sibling(V49.89, Z78.9) Status:Active Unknown Family Member Name Dates Details No pertinent family history: Mother, Father, Sibling(V49.89, Z78.9) Status:Active Unknown Family Member Name Dates Details No pertinent family history: Mother, Father, Sibling(V49.89, Z78.9) Status:Active Unknown Family Member Name Dates Details No pertinent family history: Mother, Father, Sibling(V49.89, Z78.9) Status:Active Unknown Family Member Name Dates Details No pertinent family history: Mother, Father, Sibling(V49.89, Z78.9) Status:Active Unknown Family Member Name Dates Details No pertinent family history: Mother, Father, Sibling(V49.89, Z78.9) Status:Active Unknown Family Member Name Dates Details No pertinent family history: Mother, Father, Sibling(V49.89, Z78.9) Status:Active Advance Directives No Advanced Directives Records Found Advance Directive Response Recorded Date/ Time Living Will No January 04 4:16pm Power of Utility Technician No January 04, 2025 4:16pm Chief Complaint Follow up left index finger fracture. c/o mild pain and swelling.Follow up left index finger fracture. c/o mild pain and swelling.Patient here for follow-up of left index finger fracture. Patient describes occasional, short-duration of pain in the finger, 3-5 times per day.Patient here for follow-up of left index finger fracture. Patient describes occasional, short-duration of pain in the finger, 3-5 times per day.1 MO F/U L INDEX FINGER FX. 50% ROM. PAIN-0needs fmla paperwork filled out due to shift change.pt. needs FMLA paperwork filled out.pt. needs FMLA paperwork filled out. Reason for Referral Specialty Diagnoses / Procedures Referred By Contac t Referred To Contact Radiology Diagnoses Neck symptoms Procedures XR cervical spine 2-3 views Rajinder Osei MD MPH [address] [facility], [place] [address] Referral ID Status Reason Start Date Expiration Date Visits Requested Visits Authorized [id number] Authorized Perform Procedure 3 11/15/2024 1 1 Specialty Diagnoses / Procedures Referred By Contac t Referred To Contact Radiology Diagnoses Encounter for screening for lung cancer Procedures CT lung screening low dose Rajinder Osei MD MPH [address] [facility], [place] [address] Referral ID Status Reason Start Date Expiration Date Visits Requested Visits Authorized [id number] Pending Review Perform Procedure 05/19/2024 05/19/2025 1 1 Specialty Diagnoses / Procedures Referred By Contac t Referred To Contact Radiology Diagnoses Screening for cardiovascular condition Procedures CT cardiac scoring wo IV contrast Rajinder Osei MD MPH [address] [facility], [place] [id number] Referral ID Status Reason Start Date Expiration Date Visits Requested Visits Authorized [id number] Pending Review Perform Procedure 05/19/2024 05/19/2025 1 1 Specialty Diagnoses / Procedures Referred By Contac t Referred To Contact Radiology Diagnoses Diarrhea, unspecified type Swelling of abdomen Left lower quadrant abdominal pain Procedures CT abdomen pelvis wo IV contrast Rajinder Osei MD MPH [address] [facility], [address] [place] [address] Referral ID Status Reason Start Date Expiration Date Visits Requested Visits Authorized [id number] Pending Review Perform Procedure 07/10/2024 07/10/2025 1 1 Referral ID Status Reason Start Date Expiration Date Visits Requested Visits Authorized [id number] Authorized Perform Procedure 07/10/2024 07/10/2025 1 1 Chief Complaint and Reason for Visit Chief Complaint Admit Date Diarrhea, Left Lower Quadrant Abdominal Pain October 16, 2024 3:24pm EORDERS October 16, 2024 4:55pm INT LABS October 25, 2024 9 :22am ABDOMINAL PAIN, ALCOHOL USE, DIARRHEA De cember 2023 8:19am Follow up January 18, 2025 3:12pm EORDER January 24, 2025 3:42 pm Reason for Visit Admit Date Alcohol abuse October 16, 2024 3:24pm Diarrhea October 16, 2024 3:24pm Fecal urgency October 16, 2024 3:24pm LLQ pain October 16, 2024 3:24pm Abdominal pain January 05, 2025 1:06pm Diarrhea January 05, 2025 1:06pm Heartburn January 05, 2025 1:06pm LLQ pain January 05, 2025 1:06pm Alcohol abuse January 18, 2025 3:12pm Constipation January 18, 2025 3:12pm Diarrhea January 18, 2025 3:12pm Esophagitis January 18, 2025 3:12pm Fecal urgency January 18, 2025 3:12pm Chief Complaint Admit Date Follow up January 18, 2025 3:12pm EORDER January 24, 2025 3:42 pm Test Result May 07, 2025 3:07 pm Reason for Visit Admit Date Alcohol abuse January 18, 2025 3:12pm Constipation January 18, 2025 3:12pm Diarrhea January 18, 2025 3:12pm Esophagitis January 18, 2025 3:12pm Fecal urgency January 18, 2025 3:12pm Diarrhea May 07, 2025 3:07 pm Esophagitis May 07, 2025 3:07 pm Fecal incontinence Isabela 16th, 2025 3:07 pm Fecal urgency May 07, 2025 3:07 pm Additional Source Comments (unrecognized sect ion and content) No Status Records FoundNo Status Records FoundNo Status Records FoundNo Status Records FoundNo Status Records FoundNo Status Records FoundNo Status Records FoundNo Status Records FoundNo Status Records Found INFORMATION SOURCE (unrecogn ized section and content) DATE CREATED AUTHOR 11/29/2018 [facility] DATE CREATED AUTHOR AUTHOR'S ORGANIZ ATION 04/21/2022 [employer] DATE CREATED AUTHOR AUTHOR'S ORGANIZ ATION 10/21/2022 [facility] DATE CREATED AUTHOR AUTHOR'S ORGANIZ ATION 07/07/2023 [facility] DATE CREATED AUTHOR AUTHOR'S ORGANIZ ATION 08/18/2024 [facility] DATE CREATED AUTHOR AUTHOR'S ORGANIZ ATION 02/04/2025 [facility] DATE CREATED AUTHOR AUTHOR'S ORGANIZ ATION 05/19/2025 [facility] DATE CREATED AUTHOR AUTHOR'S ORGANIZ ATION 05/19/2025 [facility] DATE CREATED AUTHOR AUTHOR'S ORGANIZ ATION 08/04/2025 [facility] <item> Privacy Markings (unrecogniz ed section and content) Section Author: Fabiana Rae PROHIBITION ON REDISCLOSURE OF CONFIDENTIAL INFORMATION This notice accompanies a disclosure of information concerning a client made to you with the consent of such client. Reason for Visit (unrecogniz ed section and content) Reason Comments Follow-up 4 week OV. About the same, still having the SOB. States it has not gotten any better as far as he can tell. Reason Comments Follow-up PT is here today for his 3-6 week fuv. States his back on the right side below the ribs is really hurting. States Wednesday morning, he turned to his left and felt a little pain and turned to his right and it was horrible pain. He states its a level 10 pain. Cannot think of any injuries to the area. Denies HX of Kidney stone, denies hematuria and dysuria. Been taking advil and it is not helping. Did try heat, did not help, did not ice. Brought BP log, states BP could be high due to pain Reason Comments Follow-up PT is here today for 3 month FUV. Reports his neck has been cracking and popping more than he remembers. Denies pain. Denies injury to the area. Reports its been going on for the last month. Specialty Diagnoses / Procedures Referred By Contac t Referred To Contact Radiology Diagnoses Neck symptoms Procedures XR cervical spine 2-3 views Rajinder Osei MD MPH [address] [facility], [facility] [address] [place] [phone] Referral ID Status Reason Start Date Expiration Date Visits Requested Visits Authorized [id number] Authorized Perform Procedure 3 11/15/2024 1 1 Reason Comments Back Pain Low back pain X 1 da y after bending over Reason Comments Follow-up PT is here today for 3 month FUV Reason Comments FMLA PT is here today for FMLA paper work to be filled out. Reason Comments pt here for month med check Pt is having left hip pain Reason Comments Follow-up Pt is here today for 3 month FUV. Lipid due 04/03/29. Colonoscopy good until 03/11/26 Reason Comments Sick PT is here today for his stomach growing in size over the last 6 weeks, reports on Wednesday he noticed it appeared to be smaller. States he was never in constant pain, it was intermittent. Reports sitting was uncomfortable. Reports he has a lot of gas but denies N/V. Denies diet affected, but reports when he would eat and then sit down, it was more uncomfortable. Reports he gets may faster. Reports he has diarrhea all the time, but denies blood. Has taken anti acids but those do not help. Specialty Diagnoses / Procedures Referred By Contac t Referred To Contact Radiology Diagnoses Diarrhea, unspecified type Swelling of abdomen Left lower quadrant abdominal pain Procedures CT abdomen pelvis wo IV contrast Rajinder Osei MD MPH [address] [facility], [address] [place] [address] Referral ID Status Reason Start Date Expiration Date Visits Requested Visits Authorized [id number] Authorized Perform Procedure 07/10/2024 07/10/2025 1 1 Reason Comments pt here for 6 month med check Pt c/o doreen ateral shoulder pain , did have cortisone shots in the past Reason Comments Medication Check Reason Comments Follow-up 6 month Specialty Diagnoses / Procedures Referred By Lore velasquez Referred To Contact Primary Care Procedures Follow Up In Primary Care - Established Sherwin Bello PA-C [address] [facility], [address] [place] [address] Phone: tel: fax: Referral ID Status Reason Start Date Expiration Date V isits Requested Visits Authorized [id number] Authorized 11/14/2024 11/14/2025 1 1 Care Teams (unrecognized sec tion and content) Fire Inspector Relationship Specialty Start Date End Date Rajinder Osei MD MPH [address] [facility], [address] [place] [phone] PCP - [facility] PCP 05/22/22 Rajinder Osei MD MPH [address] [facility], [address] [place] [phone] PCP - General Family Medicine 04/29/23 Fire Inspector Relationship Specialty Start Date End Date Rajinder Osei MD MPH [address] [facility], [address] [place] [phone] PCP - [facility] PCP 05/22/22 Rajinder Osei MD MPH [address] [facility], [address] [place] [phone] PCP - General Family Medicine 04/29/23 Fire Inspector Relationship Specialty Start Date End Date Rajinder Osei MD MPH [address] [facility], [address] [place] [address] PCP - [facility] PCP 05/22/22 Rajinder Osei MD MPH [address] [facility], [address] [place] [phone] PCP - General Family Medicine 04/29/23 Fire Inspector Relationship Specialty Start Date End Date Rajinder Osei MD MPH [address] [facility] [place] [address] [place] [phone] PCP - [facility] PCP 05/22/22 Rajinder Osei MD MPH [address] [facility], [address] [place] [phone] PCP - General Family Medicine 04/29/23 Fire Inspector Relationship Specialty Start Date End Date Rajinder Osei MD MPH [address] [facility], [address] [place] [phone] PCP - [facility] PCP 05/22/22 Rajinder Osei MD MPH [address] [facility] [place] [address] [place] [address] PCP - General Family Medicine 04/29/23 Fire Inspector Relationship Specialty Start Date End Date Rajinder Osei MD MPH [address] [facility] [place] [address] [place] [address] PCP - [facility] PCP 05/22/22 Rajinder Osei MD MPH [address] [facility] [place] [address] [place] [address] PCP - General Family Medicine 04/29/23 Fire Inspector Relationship Specialty Start Date End Date Rajinder sOei MD MPH [address] [facility], [address] [place] [address] PCP - [facility] PCP 05/22/22 Sherwin Bello PA-C [address] [facility], [address] [place] [address] PCP - General Family Medicine 09/28/24 Fire Inspector Relationship Specialty Start Date End Date Rajinder Osei MD MPH [address] [facility], [address] [place] [address] PCP - [facility] PCP 05/22/22 Rajinder Osei MD MPH [address] [facility], [address] [place] [address] PCP - General Family Medicine 04/29/23 Fire Inspector Relationship Specialty Start Date End Date Rajinder Osei MD MPH [address] [facility], [address] [place] [address] PCP - [facility] PCP 05/22/22 Rajinder Osei MD MPH [address] [facility], [address] [place] [address] PCP - General Family Medicine 04/29/23 Fire Inspector Relationship Specialty Start Date End Date Rajinder Osei MD MPH [address] [facility], [address] [place] [address] PCP - [facility] PCP 05/22/22 Fire Inspector Relationship Specialty Start Date End Date Rajinder Osei MD MPH [address] [facility], [address] [place] [address] PCP - [facility] PCP 05/22/22 Sherwin Bello PA-C [address] [facility], [address] [place] [address] PCP - General Family Medicine 09/28/24 Fire Inspector Relationship Specialty Start Date End Date Rajinder Osei MD MPH [address] [facility], [address] [place] [address] PCP - [facility] PCP 05/22/22 Sherwin Bello PA-C [address] [facility], [address] [place] [address] PCP - General Family Medicine 09/28/24 Fire Inspector Relationship Specialty Start Date End Date Rajinder Osei MD MPH [address] [facility], [address] [place] [address] PCP - [facility] PCP 05/22/22 Sherwin Bello PA-Pricila [address] [facility], [place] [address] PCP - General Family Medicine 09/28/24 Team Status: Active Member Role Status Dates ROSSANA Scales Primary Care Provider Active Team Status: Inactive Member Role Status Dates Dr. Handy Evangelista MD Primary Care Provider Acti ve Start: October 16, 2024 End: October 16, 2024 Mala Hill NP-C Attending Provider Active Start: October 16, 2024 End: October 16, 2024 ROSSANA Scales Referring Provider Active Sta rt: October 16, 2024 End: October 16, 2024 Team Status: Inactive Member Role Status Dates Dr. Handy Evangelista MD Primary Care Provider Acti ve Start: October 16, 2024 End: October 16, 2024 Mala Hill NP-C Attending Provider Active Start: October 16, 2024 End: October 16, 2024 Mala Hill NP-C Referring Provider Active Start: October 16, 2024 End: October 16, 2024 Team Status: Inactive Member Role Status Dates Dr. Handy Evangelista MD Primary Care Provider Acti ve Start: October 25, 2024 End: October 25, 2024 Mala Hill NP-C Attending Provider Active Start: October 25, 2024 End: October 25, 2024 Mala Hill NP-C Referring Provider Active Start: October 25, 2024 End: October 25, 2024 Team Status: Inactive Member Role Status Dates Mala Hill NP-C Attending Provider Active Start: November 10, 2024 End: November 10, 2024 Mala Hill NP-C Referring Provider Active Start: November 10, 2024 End: November 10, 2024 ROSSANA Scales Primary Care Provider Active Start: November 10, 2024 End: November 10, 2024 Team Status: Inactive Member Role Status Dates ROSSANA Scales Primary Care Provider Active Start: January 05, 2025 End: January 05, 2025 ROSSANA Scales Referring Provider Active Sta rt: January 05, 2025 End: January 05, 2025 Dr. Riky Perez DO Attending Provider Active Start: January 05, 2025 End: January 05, 2025 Team Status: Active Member Role Status Dates ROSSANA Scales Primary Care Provider Active Start: January 05, 2025 ROSSANA Scales Referring Provider Active Sta rt: January 05, 2025 Dr. Riky Perez DO Attending Provider Active Start: January 05, 2025 Dr. Riky Perez DO Other Provider Active St art: January 05, 2025 Team Status: Inactive Member Role Status Dates Dr. Handy Evangelista MD Referring Provider Active Start: January 18, 2025 End: January 18, 2025 TRAE Campuzano Attending Provider Active Start: January 18, 2025 End: January 18, 2025 ROSSANA Scales Primary Care Provider Active Start: January 18, 2025 End: January 18, 2025 Team Status: Inactive Member Role Status Dates ROSSANA Scales Primary Care Provider Active Start: January 22, 2025 End: January 22, 2025 Mala Hill NP-C Attending Provider Active Start: January 22, 2025 End: January 22, 2025 Mala Hill NP-C Referring Provider Active Start: January 22, 2025 End: January 22, 2025 Team Status: Active Member Role Status Dates ROSSANA Scales Primary Care Provider Active Start: January 24, 2025 Mala Hill NP-C Attending Provider Active Start: January 24, 2025 Mala Hill NP-C Referring Provider Active Start: January 24, 2025 Team Status: Inactive Member Role Status Dates ROSSANA Scales Primary Care Provider Active Start: January 24, 2025 End: January 24, 2025 NOVA CampuzanoC Attending Provider Active Start: January 24, 2025 End: January 24, 2025 Mala Hill NP-C Referring Provider Active Start: January 24, 2025 End: January 24, 2025 Fire Inspector Relationship Specialty Start Date End Date Rajinder Osei MD MPH [address] [facility], [place] [address] PCP - [facility] PCP 05/22/22 Sherwin Bello PA-C [address] [facility], [address] [place] [address] PCP - General Family Medicine 09/28/24 Team Status: Inactive Member Role Status Dates ROSSANA Scales Primary Care Provider Active Start: May 07, 2025 End: May 07, 2025 ROSSANA Scales Referring Provider Active Sta rt: May 07, 2025 End: May 07, 2025 TRAE Campuzano Attending Provider Active Start: May 07, 2025 End: May 07, 2025 Fire Inspector Relationship Specialty Start Date End Date Rajnider Osei MD MPH [address] [facility], [facility] [address] [place] [address] PCP - [facility] PCP 05/22/22 Sherwin Bello PA-C [address] [facility], [facility] [address] [place] [address] PCP - General Family Medicine 09/28/24 Goals (unrecognized section and content) Goals may be documented in a n alternate section FOR RECORDS PERTAINING TO PATIENTS WHO ARE OR HAVE BEEN ENROLLED IN A CHEMICAL DEPENDENCY/SUBSTANCEABUSE PROGRAM, SOME INFORMATION MAY BE OMITTED. This clinical summary was aggregated from multiple sources. Caution should be exercised in using it in the provision of clinical care. This summary normalizes information from multiple sources, and as a consequence, information in this document may materially change the coding, format and clinical context of patient data. In addition, data may be omitted in some cases. CLINICAL DECISIONS SHOULD BE BASED ON THE PRIMARY CLINICAL RECORDS. [email or web address] provides no warranty or guarantee of the accuracy or completeness of information in this document.
[2025-08-07] MEDS: Lactated Ringers 1,000 ML 15 ML IV (06:14)
--- NOTE | 2025-08-07 06:25 | PCM.PRE.AN2 ---
ASA Classification* ASA Classification ASA Classification: 2 Assessment & Plan Anesthesia* Anesthesia Assessment Anesthesia Assessment: Discussed sedation and/or anesthesia options, risks, benefits, and alternatives with patient/parents/legal guardian/POA. Questions invited. The patient/parents/legal guardian/POA seems to understand and agrees to proceed with anesthesia plan. Reviewed the physical assessment, medical history, allergy history and patient home medications list prior to surgery/procedure/anesthetic and documented any changes. Performed airway and anesthesia risk assessments. Anesthesia Type Anesthesia Type: MAC History Source History Obtained from:: Patient and Chart Anesthesia Focused Assessment* Temperature: 97.3 F Pulse Rate: 63 Blood Pressure: 120/79 Respiratory Rate: 18 Pulse Ox: 98 Oxygen Delivery Method: Room Air Airway Assessment Mouth opens: >3 cm Mallampati Score: III Teeth Condition: Dentures (Full upper dentures are out.) and Missing (Several missing teeth on the bottom. Rest are tight.) Neck Range of motion (ROM): Full ROM Labs Anesthesia Preop lab: CBC CHEMISTRY TSH 2.640 uIU/mL (0.358-3.740) 10/16/24 17:04 10/16/24 COAG PT 12.7 SECONDS (11.7-14.9) 10/16/24 17:04 10/16/24 Pre-Assessment Diagnosis/Proposed Procedure Planned Operative Procedure(s): EGD Anesthesia History Anesthesia History - material loader: Anesthesia History - material loader Hx Hospitalization No 08/03/25 14:40 Any Problems With Anesthesia No 08/03/25 14:40 Cholinesterase deficiency No 08/03/25 14:40 You/Your Family Experience No 08/03/25 14:40 fever (hyperthermia) with Relationship Recent Exposure to Contagious No 08/07/25 06:05 Disease Does patient have nerve No 08/03/25 14:40 stimulator Patient instructed to have device shut off --Does patient have Pacemaker or ICD? When Was Last Pacemaker Check QUESTION #4 FULL TEXT: You/Your Family Experience fever (hyperthermia) with Anesthesia Last Oral Intake Last Oral intake: Last Oral Intake NPO since 00:00 08/07/25 06:05 Meds taken in AM with sips of water? Meds patient instructed to take am of surgery PONV PONV - material loader: PONV - material loader Female No 08/03/25 14:40 HX of Motion Sickness No 08/03/25 14:40 HX of N/V After Surgery No 08/03/25 14:40 Non-Smoker No 08/03/25 14:40 Duration of Surgery greater No 08/03/25 14:40 than 60 minutes Number of Risk Factors PONV Score Height & Weight Height & Weight: Anesthesia: Height & Weight Height 5 ft 11 in 08/07/25 06:05 Weight: 88.2 kg 08/07/25 06:05 Body Mass Index (BMI) 27.1 08/07/25 06:05 Respiratory Assessment Respiratory Assessment - material loader: Respiratory Tract Infection Hx - material loader Hx Respiratory Tract Infection No 08/03/25 14:40 STOP Sleep Apnea STOP Sleep Apnea - material loader: STOP Sleep Apnea - material loader Hx Hypertension Yes: PER PT, CONTROLLED ON 08/03/25 14:40 MEDS Hx Sleep Apnea No 08/03/25 14:40 CPAP BIPAP Do you snore loudly (louder No 08/03/25 14:40 than talking or can be heard Do you often feel tired/ No 08/03/25 14:40 fatigued/ sleepy during daytime? Has anyone observed you stop No 08/03/25 14:40 breathing during sleep? STOP Results Negative 08/03/25 14:40 QUESTION #5 FULL TEXT : Do you snore loudly (louder than talking or can be heard through closed doors)? 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 Specify any problems Hx of Preganancy in last 3 N/A 08/03/25 14:40 Months Nurse Filling Out Transfusion MGRIFFITH 08/03/25 14:40 & Questions: Date: 08/03/25 08/03/25 14:40 Time: 14:42 08/03/25 14:40 Patient unable to answer at this time (ie. confused, unrespo /Reproduction History /Reproductive History - material loader: /Reproductive Hx- material loader Hx Now No 08/03/25 14:40 Gestational Age (in weeks): EDC: Hx Hx Para Hx Section SAB No 08/03/25 14:40 Active Medications Active Medications: Current Medications Generic Name Dose Route Start Last Admin Trade Name Freq PRN Reason Stop Dose Admin Lactated Ringer's 1,000 mls @ 15 mls/hr 08/07/25 06:00 08/07/25 06:14 IV 15 mls/hr .Q48H BRIDGET Administration PFSH Medical History Rash Hypertension Wears glasses Wears dentures Bladder disease Arthritis Back pain History of GI bleed History of IBS Smoker Shortness of breath on exertion History of echocardiogram History of stress test Primary hypertension Pain of left hip Heartburn Diarrhea Home Medications ?Medication ?Instructions ?Recorded ?Last Taken ?Type buspirone 7.5 mg tablet 7.5 mg PO BID 05/07/25 08/06/25 History duloxetine 20 mg capsule,delayed 20 mg PO BID 05/07/25 08/06/25 History release (Cymbalta) loperamide 2 mg capsule 2 mg PO Q6H 05/07/25 Unknown History pantoprazole 20 mg tablet,delayed 20 mg PO QDAY 05/07/25 08/06/25 History release trazodone 100 mg tablet 100 mg PO QDAY 05/07/25 08/06/25 History losartan 50 mg-hydrochlorothiazide 1 tab PO DAILY 08/03/25 08/06/25 History 12.5 mg tablet Allergy/AdvReac Type Severity Reaction Status Date / Time No Known Allergies Allergy Verified 08/07/25 06:03 Surgical History History of esophagogastroduodenoscopy (EGD) History of nasal surgery History of tooth extraction History of colonoscopy History of appendectomy History of tonsillectomy and adenoidectomy History of foot surgery Social History Smoking Status: Current some day smoker tobacco type: cigars alcohol intake: current details: drinking about 15-20 1oz shots of alcohol nightly Review of Systems (Anesthesia) ROS Narrative System reviewed and no additional complaints, except as documented.
--- NOTE | 2025-08-07 06:30 | EGD_PTH ---
PATIENT: HAKAN MUÑOZ LOC: EN U#:[id number] AGE/SX: 60/M ROOM: RE08/07/[address]: Dr. Riky Perez DO : 1965 BED: DIS: 08/07/2025 SPEC #: [id number] RECD: 08/07/25 07:53 STATUS: FIDENCIO REGuillermo #: [id number] DAVID: 08/07/25 06:[address]: Riky Perez DEPT: SURGICAL PATHOLOGY RECD BY: Hay Roe ENTERED: 08/07/25 14:13 SP TYPE: EGD BIOPSY OT DR: ROSSANA Scales Tissues: A - Esophagus, NOS B - Duodenum, NOS Procedures: Surgery Specimen Level IV HEADER OPERATION: EGD with biopsy PRE-OP DIAGNOSIS: Fecal incontinence, abdominal pain, diarrhea, fecal urgency TISSUE SUBMITTED: A- Distal esophagus biopsy, B- Duodenum biopsy MICROSCOPIC DIAGNOSIS A. Distal esophagus, biopsy: - Squamous mucosa with reactive changes. - Columnar mucosa negative for goblet cell metaplasia. B. Duodenum, biopsy: - Normal villous architecture with Bowen gland hyperplasia and focal gastric mucin cell metaplasia, suggestive of peptic injury. - Negative for increased intraepithelial lymphocytes. MICROSCOPIC DESCRIPTION Slides are reviewed. GROSS DESCRIPTION A. Received in fixative is one container labeled with the patient's name and designated Distal esophagus biopsy. The specimen consists of three irregular fragments of light aguilera soft tissue that measure 0.4 to 0.5 cm. The specimen is totally submitted in one cassette. B. Received in fixative is one container labeled with the patient's name and designated Duodenum biopsy. The specimen consists oftwo irregular fragments of light aguilera soft tissue that measure 0.3 and 0.6 cm. The specimen is totally submitted in one cassette. CT 08/07/2025 CPT:66705z1
--- NOTE | 2025-08-07 06:37 | PCM.HP.STD ---
HPI - General General Date of Admission: 08/07/25 Date of Service: 08/07/25 Chief Complaint: diarrhea HPI Narrative HAKAN MUÑOZ, is a 60 M who presents with the Chief Complaint: pain and diarrhea OV 01/18/2025 59y/o male presents for follow-up post procedures. Colonoscopy and EGD were performed 01/05/2025. EGD revealed Grade B esophagitis, portal hypertensive gastropathy; biopsies negative for H. pylori and celiac sprue. The colonoscopy revealed TAs and it is recommended he repeat the colonoscopy in 3 years (December 2027). He reports only taking 30d of pantoprazole and discontinuing as this made no improvement in his symptoms. I have started him on Voquezna 20mg daily for treatment of esophagitis and will repeat EGD in 3 months to assess healing. He is drinking beer and 30 ounces of [place] daily and has no desire to cease alcohol consumption. He is continuing to experience fecal leakage and occasional BRBPR with BM. He denies any rectal pain. Rectal exam is revealing for internal hemorrhoid at 4 o'clock. I have provided him a prescription for Anusol suppositories. Patient Instructions: - Sitz Marker testing - Hold Imodium while you complete Sitz Marker Testing - Start Voquezna 20mg daily - samples provided and a prescription was sent to [facility] they will mail you refills - Anusol suppositories for treatment of hemorrhoids - Soap and water to wash bottom after a bowel movement - EGD in 3 months to assess healing of esophagitis - Alcohol cessation is encouraged - Smoking cessation recommended - https://www.cdc.gov/tobacco/about/how-to-quit.html - Follow-up in the office in 4 months - penitentiary PPI or PCAB use at lowest dose possible to maintain symptom remission with chronic alcohol and tobacco use Fecal Calprotectin 10/25/2025 mildly elevated 75 (borderline) Fecal Elastase >800 - Started Voquezna - 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 - 5 day binge - last drink was 03/05 - he is not doing out patient or AA - today was 1st day back to work - lower abdominal discomfort, not really associated with a BM - pain is much less than what it was - still having some loose stools - he is taking Imodium 1-2x a day - since stopping alcohol stools have not decreased in frequency - he is having a BM every 2-3 hours, small stools and has urgency - still having leakage - previously took Cholestyramine 1pkt BID and showed no improvement - [facility] - he did like this place and would recommend it - no longer smoking marijuana [facility] Medical History Rash Hypertension Wears glasses Wears dentures Bladder disease Arthritis Back pain History of GI bleed History of IBS Smoker Shortness of breath on exertion History of echocardiogram History of stress test Primary hypertension Pain of left hip Heartburn Diarrhea Home Medications ?Medication ?Instructions ?Recorded ?Last Taken ?Type buspirone 7.5 mg tablet 7.5 mg PO BID 05/07/25 08/06/25 History duloxetine 20 mg capsule,delayed 20 mg PO BID 05/07/25 08/06/25 History release (Cymbalta) loperamide 2 mg capsule 2 mg PO Q6H 05/07/25 Unknown History pantoprazole 20 mg tablet,delayed 20 mg PO QDAY 05/07/25 08/06/25 History release trazodone 100 mg tablet 100 mg PO QDAY 05/07/25 08/06/25 History losartan 50 mg-hydrochlorothiazide 1 tab PO DAILY 08/03/25 08/06/25 History 12.5 mg tablet Allergy/AdvReac Type Severity Reaction Status Date / Time No Known Allergies Allergy Verified 08/07/25 06:03 Surgical History History of esophagogastroduodenoscopy (EGD) History of nasal surgery History of tooth extraction History of colonoscopy History of appendectomy History of tonsillectomy and adenoidectomy History of foot surgery Social History Smoking Status: Current some day smoker tobacco type: cigars alcohol intake: current details: drinking about 15-20 1oz shots of alcohol nightly ROS Constitutional Constitutional: Denies fatigue, fever(s), poor appetite, weight gain or weight loss Gastrointestinal Gastrointestinal: Denies belching, bloating, change in bowel habits, change in stool character, chewing difficulty, coffee ground emesis, constipation, cramping, diarrhea, dyspepsia, dysphagia, early satiety, excessive flatus, fecal incontinence, heartburn, hematemesis, hematochezia, hemorrhoids, loose stools, melena, nausea, odynophagia, rectal bleeding, tenesmus, vomiting or weight changes Vital Signs Vital Signs Vital Signs: 08/07/25 06:05 08/07/25 06:05 08/07/25 06:31 Temperature 97.3 F L 97.3 F L Temperature Source Temporal Pulse Rate 63 63 Respiratory Rate 18 18 Respiratory Pattern Normal Blood Pressure 120/79 120/79 Blood Pressure Mean 92 Blood Pressure Source Monitor Blood Pressure Position Semi-Fowlers Blood Pressure Location Right Arm Pulse Ox 98 98 Oxygen Delivery Method Room Air Room Air Weight Weight: 194 lb 7.163 oz Body Mass Index (BMI) 27.1 Physical Exam Const alert, oriented x3, no apparent distress and healthy appearing General Appearance: cooperative GI normal to inspection, nondistended, normoactive bowel sounds, soft to palpation, non-tender and non-distended Percussion: normal to percussion Rectal Exam: deferred Assessment & Plan Assessment/Plan (1) Fecal incontinence: (2) Abdominal pain: (3) Diarrhea: QUALIFIERS: Diarrhea type: unspecified type Qualified Code(s): R19.7 - Diarrhea, unspecified (4) Fecal urgency: PLAN: Assessment and Plan Assessment and Plan (1) Diarrhea: Status: Acute Qualifiers: Diarrhea type: unspecified type Qualified Code(s): R19.7 - Diarrhea, unspecified (2) Fecal urgency: Status: Acute (3) Esophagitis: Status: Acute (4) Fecal incontinence: Status: Acute Orders: Orders Calprotectin, Stool 05/07/25 K20.90 - Esophagitis, unspecified without bleeding, R15.2 - Fecal urgency, R15.9 - Full incontinence of feces, R19.7 - Diarrhea, unspecified Medications: Discontinued vonoprazan take one tablet daily in the morning with or without food Discontinued Reason: Order Completed 20 mg PO QDAY 30 tabs 3RF Plan HPI as noted above Patient Instructions: Discontinue Voquezna Continue pantoprazole 20mg daily EGD Fecal Calprotectin FODMAP Diet Smoking cessation recommended - https://www.cdc.gov/tobacco/about/how-to-quit.html Coding
--- NOTE | 2025-08-07 06:56 | OP.PROVAT_ITS ---
08/07/2025 Angelito Scales Re : Upper GI endoscopy procedure for Norberto Mullins Dear Joce This procedure was performed on Thursday, August 07, 2025. My impressions and recommendations are as follows: Impressions : - Z-line irregular, 40 cm from the incisors. Biopsied. - No gross lesions in the entire stomach. - Erythematous duodenopathy. Biopsied. Recommendations : - Discharge patient to home. - Resume previous diet. - Continue present medications. - Await pathology results. My findings are described in the full procedure note, which is enclosed. If I can be of further assistance, please feel free to contact me at . Sincerely, Riky Perez, 08/07/2025 6:55:15 AM This report has been signed electronically.
--- NOTE | 2025-08-07 06:56 | OP.EGD_ITS ---
Patient Name: Norberto Mullins Procedure Date: 08/07/2025 6:16 AM Date of : 1965 Age: 60 Procedure: Upper GI endoscopy Indications: Epigastric abdominal pain, Abdominal pain in the left upper quadrant, Heartburn, Suspected esophageal reflux Providers: Riky Perez DO Referring MD: Riky Perez DO Medicines: Monitored Anesthesia Care Patient Profile: This is a 60 year old male. Refer to note in patient chart for documentation of history and physical. Patient has symptoms of chronic abdominal cramping, chronic abdominal distention, acute left upper quadrant abdominal pain, acute epigastric abdominal pain, chronic dyspepsia, chronic heartburn and chronic nausea. Complications: No immediate complications. Procedure: Pre-Anesthesia Assessment: - Prior to the procedure, a History and Physical was performed, and patient medications and allergies were reviewed. The patient is competent. The risks and benefits of the procedure and the sedation options and risks were discussed with the patient. All questions were answered and informed consent was obtained. Patient identification and proposed procedure were verified by the physician in the pre-procedure area. Mental Status Examination: alert and oriented. Airway Examination: normal oropharyngeal airway and neck mobility. Respiratory Examination: clear to auscultation. CV Examination: normal. Prophylactic Antibiotics: The patient does not require prophylactic antibiotics. Prior Anticoagulants: The patient has taken no anticoagulant or antiplatelet agents except for NSAID medication. ASA Grade Assessment: II - A patient with mild systemic disease. After reviewing the risks and benefits, the patient was deemed in satisfactory condition to undergo the procedure. The anesthesia plan was to use monitored anesthesia care (MAC). Immediately prior to administration of medications, the patient was re-assessed for adequacy to receive sedatives. The heart rate, respiratory rate, oxygen saturations, blood pressure, adequacy of pulmonary ventilation, and response to care were monitored throughout the procedure. The physical status of the patient was re-assessed after the procedure. After obtaining informed consent, the endoscope was passed under direct vision. Throughout the procedure, the patient's blood pressure, pulse, and oxygen saturations were monitored continuously. The gastroscope was introduced through the mouth, and advanced to the third part of the duodenum. Small bowel enteroscopy was deemed necessary. The upper GI endoscopy was accomplished without difficulty. The patient tolerated the procedure well. Scope In: 6:45:51 AM Scope Out: 6:50:16 AM Total Procedure Duration Time 0 hours 4 minutes 25 seconds Findings: The Z-line was irregular and was found 40 cm from the incisors. Biopsies were taken with a cold forceps for histology. Verification of patient identification for the specimen was done. Estimated blood loss was minimal. No gross lesions were noted in the entire examined stomach. Patchy mildly erythematous mucosa without active bleeding and with no stigmata of bleeding was found in the duodenal bulb. Biopsies were taken with a cold forceps for histology. Verification of patient identification for the specimen was done. Estimated blood loss was minimal. Impression: - Z-line irregular, 40 cm from the incisors. Biopsied. - No gross lesions in the entire stomach. - Erythematous duodenopathy. Biopsied. Recommendation: - Discharge patient to home. - Resume previous diet. - Continue present medications. - Await pathology results. Procedure Code(s): --- Professional --- 89532, Small intestinal endoscopy, enteroscopy beyond second portion of duodenum, not including ileum; with biopsy, single or multiple CPT copyright 2021 [employer]. All rights reserved. The codes documented in this report are preliminary and upon speech correction consultant review may be revised to meet current compliance requirements. Riky Perez DO 08/07/2025 6:55:15 AM This report has been signed electronically. Number of Addenda: 0 Note Initiated On: 08/07/2025 6:16 AM
--- NOTE | 2025-08-07 06:58 | PCM.POST.ANE ---
Anesthesia: Postop Eval I Current Vital Signs Temperature: 97.8 F Pulse Rate: 67 Blood Pressure: 94/68 Respiratory Rate: 16 Pulse Ox: 96 Oxygen Delivery Method: Room Air Assessment Airway patent: Yes Spontaneous unlabored respirations: Yes Mental status: Asleep nausea: No Vomiting: No Anesthesia Complication: No Fluid Hydration Crystalloid volume administer (ml): 300 Total IV fluid infused: 300 Progress Note Anesthesia document: Postop Eval 1 completed: Yes
--- NOTE | 2025-08-07 08:00 | PCM.POSTANE2 ---
Anesthesia Postop Eval I Sum Postop Eval Completion status Anesthesia document: Postop Eval 1 completed: Yes Anesthesia Postop Eval I Summary Anesthesia Postop Eval I Summary: Anesthesia Postop Eval I: Assessment Summary Airway patent Yes 08/07/25 06:59 [email or web address] Spontaneous unlabored Yes 08/07/25 06:59 [email or web address] respirations Mental status Asleep 08/07/25 06:59 [email or web address] nausea No 08/07/25 06:59 [email or web address] Vomiting No 08/07/25 06:59 [email or web address] Anesthesia Postop Eval I: Fluid Summary Crystalloid volume administer 300 08/07/25 06:59 [email or web address] (ml) Colloids volume administered ( ml) Blood Product volume administered (ml) Total IV fluid infused 300 08/07/25 06:59 [email or web address] Anesthesia Postop Eval I: Summary Notes Anesthesia Complication No 08/07/25 06:59 [email or web address] Anesthesia Complication Comment: Post-operative progress note Anesthesia: Postop Eval II Evaluation Mental status: Awake and Calm Pain Level: 0 nausea: No Vomiting: No Complications Anesthesia Complication: No
== END 2025-08-07 07:39 | disposition home or self-care (01) ==
LOC: EN 05:39 → AC 05:39
PROVIDERS: PCP Physician Assistant; Referring Provider Physician Assistant; Visit Provider Internal Medicine Gastroenterology
PROC: 0DJ08ZZ Inspection of Upper Intestinal Tract, Via Natural or Artificial Opening Endoscopic (ICD-10-PCS; CPT 43235; principal; 2025-08-07 06:25)
DX: R19.7 Diarrhea, unspecified (principal); K64.8 Other hemorrhoids; K20.90 Esophagitis, unspecified without bleeding; I10 Essential (primary) hypertension; R10.9 Unspecified abdominal pain; R15.9 Full incontinence of feces; Z90.49 Acquired absence of other specified parts of digestive tract; F17.290 Nicotine dependence, other tobacco product, uncomplicated; R15.2 Fecal urgency; K22.89 Other specified disease of esophagus; K31.89 Other diseases of stomach and duodenum
CPT/HCPCS: 43239; 88305; J2405